=== PATIENT | female | born 1950 | race Caucasian/White ===

== ENCOUNTER 2017-10-05 16:59 | Inpatient (IN) | payer OTHER ==
--- NOTE | 2017-10-05 17:13 | PDOC ---
Rapid Medical Evaluation Time Seen by Provider: 10/05/17 17:08 Medical Evaluation: 10/05/17 17:11 The patient presents with a chief complaint of: SOB on exertion, weakness, tachycardia. Hx of stage 4 metastatic breast cancer. PCP concerned for blood clot behind the port site. last chemo one week ago. Started feeling SOB on Monday. Not on a/c I have performed a brief in-person evaluation of this patient; Pertinent physical exam findings: HR 99, O2 sat 96% I have ordered the following: CBC, CMP, EKG, CXR, PT/INR, CTA Chest, Cardiac labs The patient will proceed to the ED for further evaluation.
[2017-10-05 17:17] VITALS: BMI 29.7
[2017-10-05 18:11] LABS: INR 1.12 (0.82-1.09); PROTHROMBIN TIME (PATIENT) 12.6 SEC (9.98-11.88)
[2017-10-05 18:41] LABS: HEMATOCRIT 31.2 % (32.4-45.2); HEMOGLOBIN 10.1 GM/dL (10.7-15.3); MCH 27.5 pg (25.7-33.7); MCHC 32.5 g/dl (32.0-36.0); MEAN CELL VOLUME 84.6 fl (80-96); MEAN PLT VOLUME 8.4 fl (7.5-11.1); PLATELET COUNT 308 K/MM3 (134-434); RBC 3.69 M/mm3 (3.60-5.2); RDW 19.5 % (11.6-15.6); WHITE BLOOD COUNT 28.8 K/mm3 (4.0-10.0)
[2017-10-05 18:44] LABS: ALBUMIN 2.6 g/dl (3.4-5.0); ALK PHOS 156 U/L (45-117); ANION GAP 10 (8-16); BILIRUBIN,TOTAL 0.4 mg/dL (0.2-1.0); BLOOD UREA NITROGEN 11 mg/dL (7-18); CALCIUM 8.3 mg/dL (8.5-10.1); CHLORIDE 98 mmol/L (98-107); CO2 26 mmol/L (21-32); CREATININE 0.9 mg/dL (0.55-1.02); GLUCOSE,RANDOM 287 mg/dL (74-106); POTASSIUM 4.1 mmol/L (3.5-5.1); SGOT/AST 18 U/L (15-37); SGPT/ALT 17 U/L (12-78); SODIUM 134 mmol/L (136-145); TOT PROT 6.3 g/dl (6.4-8.2)
[2017-10-05 18:59] LABS: N-TERMINAL BNP 80.22 pg/ml (5-125)
[2017-10-05 19:36] LABS: PLATELET ESTIMATE ADEQUATE
--- NOTE | 2017-10-05 20:15 | PDOC ---
Attending Attestation - Resident Resident Name: Lino Wilson - ED Attending Attestation I have performed the following: I have examined & evaluated the patient, The case was reviewed & discussed with the resident, I agree w/resident's findings & plan, Exceptions are as noted - Medical Decision Making 10/05/17 20:15 I, Dr. Angeles Goss DO, attest that this document has been prepared under my direction and personally reviewed by me in its entirety. I further attest, that it accurately reflects all work, treatment, procedures and medical decision -making performed by me. 10/05/17 21:10 a/p: 67yo female with epigastric abd pain -pt with elevated wbc -suspected pna on cxr -ct does not show pna -will keep for ivf hydration and gi pain control -discussed with PMD who agrees with the plan -suspect epigastric pain from steroid induced gastritis <Angeles Goss - Last Filed: 10/05/17 21:10> - HPI HPI: 10/05/17 21:14 The patient is a 67 year old female, with a significant past medical history of stage 4 metastatic breast cancer, hypertension, hyperlipdemia and DM who presents to the ED complaining of an epigastric burning sensation beginning prior to arrival. The patient reports she visited her PCP Dr. Mathur earlier today who advised her to come to the ED for evaluation. Allergies: NKA Documentation prepared by Abad Coulter, acting as medical instrument cable fabricator for Angeles Goss DO. - Physicial Exam PE: 10/05/17 21:15 GENERAL: Awake, alert, and fully oriented. HEAD: No signs of trauma EYES: PERRLA, EOMI, sclera anicteric, conjunctiva clear ENT: Auricles normal inspection, hearing grossly normal, nares patent, oropharynx clear without exudates. Moist mucosa NECK: Normal ROM, supple, no lymphadenopathy, JVD, or masses LUNGS: Breath sounds equal, clear to auscultation bilaterally. No wheezes, and no crackles HEART: Regular rate and rhythm, normal S1 and S2, no murmurs, rubs or gallops ABDOMEN: +Tenderness to the epigastric region. Soft, normoactive bowel sounds. No guarding, no rebound. EXTREMITIES: Normal range of motion, no edema. No clubbing or cyanosis. No cords, erythema, or tenderness NEUROLOGICAL: Cranial nerves II through XII grossly intact. Normal speech. SKIN: Warm, Dry, normal turgor, no rashes or lesions noted. <Abad Coulter - Last Filed: 10/05/17 21:35>
[2017-10-05] MEDS ORDERED: VANCOMYCIN 1,000 MG in DEXTROSE 5%-WATER - 250 ML IVPB ONE (20:17)
[2017-10-05] MEDS ORDERED: PIPERACILLIN/TAZOB 4.5 GM/100 ML PRE-DOCKED IVPB ONE (20:17)
--- NOTE | 2017-10-05 20:18 | PDOC ---
History of Present Illness - General Chief Complaint: Shortness of Breath Stated Complaint: PCP SENT/BRADYCARDIA Time Seen by Provider: 10/05/17 17:08 History Source: Patient, Family (Daughter at bedside, translating) Exam Limitations: No Limitations - History of Present Illness Initial Comments: 10/05/17 21:15 The patient is a 67F with a PMH of stage 4 breast CA, HTN, HLD, DM who presents to the ER with complaints of worsening SOB. The patient states that her last chemo was on and she followed up with Dr. Mathur and her live in housekeeper. She was told to come to the ER for evaluation of her SOB because they were not able to do an echo in the clinic. She is complaining of increasing and worsening SOB with exertion. She denies chest pain but admits to a cough. She denies any fevers, chills, nausea, and vomiting. Past History - Past Medical History Allergies/Adverse Reactions: Allergies Allergy/AdvReac Type Severity Reaction Status Date / Time No Known Allergies Allergy Verified 10/05/17 17:10 Home Medications: Ambulatory Orders Ergocalciferol [Vitamin D2] 50,000 unit PO SA 10/05/17 Insulin Glargine,Hum.rec.anlog [Toujeo Solostar] 10 unit SQ AM 10/05/17 Levothyroxine [Synthroid -] 50 mcg PO DAILY 10/05/17 Lisinopril 10 mg PO DAILY 10/05/17 Metformin HCl [Glucophage] 1,000 mg PO BID 10/05/17 Simvastatin [Zocor -] 40 mg PO HS 10/05/17 Cardiac Disorders: No COPD: No DVT: No Diabetes: Yes HTN: Yes Hypercholesterolemia: Yes - Surgical History Cholecystectomy: Yes Lung Surgery: No (portacath) - Immunization History Immunization Up to Date: Yes - Suicide/Smoking/Psychosocial Hx Smoking History: Never smoked Have you smoked in the past 12 months: No If you are a former smoker, when did you quit?: 30YRS Information on smoking cessation initiated: No Hx Alcohol Use: No Drug/Substance Use Hx: No Substance Use Type: None Review of Systems - Review of Systems Able to Perform ROS?: Yes Comments:: 10/05/17 21:26 GENERAL/CONSTITUTIONAL: No fever or chills. No weakness. HEAD, EYES, EARS, NOSE AND THROAT: No change in vision. No ear pain or discharge. No sore throat. CARDIOVASCULAR: No chest pain, palpitations, or lightheadedness. RESPIRATORY: Positive for shortness of breath. No cough, wheezing, or hemoptysis. GASTROINTESTINAL: No nausea, vomiting, diarrhea, constipation, or abdominal pain. GENITOURINARY: No dysuria, frequency, hematuria, or change in urination. MUSCULOSKELETAL: No joint or muscle swelling or pain. No neck or back pain. SKIN: No rash or lesions. NEUROLOGIC: No headache, numbness, tingling, weakness, loss of consciousness, or change in strength/sensation. ENDOCRINE: No increased thirst. No abnormal weight change. HEMATOLOGIC/LYMPHATIC: No anemia, easy bleeding, or history of blood clots. ALLERGIC/IMMUNOLOGIC: No hives or skin allergy. Is the patient limited Korean proficient: No *Physical Exam - Vital Signs Last Vital Signs Temp Pulse Resp BP Pulse Ox 98.7 F 105 H 16 153/99 96 10/05/17 17:11 10/05/17 17:11 10/05/17 17:11 10/05/17 17:11 10/05/17 17:11 - Physical Exam Comments: 10/05/17 21:28 GENERAL: Well developed, well nourished. Awake and alert. No acute distress. HEENT: Normocephalic, atraumatic. Hearing grossly normal. Moist mucous membranes. PERRLA, EOMI. No conjunctival pallor. Sclera are non-icteric. NECK: Supple. Full ROM. No JVD. CARDIOVASCULAR: Regular rate and rhythm. No murmurs, rubs, or gallops. Distal pulses are 2+ and symmetric. PULMONARY: No evidence of respiratory distress. Mild rhonchi in bibasilar lungs. ABDOMINAL: Soft. Non-tender. Non-distended. No rebound or guarding. MUSCULOSKELETAL: Normal range of motion at all joints. No bony deformities or tenderness. EXTREMITIES: No cyanosis. No clubbing. No edema. No calf tenderness. SKIN: Warm and dry. Normal capillary refill. No rashes. No jaundice. NEUROLOGICAL: Alert, awake, appropriate. Cranial nerves 2-12 intact. Normal speech. Gait is normal without ataxia. PSYCHIATRIC: Cooperative. Good eye contact. Appropriate mood and affect. ED Treatment Course - LABORATORY CBC & Chemistry Diagram: 10/05/17 17:48 10/05/17 18:32 - ADDITIONAL ORDERS Additional order review: Laboratory Results 10/05/17 10/05/17 10/05/17 18:32 17:48 17:48 PT with INR 12.60 H INR 1.12 Sodium 134 L Potassium 4.1 Chloride 98 Carbon Dioxide 26 Anion Gap 10 BUN 11 Creatinine 0.9 Creat Clearance w eGFR > 60 Random Glucose 287 H Calcium 8.3 L Total Bilirubin 0.4 AST 18 ALT 17 Alkaline Phosphatase 156 H Creatine Kinase 31 Cancelled Troponin I < 0.02 Cancelled B-Natriuretic Peptide 80.22 Total Protein 6.3 L Albumin 2.6 L 10/05/17 17:48 PT with INR INR Sodium Cancelled Potassium Cancelled Chloride Cancelled Carbon Dioxide Cancelled Anion Gap Cancelled BUN Cancelled Creatinine Cancelled Creat Clearance w eGFR Cancelled Random Glucose Cancelled Calcium Cancelled Total Bilirubin Cancelled AST Cancelled ALT Cancelled Alkaline Phosphatase Cancelled Creatine Kinase Troponin I B-Natriuretic Peptide Total Protein Cancelled Albumin Cancelled 10/05/17 17:48 RBC 3.69 MCV 84.6 MCHC 32.5 RDW 19.5 H MPV 8.4 Neutrophils % No Result Required. Lymphocytes % No Result Required. Medical Decision Making - Medical Decision Making 10/05/17 21:30 The patient is a 67F with a PMH of stage 4 breast CA on chemo, HTN, HLD, DM who presents to the ER with acutely worsening SOB. CTA negative. CXR showing L basilar infiltrate. Covering with broad spectrum antibiotics I have spoken with Dr. Mathur who accepts the patient for med-surg admission. CBC significant for white count of 26, likely 2/2 to steroid use with chemo but possible infectious process as CTA is negative for PE. *DC/Admit/Observation/Transfer Diagnosis at time of Disposition: Shortness of breath - Discharge Dispostion Condition at time of disposition: Guarded Admit: Yes - Referrals - Patient Instructions - Post Discharge Activity
[2017-10-05] MEDS ORDERED: SUCRALFATE 1 GM TABLET (FP) PO ONE (20:35)
[2017-10-05] MEDS ORDERED: MAG HYDROX/AL HYDROX/SIMETH 30 ML UNIT-DOSE CUP PO ONE (20:35)
[2017-10-05] MEDS ORDERED: SODIUM CHLORIDE 0.9% 1000 ML INFUS.BAG IV ONE (20:35)
[2017-10-05] MEDS ORDERED: SUCRALFATE 1 GM TABLET (FP) ONE (21:21)
[2017-10-05] MEDS ORDERED: MAG HYDROX/AL HYDROX/SIMETH 30 ML UNIT-DOSE CUP ONE (21:21)
[2017-10-05] MEDS ORDERED: VANCOMYCIN 1 GRAM (PRE-DOCKED) 1,000 MG/250 ML BAG IVPB ONE (21:22)
[2017-10-05] MEDS ORDERED: PIPERACILLIN/TAZOB 4.5 GM 4.5 GM/100 ML BAG IVPB ONE (21:22)
--- NOTE | 2017-10-05 22:51 | HP ---
Admitting History and Physical - Admission History of Present Illness: The patient is a 67F with a PMH of stage 4 breast CA, HTN, HLD, DM who presents to the ER with complaints of worsening SOB. The patient states that her last chemo was on and she followed up with Dr. 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 She was told to come to the ER for evaluation of her SOB because they were not able to do an echo in the clinic. She is complaining of increasing and worsening SOB with exertion. She denies chest pain but admits to a cough. She denies any fevers, chills, nausea, and vomiting. She has been unable to get out of bed due to SOB and fatigue. History Source: Patient, Friend Limitations to Obtaining History: No Limitations - Past Medical History Cardiovascular: Yes: HTN, Hyperlipdemia Gastrointestinal: Yes: GERD Reproductive: Yes: Postmenopausal ...: No Heme/Onc: Yes: Cancer (breast Ca reoccurance stage 4) Endocrine: Yes: Diabetes Mellitus - Past Surgical History Past Surgical History: Yes: Mastectomy - Smoking History Smoking history: Never smoked Have you smoked in the past 12 months: No If you are a former smoker, when did you quit?: 30YRS - Alcohol/Substance Use Hx Alcohol Use: No History of Substance Use: reports: None - Social History Usual Living Arrangement: Yes: Alone ADL: Independent Home Medications - Allergies Allergies/Adverse Reactions: Allergies Allergy/AdvReac Type Severity Reaction Status Date / Time No Known Allergies Allergy Verified 10/05/17 17:10 - Home Medications Home Medications: Ambulatory Orders Ergocalciferol [Vitamin D2] 50,000 unit PO SA 10/05/17 Insulin Glargine,Hum.rec.anlog [Toujeo Solostar] 10 unit SQ AM 10/05/17 Levothyroxine [Synthroid -] 50 mcg PO DAILY 10/05/17 Lisinopril 10 mg PO DAILY 10/05/17 Metformin HCl [Glucophage] 1,000 mg PO BID 10/05/17 Simvastatin [Zocor -] 40 mg PO HS 10/05/17 Review of Systems - Review of Systems Constitutional: reports: Loss of Appetite, Weakness, Other. denies: Chills, Fever, Lethargy, Night Sweats Eyes: reports: No Symptoms HENT: reports: No Symptoms. denies: Difficult Swallowing, Throat Pain Neck: reports: No Symptoms. denies: Stiffness, Swollen Glands Cardiovascular: reports: Edema, Shortness of Breath. denies: Chest Pain, Palpitations Respiratory: reports: Cough, SOB, SOB on Exertion Gastrointestinal: reports: No Symptoms Genitourinary: reports: No Symptoms Musculoskeletal: reports: Other (lymphedema left arm) Integumentary: reports: No Symptoms Neurological: reports: No Symptoms, Weakness Endocrine: denies: Excessive Sweating, Increased Thirst, Intolerance to Cold Hematology/Lymphatic: reports: No Symptoms Psychiatric: reports: No Symptoms Physical Examination Vital Signs: Vital Signs Temperature 98.7 F 10/05/17 17:11 Pulse Rate 105 H 10/05/17 17:11 Respiratory Rate 16 10/05/17 17:11 Blood Pressure 153/99 10/05/17 17:11 O2 Sat by Pulse Oximetry (%) 96 10/05/17 17:11 Constitutional: Yes: Well Nourished, [place], Mild Distress, Pallor Eyes: Yes: WNL HENT: Yes: WNL Neck: Yes: Supple, Trachea Midline Cardiovascular: Yes: Regular Rate and Rhythm Respiratory: Yes: CTA Bilaterally Gastrointestinal: Yes: Abdomen, Obese ...Rectal Exam: Yes: WNL Renal/: Yes: WNL Breast(s): Yes: Left (mastectomy) Musculoskeletal: Yes: Joint Swelling (arm swelling --lymphadenopathy) Extremities: Yes: Deformity (left), Delayed Capillary Refill (left) Edema: LUE: 4+ (lymphedema), LLE: 1+ Peripheral Pulses: Left Radial: 2+, Right Radial: 2+, Left Doralis Pedis: 2+, Right Dorsalis Pedis: 2+, Left Femoral: 2+, Right Femoral: 2+ Neurological: Yes: Alert, Oriented ...Motor Strength: WNL Psychiatric: Yes: Alert, Oriented Labs: CBC, BMP 10/05/17 17:48 10/05/17 18:32 Problem List - Problems (1) Shortness of breath Code(s): R06.02 - SHORTNESS OF BREATH (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
[2017-10-06] MEDS ORDERED: ACETAMINOPHEN 325 MG TABLET (FP) ONE (06:45)
[2017-10-06] MEDS: ACETAMINOPHEN 325 MG TABLET (FP) PO PRN (06:53)
[2017-10-06] MEDS ORDERED: metFORMIN HCL 500 MG TABLET (FP) PO SCH (07:00)
[2017-10-06] MEDS ORDERED: LEVOTHYROXINE NA 25 MCG TABLET (FP) ONE (07:53)
[2017-10-06] MEDS ORDERED: INSULIN DETEMIR 100 UNITS/ML MDV SQ ONE (07:53)
[2017-10-06] MEDS: INSULIN DETEMIR 100 UNITS/ML MDV SQ SCH ×2 (08:03→17:50)
[2017-10-06] MEDS: LEVOTHYROXINE NA 50 MCG TABLET (FP) PO SCH (08:05)
[2017-10-06 08:52] LABS: HEMATOCRIT 29.5 % (32.4-45.2); HEMOGLOBIN 9.3 GM/dL (10.7-15.3); MCH 26.5 pg (25.7-33.7); MCHC 31.5 g/dl (32.0-36.0); MEAN CELL VOLUME 84.2 fl (80-96); MEAN PLT VOLUME 8.2 fl (7.5-11.1); PLATELET COUNT 296 K/MM3 (134-434); RBC 3.51 M/mm3 (3.60-5.2); RDW 19.3 % (11.6-15.6); WHITE BLOOD COUNT 25.7 K/mm3 (4.0-10.0)
[2017-10-06 09:26] LABS: ALBUMIN 2.4 g/dl (3.4-5.0); ALK PHOS 134 U/L (45-117); ANION GAP 11 (8-16); BILIRUBIN,TOTAL 0.5 mg/dL (0.2-1.0); BLOOD UREA NITROGEN 10 mg/dL (7-18); CALCIUM 7.7 mg/dL (8.5-10.1); CHLORIDE 99 mmol/L (98-107); CO2 25 mmol/L (21-32); GLUCOSE,RANDOM 290 mg/dL (74-106); MAGNESIUM 1.6 mg/dL (1.8-2.4); PHOSPHOROUS 2.1 mg/dL (2.5-4.9); SGOT/AST 19 U/L (15-37); SGPT/ALT 17 U/L (12-78); SODIUM 135 mmol/L (136-145)
--- NOTE | 2017-10-06 09:47 | EKG ---
Test Reason : Blood Pressure : / mmHG Vent. Rate : 099 BPM Atrial Rate : 099 BPM P-R Int : 166 ms QRS Dur : 100 ms QT Int : 354 ms P-R-T Axes : 038 -40 031 degrees QTc Int : 454 ms NORMAL SINUS RHYTHM POSSIBLE LEFT ATRIAL ENLARGEMENT LEFT AXIS DEVIATION LOW VOLTAGE QRS POSSIBLE INFERIOR INFARCT , AGE UNDETERMINED POSSIBLE ANTEROLATERAL INFARCT , AGE UNDETERMINED ABNORMAL ECG NO PREVIOUS ECGS AVAILABLE Confirmed by JULIEN TAMAYO MD ([id number]) on 10/06/2017 9:46:29 AM Referred By: Confirmed By:JULIEN TAMAYO MD
[2017-10-06] MEDS: HEPARIN NA (PORCINE) 5,000 UNITS/ML 1ML VIAL SQ SCH ×2 (09:54→22:28)
[2017-10-06] MEDS: LISINOPRIL 10 MG TABLET (FP) PO SCH (09:54)
--- NOTE | 2017-10-06 10:48 | PN ---
Progress Note (short form) - Note Progress Note: ID Consult dictated Fever/tachycardia/ dyspnea; probable sepsis Leukocytosis- ? neupogen/ sepsis Stage IV breast ca Diabetes mellitus Await sepsis work up Empiric vancomycin/ cefepime
--- NOTE | 2017-10-06 10:55 | CON.CARD ---
Cardiology Consult (text) - Consultation Consultation Note: cc: sob hpi: 67 f hx metastatic breast ca on chemo, hld, dm, htn, here with 1 week sob/ teresa. No cp, palps, dizzy, loc, pnd, orthopnea, le edema. No hx hrt dz. Treating for sepsis currently. pmh: per hpi psh: mastectomy social: ex tob fam: no premature cad, scd ros: per hpi; no nvd, vargas, vision changes, hematuria, dysruia, gib, cough, nasal congestion meds: Home Medications Medication Instructions Recorded Ergocalciferol [Vitamin D2] 50,000 unit PO SA 10/05/17 Insulin Glargine,Hum.rec.anlog 10 unit SQ AM 10/05/17 [Toujeo Solostar] Levothyroxine [Synthroid -] 50 mcg PO DAILY 10/05/17 Lisinopril 10 mg PO DAILY 10/05/17 Metformin HCl [Glucophage] 1,000 mg PO BID 10/05/17 Simvastatin [Zocor -] 40 mg PO HS 10/05/17 pe: Vital Signs Period Temp Pulse Resp BP Sys/Cortez Pulse Ox Last 24 Hr 98.6 F-101.1 F 89-111 16-18 102-153/56-99 96-96 nad no jvd rrr s1s2 no mrg cta bl nl eff aaox3 no le e/c/c abd nt nd pos bs no jaundice diaphoresis pos dp pt no carotid bruits Laboratory Last Values WBC 25.7 K/mm3 (4.0-10.0) H 10/06/17 08:10 RBC 3.51 M/mm3 (3.60-5.2) L 10/06/17 08:10 Hgb 9.3 GM/dL (10.7-15.3) L 10/06/17 08:10 Hct 29.5 % (32.4-45.2) L 10/06/17 08:10 MCV 84.2 fl (80-96) 10/06/17 08:10 MCH 26.5 pg (25.7-33.7) 10/06/17 08:10 MCHC 31.5 g/dl (32.0-36.0) L 10/06/17 08:10 RDW 19.3 % (11.6-15.6) H 10/06/17 08:10 Plt Count 296 K/MM3 (134-434) 10/06/17 08:10 MPV 8.2 fl (7.5-11.1) 10/06/17 08:10 Neutrophils % No Result Required. 10/06/17 08:10 Neutrophils % (Manual) 60.0 % (42.8-82.8) 10/05/17 17:48 Band Neutrophils % 25.0 % 10/05/17 17:48 Lymphocytes % No Result Required. 10/06/17 08:10 Lymphocytes % (Manual) 3.0 % (8-40) L 10/05/17 17:48 Monocytes % (Manual) 5 % (3.8-10.2) 10/05/17 17:48 Eosinophils % (Manual) 0.0 % (0-4.5) 10/05/17 17:48 Basophils % (Manual) 0.0 % (0-2.0) 10/05/17 17:48 Myelocytes % (Man) 4 % (0-2) H 10/05/17 17:48 Nucleated RBC % 2 % (0-0) H 10/05/17 17:48 Metamyelocytes 1 % (0-2) 10/05/17 17:48 Platelet Estimate Adequate 10/05/17 17:48 PT with INR 12.60 SEC (9.98-11.88) H 10/05/17 17:48 INR 1.12 (0.82-1.09) 10/05/17 17:48 Sodium 135 mmol/L (136-145) L 10/06/17 08:10 Potassium 4.0 mmol/L (3.5-5.1) 10/06/17 08:10 Chloride 99 mmol/L (98-107) 10/06/17 08:10 Carbon Dioxide 25 mmol/L (21-32) 10/06/17 08:10 Anion Gap 11 (8-16) 10/06/17 08:10 BUN 10 mg/dL (7-18) 10/06/17 08:10 Creatinine 1.0 mg/dL (0.55-1.02) 10/06/17 08:10 Creat Clearance w eGFR 55.47 (>60) 10/06/17 08:10 Random Glucose 290 mg/dL (74-106) H 10/06/17 08:10 Lactic Acid 1.6 mmol/L (0.0-2.0) 10/05/17 21:15 Calcium 7.7 mg/dL (8.5-10.1) L 10/06/17 08:10 Phosphorus 2.1 mg/dL (2.5-4.9) L 10/06/17 08:10 Magnesium 1.6 mg/dL (1.8-2.4) L 10/06/17 08:10 Total Bilirubin 0.5 mg/dL (0.2-1.0) D 10/06/17 08:10 AST 19 U/L (15-37) 10/06/17 08:10 ALT 17 U/L (12-78) 10/06/17 08:10 Alkaline Phosphatase 134 U/L (45-117) H 10/06/17 08:10 Creatine Kinase 31 IU/L (26-192) 10/05/17 18:32 Troponin I < 0.02 ng/ml (0.00-0.05) 10/05/17 18:32 B-Natriuretic Peptide 80.22 pg/ml (5-125) 10/05/17 18:32 Total Protein 6.0 g/dl (6.4-8.2) L 10/06/17 08:10 Albumin 2.4 g/dl (3.4-5.0) L 10/06/17 08:10 cta chest: no pe, no chf ecg: sr, nl intervals, irbbb, no st changes mibi 04/2017: no ecg changes with exercise, nl mpi, lvef 47% a/p: 67 f hx metastatic breast ca on chemo, hld, dm, htn, here with 1 week sob/ teresa. sob: -no signs chf on exam or ct chest. bnp low. -no signs acs -recent mibi with no ischemia -check echo -likely infectious etiology (?pna) given fever and elevated wbc. abx per ID. hld: -cont statin htn: -cont acei
[2017-10-06] MEDS ORDERED: CEFEPIME HCL 1 GM VIAL (RESTRICTED TO ID) IVPB SCH (11:00)
--- NOTE | 2017-10-06 11:09 | CONS ---
DATE OF CONSULTATION: HISTORY: The patient is a 67-year-old female with a history of stage 4 breast cancer evaluated for fever and elevated white blood cell count. The patient is followed at another institution. She has stage 4 breast cancer and is receiving chemotherapy. Her last cycle of chemotherapy was on September. She had apparently been undergoing an echocardiogram when she became short of breath and was unable to complete the study. She had complained of shortness of breath on exertion for the past 3-4 days associated with generalized weakness. She was referred to the emergency room where the patient was noted to be tachycardic and dyspneic. In addition, her temperature in the emergency room was 101.1. Chest x-ray showed possible left lower lobe infiltrate. A CAT scan of the chest was performed to rule out pulmonary embolism and revealed no evidence of pulmonary embolism, fibrotic changes, and pleural thickening within the left lung apex, cardiomegaly, and a Port-A-Cath. Also evidence of possible bony metastases. In the emergency room, temperature was 101.1. Cultures were obtained. She was empirically treated with vancomycin and cefepime. The patient is awake and alert. She complains of epigastric discomfort. She denies any chest pain or shortness of breath. Denies cough, sputum production, vomiting, diarrhea, or pain at the port site. PAST MEDICAL HISTORY: Positive for stage 4 breast cancer. She is status post mastectomy, radiation, and chemotherapy, history of hypertension, hyperlipidemia, diabetes mellitus gastroesophageal reflux. ALLERGIES: No known allergies. MEDICATIONS: Include vitamin D, insulin, Synthroid, lisinopril, Glucophage, Zocor. SOCIAL HISTORY: Resides at home. She is a nonsmoker, nondrinker. SYSTEMS REVIEW: Neurologic: No loss of consciousness, seizure activity, focal weakness. Cardiac: Negative chest pain or palpitations. Respiratory: As per HPI. Gastrointestinal: Positive for gastroesophageal reflux. Genitourinary: Negative for urinary tract infection. LABORATORY DATA: White count on admission 28,060 neutrophils, 25 bands, hematocrit 29.5, platelet count 296. BUN 10, creatinine 1. Culture is pending. Urinalysis pending. PHYSICAL EXAMINATION: General: She is awake, alert, obese in no acute distress. Her breathing is nonlabored. Vital Signs: T-max 101.1, blood pressure 123/75, pulse 110 and regular, respirations 18 per minute. HEENT: Sclerae anicteric. Oropharynx negative mucositis or thrush. Skin: Port site no erythema or tenderness. Heart: Sounds S1, S2. Lungs: A few rhonchi bilaterally. No rales or wheezing. Abdomen: Obese, soft. No tenderness elicited. No mass, rebound, or rigidity. Extremities: Positive for pedal edema and left upper extremity lymphedema. IMPRESSION: 1. Fever, tachypnea, tachycardia, possible sepsis. 2. Leukocytosis likely secondary to recent Neupogen or Neulasta. 3. Stage 4 breast cancer. 4. Diabetes mellitus. PLAN: Obtain cultures, urinalysis, urine culture. Influenza swab. Empiric antibiotic coverage in this nonneutropenic patient with vancomycin and cefepime. We will follow. Thank you for the kind referral. JULIEN POPE M.D. [id number]
[2017-10-06] MEDS ORDERED: VANCOMYCIN 1 GRAM (PRE-DOCKED) 1,000 MG/250 ML BAG IVPB ONE (11:27)
[2017-10-06] MEDS ORDERED: CEFEPIME 1 GM/100 ML BAG IVPB ONE (11:27)
[2017-10-06] MEDS: CEFEPIME HCL/D5W 1 GM/50 ML BAG IVPB SCH ×2 (11:31→17:47)
[2017-10-06] MEDS: VANCOMYCIN 1,000 MG in DEXTROSE 5%-WATER - 250 ML IVPB SCH (11:39)
[2017-10-06 12:49] LABS: ANISOCYTOSIS 2+; PLATELET ESTIMATE NORMAL
[2017-10-06 13:30] LABS: URINE APPEARANCE CLEAR; URINE BILIRUBIN NEGATIVE (NEGATIVE); URINE BLOOD NEGATIVE (NEGATIVE); URINE COLOR STRAW; URINE GLUCOSE (UA) 3+ (NEGATIVE); URINE KETONE NEGATIVE (NEGATIVE); URINE LEUK ESTERASE NEGATIVE (NEGATIVE); URINE NITRITE NEGATIVE (NEGATIVE); URINE PROTEIN NEGATIVE (NEGATIVE); URINE UROBILINOGEN NEGATIVE mg/dL (0.2-1.0)
[2017-10-06] MEDS ORDERED: FLU VACCINE QUAD 60 MCG/0.5 ML (MDV 17-18) IM ONE (15:45)
[2017-10-06] MEDS: INSULIN SLIDING SCALE (NOVOLOG) 1 VIAL SQ SCH ×2 (17:50→22:26)
[2017-10-06] MEDS: ATORVASTATIN CA 40 MG TABLET (FP) PO SCH (22:28)
[2017-10-07] MEDS ORDERED: PT OWN MED DRAWER 7, Y5N ONE ×2 (00:28→22:51)
[2017-10-07] MEDS: VANCOMYCIN 1,000 MG in DEXTROSE 5%-WATER - 250 ML IVPB SCH ×3 (00:51→23:01)
[2017-10-07] MEDS: CEFEPIME HCL/D5W 1 GM/50 ML BAG IVPB SCH ×3 (02:44→18:42)
[2017-10-07] MEDS: INSULIN SLIDING SCALE (NOVOLOG) 1 VIAL SQ SCH ×4 (06:09→22:47)
[2017-10-07] MEDS: ACETAMINOPHEN 325 MG TABLET (FP) PO PRN ×2 (06:11→17:25)
[2017-10-07] MEDS: LEVOTHYROXINE NA 50 MCG TABLET (FP) PO SCH (06:11)
[2017-10-07] MEDS ORDERED: INSULIN (NOVOLOG) ASPART 100 UNITS/ML 10ML VIAL ONE ×2 (07:37→08:43)
[2017-10-07 07:52] LABS: HEMATOCRIT 27.8 % (32.4-45.2); HEMOGLOBIN 8.7 GM/dL (10.7-15.3); MCH 26.7 pg (25.7-33.7); MCHC 31.5 g/dl (32.0-36.0); MEAN CELL VOLUME 84.7 fl (80-96); MEAN PLT VOLUME 8.4 fl (7.5-11.1); PLATELET COUNT 260 K/MM3 (134-434); RBC 3.28 M/mm3 (3.60-5.2); RDW 19.5 % (11.6-15.6); WHITE BLOOD COUNT 22.4 K/mm3 (4.0-10.0)
[2017-10-07] MEDS: INSULIN DETEMIR 100 UNITS/ML MDV SQ SCH ×2 (08:00→17:25)
[2017-10-07 08:05] LABS: CHLORIDE 103 mmol/L (98-107); POTASSIUM 3.2 mmol/L (3.5-5.1); SODIUM 139 mmol/L (136-145)
[2017-10-07 08:14] LABS: ALBUMIN 2.1 g/dl (3.4-5.0); ALK PHOS 101 U/L (45-117); ANION GAP 9 (8-16); BILIRUBIN,TOTAL 0.6 mg/dL (0.2-1.0); BLOOD UREA NITROGEN 7 mg/dL (7-18); CALCIUM 7.6 mg/dL (8.5-10.1); CO2 27 mmol/L (21-32); CREATININE 0.7 mg/dL (0.55-1.02); GLUCOSE,RANDOM 51 mg/dL (74-106); MAGNESIUM 1.6 mg/dL (1.8-2.4); PHOSPHOROUS 2.2 mg/dL (2.5-4.9); SGOT/AST 14 U/L (15-37); SGPT/ALT 17 U/L (12-78); TOT PROT 5.3 g/dl (6.4-8.2)
[2017-10-07] MEDS ORDERED: INSULIN DETEMIR 100 UNITS/ML MDV SQ ONE (08:43)
[2017-10-07] MEDS: LISINOPRIL 10 MG TABLET (FP) PO SCH (10:55)
[2017-10-07] MEDS: HEPARIN NA (PORCINE) 5,000 UNITS/ML 1ML VIAL SQ SCH ×2 (10:55→22:46)
--- NOTE | 2017-10-07 12:22 | EKG ---
Test Reason : Blood Pressure : / mmHG Vent. Rate : 100 BPM Atrial Rate : 100 BPM P-R Int : 172 ms QRS Dur : 088 ms QT Int : 358 ms P-R-T Axes : 039 -41 030 degrees QTc Int : 461 ms NORMAL SINUS RHYTHM POSSIBLE LEFT ATRIAL ENLARGEMENT LEFT AXIS DEVIATION LOW VOLTAGE QRS INFERIOR INFARCT (CITED ON OR BEFORE 05-OCT-2017) POSSIBLE ANTEROLATERAL INFARCT (CITED ON OR BEFORE 05-OCT-2017) ABNORMAL ECG Confirmed by MD ALEYDA, SOLOMON ([id number]) on 10/07/2017 12:21:37 PM Referred By: KENNY PAGAN Confirmed By:SOLOMON MAYNARD MD
[2017-10-07] MEDS ORDERED: MAGNESIUM 4GM/H20 - 4 GM/100 ML IVPB IVPB ONE (13:48)
[2017-10-07] MEDS ORDERED: POTASSIUM CHLORIDE TABS 20 MEQ TABLET.ER (FP) PO ONE (13:49)
--- NOTE | 2017-10-07 14:19 | PN ---
Progress Note, Physician History of Present Illness: More awake and alert. Seated in bed Non-toxic appearing Breathing non- labored Low grade temps WBC remains elevated BC prelim no growth - Current Medication List Current Medications: Active Medications Acetaminophen (Tylenol -) 650 mg PO Q4H PRN PRN Reason: FEVER Last Admin: 10/07/17 06:11 Dose: 650 mg Atorvastatin Calcium (Lipitor -) 40 mg PO HS [facility] Last Admin: 10/06/17 22:28 Dose: 40 mg Heparin Sodium (Porcine) (Heparin -) 5,000 unit SQ BID [facility] Last Admin: 10/07/17 10:55 Dose: 5,000 unit Vancomycin HCl 1,000 mg/ (Dextrose) 250 mls @ 200 mls/hr IVPB BID@0000,1200 [facility] Last Admin: 10/07/17 12:00 Dose: 200 mls/hr Cefepime HCl (Maxipime 1 Gm Premix Ivpb) 1 gm in 50 mls @ 100 mls/hr IVPB Q8H- IV [facility] Last Admin: 10/07/17 10:54 Dose: 100 mls/hr Magnesium Sulfate (Magnesium 4gm/H20 -) 4 gm in 100 mls @ 33.333 mls/hr IVPB ONCE ONE Stop: 10/07/17 16:47 Insulin Aspart (Novolog Vial Sliding Scale -) 1 vial SQ ACHS [facility] PRN Reason: Protocol Last Admin: 10/07/17 11:47 Dose: Not Given Insulin Detemir (Levemir Vial) 10 units SQ BIDI [facility] Last Admin: 10/07/17 08:00 Dose: 10 units Levothyroxine Sodium (Synthroid -) 50 mcg PO DAILY@0700 [facility] Last Admin: 10/07/17 06:11 Dose: 50 mcg Lisinopril (Prinivil) 10 mg PO DAILY [facility] Last Admin: 10/07/17 10:55 Dose: 10 mg Potassium Phos/Sodium Phos (Phos-Nak Packet -) 1 packet PO BID [facility] - Objective Vital Signs: Vital Signs Temperature 97.8 F 10/07/17 13:26 Pulse Rate 101 H 10/07/17 13:26 Respiratory Rate 20 10/07/17 13:26 Blood Pressure 137/75 10/07/17 13:26 O2 Sat by Pulse Oximetry (%) 100 10/07/17 09:00 Constitutional: Yes: No Distress Eyes: Yes: Conjunctiva Clear Cardiovascular: Yes: Regular Rate and Rhythm, S1, S2 Respiratory: Yes: CTA Bilaterally Gastrointestinal: Yes: Normal Bowel Sounds, Soft, Abdomen, Obese, Other (no tenderness) Edema: Yes (+ L UE lymphedema) Labs: CBC, BMP 10/07/17 06:00 10/07/17 06:00 INR, PTT INR 1.12 (0.82-1.09) 10/05/17 17:48 Assessment/Plan Sepsis syndrome improved Leukocytosis multifactorial Stage IV breast ca Diabetes mellitus Await c/s Continue empiric cefepime/vancomycin Discussed with family members at bedside
[2017-10-07] MEDS: NAPH,MB-DB/K PH,MBDB POWDER PACKET PO SCH ×2 (14:53→22:47)
--- NOTE | 2017-10-07 15:05 | PN ---
Progress Note (short form) - Note Progress Note: seen in ER awaiting bed states feeling better / low grade temp O2 in place Vital Signs Period Temp Pulse Resp BP Sys/Cortez Pulse Ox Last 24 Hr 97.8 F-100 F 101-115 18-22 121-137/63-77 99-100 neck supple -JVD heart S1/S2 lungs crackles at bases abd soft ext no edema CTA - negative for PE Inc wBc blood c/s done CBC, BMP 10/07/17 06:00 10/07/17 06:00 Echo on order -- s/p chemo ?cardiomyopathy # stage 4 Breast CA undergoing chemo -- last treatment approx 1 week ago consider anemia / cardiomyopathy / infections as cause of dyspnea # dyspnea no evidence of HF await echo mccormick c/s antibiotics per ID anemia # Diabetes Mellitis Diabetic diet / sliding scale last HgA1c 9.9 had been on steroids during chemo Problem List - Problems (1) Shortness of breath Code(s): R06.02 - SHORTNESS OF BREATH (2) Cardiomyopathy due to chemotherapy Code(s): I42.7 - CARDIOMYOPATHY DUE TO DRUG AND EXTERNAL AGENT; T45.1X5A - ADVERSE EFFECT OF ANTINEOPLASTIC AND IMMUNOSUP DRUGS, INIT (3) Cancer of left breast, stage 4 Code(s): C50.912 - MALIGNANT NEOPLASM OF UNSPECIFIED SITE OF LEFT FEMALE BREAST (4) Diabetes Code(s): E11.9 - TYPE 2 DIABETES MELLITUS WITHOUT COMPLICATIONS
--- NOTE | 2017-10-07 15:09 | PN ---
Progress Note (short form) - Note Progress Note: seen in ER awaiting bed states feeling better / low grade temp O2 in place Vital Signs Period Temp Pulse Resp BP Sys/Cortez Pulse Ox Last 24 Hr 97.8 F-100 F 101-115 18-22 121-137/63-77 99-100 neck supple -JVD heart S1/S2 lungs crackles at bases abd soft ext no edema CTA - negative for PE Inc wBc blood c/s done Echo on order -- s/p chemo ?cardiomyopathy # stage 4 Breast CA undergoing chemo -- last treatment approx 1 week ago consider anemia / cardiomyopathy / infections as cause of dyspnea # dyspnea no evidence of HF await echo mccormick c/s antibiotics per ID anemia # Diabetes Mellitis Diabetic diet / sliding scale last HgA1c 9.9 had been on steroids during chemo Problem List - Problems (1) Shortness of breath Code(s): R06.02 - SHORTNESS OF BREATH (2) Cardiomyopathy due to chemotherapy Code(s): I42.7 - CARDIOMYOPATHY DUE TO DRUG AND EXTERNAL AGENT; T45.1X5A - ADVERSE EFFECT OF ANTINEOPLASTIC AND IMMUNOSUP DRUGS, INIT (3) Cancer of left breast, stage 4 Code(s): C50.912 - MALIGNANT NEOPLASM OF UNSPECIFIED SITE OF LEFT FEMALE BREAST (4) Diabetes Code(s): E11.9 - TYPE 2 DIABETES MELLITUS WITHOUT COMPLICATIONS
[2017-10-07] MEDS: MAGNESIUM SULFATE IN WATER 2 GM/50 ML IVPB IVPB SCH ×2 (15:26→17:26)
[2017-10-07] MEDS: DOCUSATE SODIUM 100 MG CAPSULE (FP) PO SCH ×2 (15:27→22:46)
[2017-10-07] MEDS: FOLIC ACID 1 MG TABLET (FP) PO SCH (15:27)
[2017-10-07] MEDS: FERROUS SO4 325 MG TABLET (FP) PO SCH (17:25)
[2017-10-07] MEDS: ATORVASTATIN CA 40 MG TABLET (FP) PO SCH (22:47)
[2017-10-08] MEDS ORDERED: PT OWN MED DRAWER 7, Y5N ONE (01:51)
[2017-10-08] MEDS: CEFEPIME HCL/D5W 1 GM/50 ML BAG IVPB SCH ×3 (02:07→18:20)
[2017-10-08] MEDS: INSULIN SLIDING SCALE (NOVOLOG) 1 VIAL SQ SCH ×4 (07:43→21:33)
[2017-10-08] MEDS ORDERED: INSULIN (NOVOLOG) ASPART 100 UNITS/ML 10ML VIAL ONE ×2 (07:47→18:11)
[2017-10-08] MEDS: ACETAMINOPHEN 325 MG TABLET (FP) PO PRN (07:48)
[2017-10-08] MEDS: FERROUS SO4 325 MG TABLET (FP) PO SCH ×3 (07:48→16:40)
[2017-10-08] MEDS: DOCUSATE SODIUM 100 MG CAPSULE (FP) PO SCH ×3 (07:48→21:32)
[2017-10-08] MEDS: LEVOTHYROXINE NA 50 MCG TABLET (FP) PO SCH (07:48)
[2017-10-08] MEDS: INSULIN DETEMIR 100 UNITS/ML MDV SQ SCH ×2 (07:50→16:39)
[2017-10-08] MEDS: NAPH,MB-DB/K PH,MBDB POWDER PACKET PO SCH ×2 (09:24→21:33)
[2017-10-08] MEDS: HEPARIN NA (PORCINE) 5,000 UNITS/ML 1ML VIAL SQ SCH ×2 (09:24→21:30)
[2017-10-08] MEDS: LISINOPRIL 10 MG TABLET (FP) PO SCH (09:24)
[2017-10-08] MEDS: FOLIC ACID 1 MG TABLET (FP) PO SCH (09:24)
[2017-10-08] MEDS: VANCOMYCIN 1,000 MG in DEXTROSE 5%-WATER - 250 ML IVPB SCH (12:15)
--- NOTE | 2017-10-08 16:22 | PN ---
Progress Note, Physician History of Present Illness: More awake and alert. Offers no complaints. Ambulatory Non-toxic appearing Breathing non- labored Temp noted WBC remains elevated BC prelim no growth - Current Medication List Current Medications: Active Medications Acetaminophen (Tylenol -) 650 mg PO Q4H PRN PRN Reason: FEVER Last Admin: 10/08/17 07:48 Dose: 650 mg Atorvastatin Calcium (Lipitor -) 40 mg PO HS [facility] Last Admin: 10/07/17 22:47 Dose: 40 mg Docusate Sodium (Colace -) 100 mg PO TID [facility] Last Admin: 10/08/17 07:48 Dose: 100 mg Ferrous Sulfate (Feosol -) 325 mg PO TIDCM [facility] Last Admin: 10/08/17 12:21 Dose: 325 mg Folic Acid (Folic Acid -) 1 mg PO DAILY [facility] Last Admin: 10/08/17 09:24 Dose: 1 mg Heparin Sodium (Porcine) (Heparin -) 5,000 unit SQ BID [facility] Last Admin: 10/08/17 09:24 Dose: 5,000 unit Vancomycin HCl 1,000 mg/ (Dextrose) 250 mls @ 200 mls/hr IVPB BID@0000,1200 [facility] Last Admin: 10/08/17 12:15 Dose: 200 mls/hr Cefepime HCl (Maxipime 1 Gm Premix Ivpb) 1 gm in 50 mls @ 100 mls/hr IVPB Q8H- IV [facility] Last Admin: 10/08/17 09:24 Dose: 100 mls/hr Insulin Aspart (Novolog Vial Sliding Scale -) 1 vial SQ ACHS [facility] PRN Reason: Protocol Last Admin: 10/08/17 12:14 Dose: Not Given Insulin Detemir (Levemir Vial) 10 units SQ BIDI [facility] Last Admin: 10/08/17 07:50 Dose: 10 units Levothyroxine Sodium (Synthroid -) 50 mcg PO DAILY@0700 [facility] Last Admin: 10/08/17 07:48 Dose: 50 mcg Lisinopril (Prinivil) 10 mg PO DAILY [facility] Last Admin: 10/08/17 09:24 Dose: 10 mg Potassium Phos/Sodium Phos (Phos-Nak Packet -) 1 packet PO BID [facility] Last Admin: 10/08/17 09:24 Dose: 1 packet - Objective Vital Signs: Vital Signs Temperature 98 F 10/08/17 14:33 Pulse Rate 96 H 10/08/17 14:33 Respiratory Rate 20 10/08/17 14:33 Blood Pressure 115/56 10/08/17 14:33 O2 Sat by Pulse Oximetry (%) 95 10/07/17 20:31 Constitutional: Yes: No Distress Cardiovascular: Yes: Regular Rate and Rhythm, S1, S2 Respiratory: Yes: CTA Bilaterally Gastrointestinal: Yes: Normal Bowel Sounds, Soft Edema: No Labs: CBC, BMP 10/07/17 06:00 10/07/17 06:00 INR, PTT INR 1.12 (0.82-1.09) 10/05/17 17:48 Assessment/Plan Sepsis syndrome clinically improved Leukocytosis multifactorial Stage IV breast ca Diabetes mellitus Await c/s Continue empiric cefepime D/C vancomycin
--- NOTE | 2017-10-08 18:40 | PN ---
Progress Note (short form) - Note Progress Note: cc: sob S: + fever this morning. pt endorses chills this afternoon. + sob unchanged. no cp, palps, dizziness. Current Medications Acetaminophen (Tylenol -) 650 mg PO Q4H PRN PRN Reason: FEVER Last Admin: 10/08/17 07:48 Dose: 650 mg Atorvastatin Calcium (Lipitor -) 40 mg PO HS [facility] Last Admin: 10/07/17 22:47 Dose: 40 mg Docusate Sodium (Colace -) 100 mg PO TID [facility] Last Admin: 10/08/17 14:00 Dose: 100 mg Ferrous Sulfate (Feosol -) 325 mg PO TIDCM [facility] Last Admin: 10/08/17 16:40 Dose: 325 mg Folic Acid (Folic Acid -) 1 mg PO DAILY [facility] Last Admin: 10/08/17 09:24 Dose: 1 mg Heparin Sodium (Porcine) (Heparin -) 5,000 unit SQ BID [facility] Last Admin: 10/08/17 09:24 Dose: 5,000 unit Cefepime HCl (Maxipime 1 Gm Premix Ivpb) 1 gm in 50 mls @ 100 mls/hr IVPB Q8H- IV [facility] Last Admin: 10/08/17 18:20 Dose: 100 mls/hr Insulin Aspart (Novolog Vial Sliding Scale -) 1 vial SQ ACHS [facility] PRN Reason: Protocol Last Admin: 10/08/17 16:46 Dose: 2 units Insulin Detemir (Levemir Vial) 10 units SQ BIDI [facility] Last Admin: 10/08/17 16:39 Dose: 10 units Levothyroxine Sodium (Synthroid -) 50 mcg PO DAILY@0700 [facility] Last Admin: 10/08/17 07:48 Dose: 50 mcg Lisinopril (Prinivil) 10 mg PO DAILY [facility] Last Admin: 10/08/17 09:24 Dose: 10 mg Potassium Phos/Sodium Phos (Phos-Nak Packet -) 1 packet PO BID [facility] Last Admin: 10/08/17 09:24 Dose: 1 packet Vital Signs - 24 hr 10/07/17 10/07/17 10/07/17 20:30 20:31 23:06 Temperature 100.4 F H 98.3 F Pulse Rate 113 H Respiratory 22 Rate Blood Pressure 118/64 O2 Sat by Pulse 95 Oximetry (%) 10/08/17 10/08/17 10/08/17 02:07 06:00 09:00 Temperature 98.7 F 101.2 F H Pulse Rate 109 H Respiratory 20 Rate Blood Pressure 126/60 O2 Sat by Pulse 99 Oximetry (%) 10/08/17 10/08/17 10:00 14:33 Temperature 97.8 F 98 F Pulse Rate 105 H 96 H Respiratory 20 20 Rate Blood Pressure 100/58 115/56 O2 Sat by Pulse Oximetry (%) Intake & Output 10/06/17 10/07/17 10/08/17 10/09/17 07:59 07:59 07:59 07:59 Intake Total 300 1450 1050 Balance 300 1450 1050 Weight 168 lb 168 lb nad no jvd rrr s1s2 no mrg bibasilar rales, nl eff aaox3 no le e/c/c abd nt nd pos bs no jaundice diaphoresis pos dp pt no carotid bruits no CBC, BMP today 10/07/17 06:00 10/07/17 06:00 echo 09/2017: tds. grossly nl lv fn. impaired relaxation. grossly nl rv size/ fn. mv not well visualized. no pericardial effusion cxr 10/08/17: images, report reviewed. progressive pulmonary changes. cta chest: no pe, no chf ecg: sr, nl intervals, irbbb, no st changes mibi 04/2017: no ecg changes with exercise, nl mpi, lvef 47% a/p: 67 f hx metastatic breast ca on chemo, hld, dm, htn, here with 1 week sob/ teresa. sob: -no signs chf on exam or ct chest. bnp low. -no signs acs -recent mibi with no ischemia -echo unremarkable. - hgb trending down -likely infectious etiology (?pna) given fever and elevated wbc. abx per ID. hld: -cont statin htn: -10/08 bp trending down and remains febrile, will decrease dose of lisinopril from 10 to 5.
[2017-10-08] MEDS: ATORVASTATIN CA 40 MG TABLET (FP) PO SCH (21:32)
[2017-10-09] MEDS: CEFEPIME HCL/D5W 1 GM/50 ML BAG IVPB SCH ×3 (01:20→18:48)
[2017-10-09] MEDS: ACETAMINOPHEN 325 MG TABLET (FP) PO PRN (01:21)
[2017-10-09] MEDS: INSULIN DETEMIR 100 UNITS/ML MDV SQ SCH ×2 (06:35→17:54)
[2017-10-09] MEDS: DOCUSATE SODIUM 100 MG CAPSULE (FP) PO SCH ×3 (06:35→23:20)
[2017-10-09] MEDS: LEVOTHYROXINE NA 50 MCG TABLET (FP) PO SCH (06:36)
[2017-10-09] MEDS: INSULIN SLIDING SCALE (NOVOLOG) 1 VIAL SQ SCH ×4 (06:36→23:22)
[2017-10-09 08:06] LABS: HEMATOCRIT 25.5 % (32.4-45.2); HEMOGLOBIN 8.1 GM/dL (10.7-15.3); MCH 26.7 pg (25.7-33.7); MCHC 31.7 g/dl (32.0-36.0); MEAN CELL VOLUME 84.4 fl (80-96); MEAN PLT VOLUME 8.2 fl (7.5-11.1); PLATELET COUNT 279 K/MM3 (134-434); RBC 3.02 M/mm3 (3.60-5.2); RDW 18.7 % (11.6-15.6)
[2017-10-09 08:28] LABS: ANION GAP 11 (8-16); BLOOD UREA NITROGEN 11 mg/dL (7-18); CALCIUM 7.6 mg/dL (8.5-10.1); CHLORIDE 104 mmol/L (98-107); CO2 25 mmol/L (21-32); CREATININE 0.6 mg/dL (0.55-1.02); GLUCOSE,RANDOM 70 mg/dL (74-106); MAGNESIUM 2.3 mg/dL (1.8-2.4); POTASSIUM 3.7 mmol/L (3.5-5.1); SODIUM 140 mmol/L (136-145)
[2017-10-09] MEDS ORDERED: PT OWN MED DRAWER 7, Y5N ONE ×3 (09:20→20:34)
[2017-10-09] MEDS: FOLIC ACID 1 MG TABLET (FP) PO SCH (09:26)
[2017-10-09] MEDS: FERROUS SO4 325 MG TABLET (FP) PO SCH ×3 (09:26→17:54)
[2017-10-09] MEDS: HEPARIN NA (PORCINE) 5,000 UNITS/ML 1ML VIAL SQ SCH ×2 (09:27→23:21)
[2017-10-09] MEDS: NAPH,MB-DB/K PH,MBDB POWDER PACKET PO SCH ×2 (09:27→23:21)
[2017-10-09] MEDS: LISINOPRIL 10 MG TABLET (FP) PO SCH (09:27)
--- NOTE | 2017-10-09 09:29 | PN ---
Progress Note, Physician Chief Complaint: sob History of Present Illness: sob a little bit better no cp, palpit, leg swelling - Current Medication List Current Medications: Active Medications Acetaminophen (Tylenol -) 650 mg PO Q4H PRN PRN Reason: FEVER Last Admin: 10/09/17 01:21 Dose: 650 mg Atorvastatin Calcium (Lipitor -) 40 mg PO HS [facility] Last Admin: 10/08/17 21:32 Dose: 40 mg Docusate Sodium (Colace -) 100 mg PO TID [facility] Last Admin: 10/09/17 06:35 Dose: 100 mg Ferrous Sulfate (Feosol -) 325 mg PO TIDCM [facility] Last Admin: 10/08/17 16:40 Dose: 325 mg Folic Acid (Folic Acid -) 1 mg PO DAILY [facility] Last Admin: 10/08/17 09:24 Dose: 1 mg Heparin Sodium (Porcine) (Heparin -) 5,000 unit SQ BID [facility] Last Admin: 10/08/17 21:30 Dose: 5,000 unit Cefepime HCl (Maxipime 1 Gm Premix Ivpb) 1 gm in 50 mls @ 100 mls/hr IVPB Q8H- IV [facility] Last Admin: 10/09/17 01:20 Dose: 100 mls/hr Insulin Aspart (Novolog Vial Sliding Scale -) 1 vial SQ ACHS [facility] PRN Reason: Protocol Last Admin: 10/09/17 06:36 Dose: Not Given Insulin Detemir (Levemir Vial) 10 units SQ BIDI [facility] Last Admin: 10/09/17 06:35 Dose: Not Given Levothyroxine Sodium (Synthroid -) 50 mcg PO DAILY@0700 [facility] Last Admin: 10/09/17 06:36 Dose: 50 mcg Lisinopril (Prinivil) 5 mg PO DAILY [facility] Potassium Phos/Sodium Phos (Phos-Nak Packet -) 1 packet PO BID [facility] Last Admin: 10/08/17 21:33 Dose: 1 packet - Objective Vital Signs: Vital Signs Temperature 99.1 F 10/09/17 05:36 Pulse Rate 92 H 10/09/17 05:36 Respiratory Rate 20 10/09/17 05:36 Blood Pressure 120/61 10/09/17 05:36 O2 Sat by Pulse Oximetry (%) 98 10/08/17 21:00 Constitutional: Yes: No Distress, Calm Cardiovascular: Yes: Regular Rate and Rhythm, S1, S2. No: JVD, Gallop, Murmur Respiratory: Yes: Regular, Rales (faint rales lower 1/2 > upper). No: Accessory Muscle Use, Rhonchi, Wheezes Extremities: No: Cold Edema: No Neurological: Yes: Alert. No: Seizure Psychiatric: No: Agitated Labs: CBC, BMP 10/09/17 06:35 10/09/17 06:35 INR, PTT INR 1.12 (0.82-1.09) 10/05/17 17:48 Assessment/Plan ecg: sr, nl intervals, irbbb, no st changes cxr 10/08: images, report reviewed. progressive pulmonary changes bilaterally. also with cephalization pattern likely, ? L effusion CTA chest 10/05: no PE. fibrotic changes/pleural thickening L apex. L base ATX. no congestion, effusions. ? bony met.s Echo 09/2017: tds. grossly nl lv fn. impaired relaxation. grossly nl rv size/ fn. mv not well visualized. no pericardial effusion mibi 04/2017: no ecg changes with exercise, nl mpi, lvef 47% a/p: 67 f hx metastatic breast ca on chemo, hld, dm, htn, here with 1 week sob/ teresa. sob, fevers, acute CXR changes (diffuse), stage 4 breast Ca: -no signs chf on exam or ct chest, bnp <100. -no signs acs -echo unremarkable. -hi WBC with fevers--WBC trending down, fevers continue. Cx's negative, no clear source--on empiric abx per ID -pronounced acute CXR changes 10/08 ? chf vs diffuse pneumonitis, no JVD or edema on exam, no murmurs to suggest acute valvular regurgitation-- rpt bnp, lactate today. lasix iv x 1 today. rpt cxr in am -abx per ID anemia: -hgb trending down -check stool occult blood hld: -cont statin htn: -10/08 bp trending down and remains febrile, will decrease dose of lisinopril from 10 to 5 -bp stable
[2017-10-09 10:41] LABS: ANISOCYTOSIS 1+; MACROCYTOSIS 0; PLATELET ESTIMATE NORMAL
[2017-10-09] MEDS ORDERED: FUROSEMIDE 40 MG/4 ML INJECTABLE VIAL IVPUSH ONE (10:45)
--- NOTE | 2017-10-09 13:59 | PN ---
Progress Note, Physician History of Present Illness: Today complains of profound weakness both at rest and on minimal exertion. Appears slightly tachypneic at rest. Denies cough or sputum production No c/o chest pain No vomiting or diarrhea. No dysuria WBC trending downward CXR shows increased congestion bilaterally - Current Medication List Current Medications: Active Medications Acetaminophen (Tylenol -) 650 mg PO Q4H PRN PRN Reason: FEVER Last Admin: 10/09/17 01:21 Dose: 650 mg Atorvastatin Calcium (Lipitor -) 40 mg PO HS [facility] Last Admin: 10/08/17 21:32 Dose: 40 mg Docusate Sodium (Colace -) 100 mg PO TID [facility] Last Admin: 10/09/17 06:35 Dose: 100 mg Ferrous Sulfate (Feosol -) 325 mg PO TIDCM [facility] Last Admin: 10/09/17 09:26 Dose: 325 mg Folic Acid (Folic Acid -) 1 mg PO DAILY [facility] Last Admin: 10/09/17 09:26 Dose: 1 mg Heparin Sodium (Porcine) (Heparin -) 5,000 unit SQ BID [facility] Last Admin: 10/09/17 09:27 Dose: 5,000 unit Cefepime HCl (Maxipime 1 Gm Premix Ivpb) 1 gm in 50 mls @ 100 mls/hr IVPB Q8H- IV [facility] Last Admin: 10/09/17 09:27 Dose: 100 mls/hr Insulin Aspart (Novolog Vial Sliding Scale -) 1 vial SQ ACHS [facility] PRN Reason: Protocol Last Admin: 10/09/17 06:36 Dose: Not Given Insulin Detemir (Levemir Vial) 10 units SQ BIDI [facility] Last Admin: 10/09/17 06:35 Dose: Not Given Levothyroxine Sodium (Synthroid -) 50 mcg PO DAILY@0700 [facility] Last Admin: 10/09/17 06:36 Dose: 50 mcg Lisinopril (Prinivil) 5 mg PO DAILY [facility] Last Admin: 10/09/17 09:27 Dose: 5 mg Potassium Phos/Sodium Phos (Phos-Nak Packet -) 1 packet PO BID [facility] Last Admin: 10/09/17 09:27 Dose: 1 packet - Objective Vital Signs: Vital Signs Temperature 98.5 F 10/09/17 10:00 Pulse Rate 101 H 10/09/17 10:00 Respiratory Rate 20 10/09/17 10:00 Blood Pressure 124/70 10/09/17 10:00 O2 Sat by Pulse Oximetry (%) 98 10/08/17 21:00 Constitutional: Yes: Mild Distress Cardiovascular: Yes: Regular Rate and Rhythm, S1, S2 Respiratory: Yes: Other (+ bibasilar rales) Gastrointestinal: Yes: Normal Bowel Sounds, Soft, Abdomen, Obese. No: Tenderness Edema: Yes Labs: CBC, BMP 10/09/17 06:35 10/09/17 06:35 INR, PTT INR 1.12 (0.82-1.09) 10/05/17 17:48 Assessment/Plan Sepsis syndrome ? lung source Bilateral pulmonary infiltrates Leukocytosis multifactorial- improving Stage IV breast ca Diabetes mellitus Continue empiric cefepime Add zithromax Urine legionella/ pneumococcal ag
[2017-10-09] MEDS: AZITHROMYCIN IVPB 500 MG in DEXTROSE 5%-WATER - 250 ML IVPB SCH (15:32)
--- NOTE | 2017-10-09 18:14 | PN ---
Progress Note (short form) - Note Progress Note: feeling weaker / dyspneic at rest / " I can't walk to bathroom without losing my breath" feel tighter and more congested today Vital Signs Period Temp Pulse Resp BP Sys/Cortez Pulse Ox Last 24 Hr 97.8 F-100 F 101-115 18-22 121-137/63-77 99-100 neck supple -JVD heart S1/S2 lungs rales /crackles / wheezing diffusely abd soft ext no edema persistent lymphedema left arm CTA - negative for PE CXR increased congestion ?right infiltrate # dyspnea evidence of HF ---given IV lasix per Cardio echo reviewed repeat CXr in am antibiotics per ID anemia # stage 4 Breast CA undergoing chemo -- last treatment approx 1 week ago consider anemia / cardiomyopathy / infections as cause of dyspnea # Diabetes Mellitis Diabetic diet / sliding scale last HgA1c 9.9 had been on steroids during chemo # anemia declines blood transfusion Fe / folic acid / mvi Problem List - Problems (1) Shortness of breath Code(s): R06.02 - SHORTNESS OF BREATH (2) Cardiomyopathy due to chemotherapy Code(s): I42.7 - CARDIOMYOPATHY DUE TO DRUG AND EXTERNAL AGENT; T45.1X5A - ADVERSE EFFECT OF ANTINEOPLASTIC AND IMMUNOSUP DRUGS, INIT (3) Cancer of left breast, stage 4 Code(s): C50.912 - MALIGNANT NEOPLASM OF UNSPECIFIED SITE OF LEFT FEMALE BREAST (4) Diabetes Code(s): E11.9 - TYPE 2 DIABETES MELLITUS WITHOUT COMPLICATIONS
[2017-10-09] MEDS: ALBUTEROL SO4 2.5/IPRATROPIUM 0.5 INH SOL 3 ML VIAL.NEB. NEB SCH (22:40)
[2017-10-09] MEDS: ATORVASTATIN CA 40 MG TABLET (FP) PO SCH (23:20)
[2017-10-10] MEDS ORDERED: PT OWN MED DRAWER 7, Y5N ONE ×2 (01:56→09:22)
[2017-10-10] MEDS: ALBUTEROL SO4 2.5/IPRATROPIUM 0.5 INH SOL 3 ML VIAL.NEB. NEB SCH ×4 (02:08→21:15)
[2017-10-10] MEDS: CEFEPIME HCL/D5W 1 GM/50 ML BAG IVPB SCH ×3 (02:12→17:27)
[2017-10-10] MEDS: LEVOTHYROXINE NA 50 MCG TABLET (FP) PO SCH (06:20)
[2017-10-10] MEDS: INSULIN SLIDING SCALE (NOVOLOG) 1 VIAL SQ SCH ×4 (06:21→22:47)
[2017-10-10] MEDS: INSULIN DETEMIR 100 UNITS/ML MDV SQ SCH ×2 (06:21→17:29)
[2017-10-10] MEDS: DOCUSATE SODIUM 100 MG CAPSULE (FP) PO SCH ×3 (06:26→22:47)
[2017-10-10] MEDS: ALBUTEROL SO4 2.5/IPRATROPIUM 0.5 INH SOL 3 ML VIAL.NEB. NEB PRN (07:45)
[2017-10-10] MEDS: FERROUS SO4 325 MG TABLET (FP) PO SCH ×3 (09:26→17:27)
[2017-10-10] MEDS: HEPARIN NA (PORCINE) 5,000 UNITS/ML 1ML VIAL SQ SCH ×2 (09:26→22:48)
[2017-10-10] MEDS: FOLIC ACID 1 MG TABLET (FP) PO SCH (09:26)
[2017-10-10] MEDS: LISINOPRIL 10 MG TABLET (FP) PO SCH ×2 (09:26→09:37)
[2017-10-10] MEDS: NAPH,MB-DB/K PH,MBDB POWDER PACKET PO SCH ×2 (09:27→22:48)
[2017-10-10] MEDS ORDERED: ALBUTEROL SO4 2.5/IPRATROPIUM 0.5 INH SOL 3 ML VIAL.NEB. NEB PRN (10:56)
--- NOTE | 2017-10-10 11:05 | PN ---
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 request pulmonary opinion nebulizer / inhaled steroids antibiotics per ID anemia # stage 4 Breast CA undergoing chemo -- last treatment approx 1 week ago consider anemia / cardiomyopathy / infections as cause of dyspnea # Diabetes Mellitis Diabetic diet / sliding scale last HgA1c 9.9 had been on steroids during chemo # anemia declines blood transfusion Fe / folic acid / mvi labs as needed # depression discussed with niece can't sleep / overall poor outlook on plans Problem List - Problems (1) Shortness of breath Code(s): R06.02 - SHORTNESS OF BREATH (2) Cardiomyopathy due to chemotherapy Code(s): I42.7 - CARDIOMYOPATHY DUE TO DRUG AND EXTERNAL AGENT; T45.1X5A - ADVERSE EFFECT OF ANTINEOPLASTIC AND IMMUNOSUP DRUGS, INIT (3) Cancer of left breast, stage 4 Code(s): C50.912 - MALIGNANT NEOPLASM OF UNSPECIFIED SITE OF LEFT FEMALE BREAST (4) Diabetes Code(s): E11.9 - TYPE 2 DIABETES MELLITUS WITHOUT COMPLICATIONS
[2017-10-10] MEDS ORDERED: INSULIN (NOVOLOG) ASPART 100 UNITS/ML 10ML VIAL ONE ×3 (11:50→22:29)
[2017-10-10] MEDS: PANTOPRAZOLE 40 MG TABLET (FP) PO SCH (11:52)
--- NOTE | 2017-10-10 11:54 | PN ---
Progress Note, Physician History of Present Illness: Reports less dyspnea. Still weak. Slightly tachypneic at rest. Denies cough or sputum production No c/o chest pain No vomiting or diarrhea. No dysuria WBC trending downward CXR shows increased congestion bilaterally - Current Medication List Current Medications: Active Medications Acetaminophen (Tylenol -) 650 mg PO Q4H PRN PRN Reason: FEVER Last Admin: 10/09/17 01:21 Dose: 650 mg Albuterol/Ipratropium (Duoneb -) 1 amp NEB Q4H PRN PRN Reason: SHORT OF BREATH/WHEEZING Last Admin: 10/10/17 07:45 Dose: 1 amp Albuterol/Ipratropium (Duoneb -) 1 amp NEB RQID [facility] Albuterol/Ipratropium (Duoneb -) 1 amp NEB Q4H PRN PRN Reason: SHORTNESS OF BREATH Atorvastatin Calcium (Lipitor -) 40 mg PO HS [facility] Last Admin: 10/09/17 23:20 Dose: 40 mg Budesonide (Pulmicort 0.5 Mg Nebulizer -) 1 amp NEB RBID [facility] Docusate Sodium (Colace -) 100 mg PO TID [facility] Last Admin: 10/10/17 06:26 Dose: Not Given Ferrous Sulfate (Feosol -) 325 mg PO TIDCM [facility] Last Admin: 10/10/17 09:26 Dose: 325 mg Folic Acid (Folic Acid -) 1 mg PO DAILY [facility] Last Admin: 10/10/17 09:26 Dose: 1 mg Heparin Sodium (Porcine) (Heparin -) 5,000 unit SQ BID [facility] Last Admin: 10/10/17 09:26 Dose: 5,000 unit Cefepime HCl (Maxipime 1 Gm Premix Ivpb) 1 gm in 50 mls @ 100 mls/hr IVPB Q8H- IV [facility] Last Admin: 10/10/17 09:27 Dose: 100 mls/hr Azithromycin 500 mg/ Dextrose 250 mls @ 250 mls/hr IVPB DAILY [facility] Last Admin: 10/09/17 15:32 Dose: 250 mls/hr Insulin Aspart (Novolog Vial Sliding Scale -) 1 vial SQ ACHS [facility] PRN Reason: Protocol Last Admin: 10/10/17 06:21 Dose: Not Given Insulin Detemir (Levemir Vial) 10 units SQ BIDI [facility] Last Admin: 10/10/17 06:21 Dose: 10 units Levothyroxine Sodium (Synthroid -) 50 mcg PO DAILY@0700 [facility] Last Admin: 10/10/17 06:20 Dose: 50 mcg Lisinopril (Prinivil) 5 mg PO DAILY [facility] Last Admin: 10/10/17 09:37 Dose: Not Given Mirtazapine (Remeron -) 15 mg PO HS [facility] Pantoprazole Sodium (Protonix -) 40 mg PO DAILY [facility] Potassium Phos/Sodium Phos (Phos-Nak Packet -) 1 packet PO BID [facility] Last Admin: 10/10/17 09:27 Dose: 1 packet - Objective Vital Signs: Vital Signs Temperature 98.4 F 10/10/17 09:14 Pulse Rate 115 H 10/10/17 09:14 Respiratory Rate 20 10/10/17 09:14 Blood Pressure 102/57 10/10/17 09:14 O2 Sat by Pulse Oximetry (%) 98 10/09/17 21:00 Constitutional: Yes: Mild Distress, Other Eyes: Yes: Conjunctiva Clear HENT: Yes: Other (Alopecia) Cardiovascular: Yes: Regular Rate and Rhythm, S1, S2 Respiratory: No: Other (+ crepitations at bases bilaterally) Gastrointestinal: Yes: Normal Bowel Sounds. No: Tenderness Extremities: Yes: Other (L UE lymphedema) Edema: Yes Labs: CBC, BMP 10/09/17 06:35 10/09/17 06:35 INR, PTT INR 1.12 (0.82-1.09) 10/05/17 17:48 Assessment/Plan Bilateral pulmonary infiltrates Leukocytosis multifactorial- improving Stage IV breast ca Diabetes mellitus Continue empiric cefepime /zithromax Urine legionella/ pneumococcal ag
[2017-10-10] MEDS: AZITHROMYCIN IVPB 500 MG in DEXTROSE 5%-WATER - 250 ML IVPB SCH (12:24)
--- NOTE | 2017-10-10 13:42 | PN ---
Progress Note (short form) - Note Progress Note: Chief Complaint: sob History of Present Illness: s/p lasix 40 mg IV x 1 yesterday --> sob a little bit better. CXR improved. no cp, palpit, leg swelling. + fatigue bp trending down a little bit, lisinopril held this morning Current Medications Acetaminophen (Tylenol -) 650 mg PO Q4H PRN PRN Reason: FEVER Last Admin: 10/09/17 01:21 Dose: 650 mg Albuterol/Ipratropium (Duoneb -) 1 amp NEB Q4H PRN PRN Reason: SHORT OF BREATH/WHEEZING Last Admin: 10/10/17 07:45 Dose: 1 amp Albuterol/Ipratropium (Duoneb -) 1 amp NEB RQID [facility] Last Admin: 10/10/17 11:45 Dose: 1 amp Albuterol/Ipratropium (Duoneb -) 1 amp NEB Q4H PRN PRN Reason: SHORTNESS OF BREATH Atorvastatin Calcium (Lipitor -) 40 mg PO HS [facility] Last Admin: 10/09/17 23:20 Dose: 40 mg Budesonide (Pulmicort 0.5 Mg Nebulizer -) 1 amp NEB RBID [facility] Docusate Sodium (Colace -) 100 mg PO TID [facility] Last Admin: 10/10/17 06:26 Dose: Not Given Ferrous Sulfate (Feosol -) 325 mg PO TIDCM [facility] Last Admin: 10/10/17 11:52 Dose: 325 mg Folic Acid (Folic Acid -) 1 mg PO DAILY [facility] Last Admin: 10/10/17 09:26 Dose: 1 mg Heparin Sodium (Porcine) (Heparin -) 5,000 unit SQ BID [facility] Last Admin: 10/10/17 09:26 Dose: 5,000 unit Cefepime HCl (Maxipime 1 Gm Premix Ivpb) 1 gm in 50 mls @ 100 mls/hr IVPB Q8H- IV [facility] Last Admin: 10/10/17 09:27 Dose: 100 mls/hr Azithromycin 500 mg/ Dextrose 250 mls @ 250 mls/hr IVPB DAILY [facility] Last Admin: 10/10/17 12:24 Dose: 250 mls/hr Insulin Aspart (Novolog Vial Sliding Scale -) 1 vial SQ ACHS [facility] PRN Reason: Protocol Last Admin: 10/10/17 11:56 Dose: 4 units Insulin Detemir (Levemir Vial) 10 units SQ BIDI [facility] Last Admin: 10/10/17 06:21 Dose: 10 units Levothyroxine Sodium (Synthroid -) 50 mcg PO DAILY@0700 [facility] Last Admin: 10/10/17 06:20 Dose: 50 mcg Lisinopril (Prinivil) 5 mg PO DAILY [facility] Last Admin: 10/10/17 09:37 Dose: Not Given Mirtazapine (Remeron -) 15 mg PO [facility] Pantoprazole Sodium (Protonix -) 40 mg PO DAILY [facility] Last Admin: 10/10/17 11:52 Dose: 40 mg Potassium Phos/Sodium Phos (Phos-Nak Packet -) 1 packet PO BID [facility] Last Admin: 10/10/17 09:27 Dose: 1 packet - Objective Vital Signs: Vital Signs - 24 hr 10/09/17 10/09/17 10/09/17 14:15 18:00 21:00 Temperature 99.0 F 98.4 F Pulse Rate 112 H 96 H Respiratory 20 20 Rate Blood Pressure 122/80 128/70 O2 Sat by Pulse 98 Oximetry (%) 10/09/17 10/10/17 10/10/17 23:31 02:00 06:00 Temperature 98.5 F 99.5 F 99.5 F Pulse Rate 112 H 101 H 96 H Respiratory 22 20 20 Rate Blood Pressure 113/52 118/59 104/54 O2 Sat by Pulse Oximetry (%) 10/10/17 10/10/17 09:00 09:14 Temperature 98.4 F Pulse Rate 115 H Respiratory 20 Rate Blood Pressure 102/57 O2 Sat by Pulse 95 Oximetry (%) nad no jvd rrr s1s2 no mrg bibasilar rales, nl eff aaox3 no le e/c/c abd nt nd pos bs no jaundice diaphoresis pos dp pt no carotid bruits Labs: no CBC, BMP today Laboratory Tests 10/09/17 10/09/17 06:35 10:10 Sodium 140 Potassium 3.7 Carbon Dioxide 25 BUN 11 Creatinine 0.6 Magnesium 2.3 B-Natriuretic Peptide 89.91 Assessment/Plan ecg: sr, nl intervals, irbbb, no st changes cxr 10/08: images, report reviewed. progressive pulmonary changes bilaterally. also with cephalization pattern likely, ? L effusion CTA chest 1/25: no PE. fibrotic changes/pleural thickening L apex. L base ATX. no congestion, effusions. ? bony met.s Echo 09/2017: tds. grossly nl lv fn. impaired relaxation. grossly nl rv size/ fn. mv not well visualized. no pericardial effusion mibi 04/2017: no ecg changes with exercise, nl mpi, lvef 47% a/p: 67 f hx metastatic breast ca on chemo, hld, dm, htn, here with 1 week sob/ teresa. sob, fevers, acute CXR changes (diffuse), stage 4 breast Ca: -no signs chf on exam or ct chest, bnp <100. -no signs acs -echo unremarkable. -hi WBC with fevers--WBC trending down, fevers continue. Cx's negative, no clear source--on empiric abx per ID -pronounced acute CXR changes 10/08 ? chf vs diffuse pneumonitis, no JVD or edema on exam, no murmurs to suggest acute valvular regurgitation-- rpt bnp wnl , lasix iv x 08/09. rpt cxr in am - 10/10: cxr improved s/p IV lasix yesterday. sob also somewhat better. Will repeat bmp again tomorrow. Need weights. Reassess need for further lasix tomorrow. -abx per ID anemia: -hgb trending down -consider checking stool occult blood hld: -cont statin htn: -10/08 bp trending down and remains febrile, decreased dose of lisinopril from 10 to 5 - 10/10 bp still trending down, lisinopril held this morning. Will d/c for now.
--- NOTE | 2017-10-10 16:10 | CON.PULM ---
Consult Consult Specialty:: PULM/CCM Referred by:: WHITNEY Reason for Consultation:: SOB - History of Present Illness Chief Complaint: SOB History of Present Illness: 67 F, stage 4 breast CA (last Chemotherapy was / previous left RT), HTN , HLD, and DM. Admitted via the ER due to progressive SOB and BRICEÑO. She denies chest pain. She does have a dry cough. There is no significant sputum production or hemoptysis. No apparent travel history or sick contacts. She denies any fevers, chills, nausea, and vomiting. Symptoms are also notable for significant malaise and fatigue. She has been unable to get out of bed due to SOB and fatigue. CT SCAN: CANDELARIO fibrotic changes consistent with radiation pneumonitis. The lung parenchyma has a diffuse hazy appearance possibly related to pulmonary vascular congestion. Left lung is hypoplastic in appearance. Basilar atelectasis/ infiltrate. - History Source History Provided By: Patient Limitations to Obtaining History: No Limitations - Past Medical History Cardio/Vascular: Yes: HTN, Hyperlipdemia Gastrointestinal: Yes: GERD ...: No Endocrine: Yes: Diabetes Mellitus - Past Surgical History Past Surgical History: Yes: Mastectomy - Alcohol/Substance Use Hx Alcohol Use: No History of Substance Use: reports: None - Smoking History Smoking history: Never smoked Have you smoked in the past 12 months: No If you are a former smoker, when did you quit?: 30YRS - Social History ADL: Independent Home Medications - Allergies Allergies/Adverse Reactions: Allergies Allergy/AdvReac Type Severity Reaction Status Date / Time No Known Allergies Allergy Verified 10/05/17 17:10 - Home Medications Home Medications: Ambulatory Orders Ergocalciferol [Vitamin D2] 50,000 unit PO SA 10/05/17 Insulin Glargine,Hum.rec.anlog [Touteoo Solostar] 10 unit SQ AM 10/05/17 Levothyroxine [Synthroid -] 50 mcg PO DAILY 10/05/17 Lisinopril 10 mg PO DAILY 10/05/17 Metformin HCl [Glucophage] 1,000 mg PO BID 10/05/17 Simvastatin [Zocor -] 40 mg PO HS 10/05/17 Review of Systems - Review of Systems Constitutional: reports: Lethargy, Malaise, Weakness. denies: Chills, Fever, Night Sweats Eyes: reports: No Symptoms HENT: reports: No Symptoms Neck: reports: No Symptoms Cardiovascular: reports: Edema, Shortness of Breath. denies: Chest Pain, Palpitations Respiratory: reports: Cough, Snoring, SOB, SOB on Exertion. denies: Hemoptysis , Wheezing Gastrointestinal: reports: No Symptoms Genitourinary: reports: No Symptoms Breasts: reports: No Symptoms Reported Musculoskeletal: reports: No Symptoms Integumentary: reports: No Symptoms Neurological: reports: No Symptoms Endocrine: reports: No Symptoms Hematology/Lymphatic: reports: No Symptoms Psychiatric: reports: No Symptoms Physical Exam Vital Sings: Vital Signs Temperature 97.9 F 10/10/17 13:55 Pulse Rate 119 H 10/10/17 13:55 Respiratory Rate 20 10/10/17 13:55 Blood Pressure 102/58 10/10/17 13:55 O2 Sat by Pulse Oximetry (%) 95 10/10/17 09:00 Constitutional: Yes: No Distress, Calm, Obese Eyes: Yes: Conjunctiva Clear, EOM Intact HENT: Yes: Atraumatic, Normocephalic Neck: Yes: Thyromegaly Cardiovascular: Yes: Regular Rate and Rhythm Respiratory: Yes: Cough, Diminished, On Nasal O2, Rhonchi, SOB, Wheezes. No: Accessory Muscle Use, Rales, Stridor, Tachypnea ...Inspection: Yes: Other (post surgical ). No: Use of Accessory Muscles Gastrointestinal: Yes: WNL, Normal Bowel Sounds, Soft, Abdomen, Obese Renal/: Yes: WNL Breast(s): Yes: Breast Implants, Skin Changes Musculoskeletal: Yes: WNL Extremities: Yes: WNL Edema: Yes Peripheral Pulses WNL: Yes Integumentary: Yes: WNL Neurological: Yes: WNL, Alert, Oriented ...Motor Strength: WNL Psychiatric: Yes: WNL, Alert, Oriented Labs: CBC, BMP 10/09/17 06:35 10/09/17 06:35 Imaging - Results Chest X-ray: Report Reviewed, Image Reviewed Cat Scan: Report Reviewed, Image Reviewed Problem List - Problems (1) Radiation pneumonitis Code(s): J70.0 - ACUTE PULMONARY MANIFESTATIONS DUE TO RADIATION (2) Cancer of left breast, stage 4 Code(s): C50.912 - MALIGNANT NEOPLASM OF UNSPECIFIED SITE OF LEFT FEMALE BREAST (3) Cardiomyopathy due to chemotherapy Code(s): I42.7 - CARDIOMYOPATHY DUE TO DRUG AND EXTERNAL AGENT; T45.1X5A - ADVERSE EFFECT OF ANTINEOPLASTIC AND IMMUNOSUP DRUGS, INIT (4) Diabetes Code(s): E11.9 - TYPE 2 DIABETES MELLITUS WITHOUT COMPLICATIONS (5) Shortness of breath Code(s): R06.02 - SHORTNESS OF BREATH Assessment/Plan PLAN: Agree with ABX per ID O2 as needed to maintain saturation BD TX appears to have offered some relief of symptoms so would continue. VTE prophylaxis CXR from 10/08 to today seems to have mildly improved despite differences in technique/exposure. Would assess daily for need for Lasix Do not feel systemic steroids would be beneficial in this setting so will hold for now. Check TFTs in the AM. Will follow closely. Thank you. Dr Plascencia
[2017-10-10] MEDS: MULTIVITAMINS (DAILY MVI) TABLET (FP) PO SCH (18:21)
[2017-10-10] MEDS: BUDESONIDE 0.5 MG/2 ML INH SUSP VIAL NEB SCH (21:15)
[2017-10-10] MEDS: MIRTAZAPINE 15 MG TABLET (FP) PO SCH (22:47)
[2017-10-10] MEDS: ATORVASTATIN CA 40 MG TABLET (FP) PO SCH (22:48)
[2017-10-10] MEDS: ACETAMINOPHEN 325 MG TABLET (FP) PO PRN (22:59)
[2017-10-11] MEDS ORDERED: PT OWN MED DRAWER 7, Y5N ONE ×2 (01:17→09:03)
[2017-10-11] MEDS: CEFEPIME HCL/D5W 1 GM/50 ML BAG IVPB SCH ×2 (01:41→09:04)
[2017-10-11] MEDS: LEVOTHYROXINE NA 50 MCG TABLET (FP) PO SCH (06:31)
[2017-10-11] MEDS: DOCUSATE SODIUM 100 MG CAPSULE (FP) PO SCH ×3 (06:32→21:04)
[2017-10-11] MEDS: INSULIN SLIDING SCALE (NOVOLOG) 1 VIAL SQ SCH ×4 (06:32→21:09)
[2017-10-11] MEDS: INSULIN DETEMIR 100 UNITS/ML MDV SQ SCH ×2 (06:34→17:02)
[2017-10-11] MEDS: ALBUTEROL SO4 2.5/IPRATROPIUM 0.5 INH SOL 3 ML VIAL.NEB. NEB SCH ×4 (07:25→21:08)
[2017-10-11 07:30] LABS: HEMATOCRIT 24.8 % (32.4-45.2); MCHC 32.3 g/dl (32.0-36.0); MEAN CELL VOLUME 83.8 fl (80-96); MEAN PLT VOLUME 7.3 fl (7.5-11.1); PLATELET COUNT 398 K/MM3 (134-434); RBC 2.96 M/mm3 (3.60-5.2); RDW 18.8 % (11.6-15.6); WHITE BLOOD COUNT 11.3 K/mm3 (4.0-10.0)
[2017-10-11] MEDS: BUDESONIDE 0.5 MG/2 ML INH SUSP VIAL NEB SCH ×2 (07:30→21:08)
[2017-10-11 08:08] LABS: CHLORIDE 102 mmol/L (98-107); POTASSIUM 4.2 mmol/L (3.5-5.1); SODIUM 138 mmol/L (136-145)
[2017-10-11 08:15] LABS: ALBUMIN 1.9 g/dl (3.4-5.0); ALK PHOS 96 U/L (45-117); ANION GAP 8 (8-16); BILIRUBIN,TOTAL 0.4 mg/dL (0.2-1.0); BLOOD UREA NITROGEN 9 mg/dL (7-18); CALCIUM 7.6 mg/dL (8.5-10.1); CO2 28 mmol/L (21-32); CREATININE 0.7 mg/dL (0.55-1.02); GLUCOSE,RANDOM 128 mg/dL (74-106); SGOT/AST 28 U/L (15-37); SGPT/ALT 23 U/L (12-78); TOT PROT 5.6 g/dl (6.4-8.2)
[2017-10-11] MEDS: FERROUS SO4 325 MG TABLET (FP) PO SCH ×3 (08:21→17:02)
[2017-10-11] MEDS: HEPARIN NA (PORCINE) 5,000 UNITS/ML 1ML VIAL SQ SCH ×2 (09:04→21:05)
[2017-10-11] MEDS: FOLIC ACID 1 MG TABLET (FP) PO SCH (09:04)
[2017-10-11] MEDS: MULTIVITAMINS (DAILY MVI) TABLET (FP) PO SCH (09:04)
[2017-10-11] MEDS: PANTOPRAZOLE 40 MG TABLET (FP) PO SCH (09:04)
[2017-10-11] MEDS: NAPH,MB-DB/K PH,MBDB POWDER PACKET PO SCH ×2 (09:04→21:07)
[2017-10-11] MEDS: AZITHROMYCIN IVPB 500 MG in DEXTROSE 5%-WATER - 250 ML IVPB SCH (09:04)
[2017-10-11 10:38] LABS: ANISOCYTOSIS 1+; OVALOCYTE 1+; PLATELET ESTIMATE NORMAL; TARGET CELLS 1+; TEAR DROP CELLS 1+
--- NOTE | 2017-10-11 11:17 | PN ---
Progress Note (short form) - Note Progress Note: still "short of breath" BRICEÑO having chills ?-- no fever increased fatigue Vital Signs Period Temp Pulse Resp BP Sys/Cortez Pulse Ox Last 24 Hr 97.9 F-99.9 F 95-130 20-22 102-137/58-69 97 neck supple -JVD heart S1/S2 lungs /crackles / occasional wheezing / decreased at left base abd soft ext no edema persistent lymphedema left arm CBC, BMP 10/11/17 06:00 10/11/17 06:00 albumin 1.9 TSH 2.9 CTA - negative for PE CXR no HF Microbiology 10/10/17 13:40 Urine For Antigen Detection Legionella Antigen - Final 10/10/17 13:40 Urine For Antigen Detection Streptococcus pneumoniae Antigen (M - Final 10/05/17 21:45 Blood - Peripheral Venous Blood Culture - Final NO GROWTH AFTER 5 DAYS INCUBATION 10/05/17 21:15 Blood - Peripheral Venous Blood Culture - Final NO GROWTH AFTER 5 DAYS INCUBATION 10/06/17 13:10 Urine - Urine Clean Catch Urine Culture - Final NO GROWTH OBTAINED 10/06/17 11:00 Nasopharyngeal Swab Influenza Types A,B Antigen (LUIS M) - Final 10/06/17 11:00 Nasopharyngeal Swab - Final Active Medications Acetaminophen (Tylenol -) 650 mg PO Q4H PRN PRN Reason: FEVER Last Admin: 10/10/17 22:59 Dose: 650 mg Albuterol/Ipratropium (Duoneb -) 1 amp NEB Q4H PRN PRN Reason: SHORT OF BREATH/WHEEZING Last Admin: 10/10/17 07:45 Dose: 1 amp Albuterol/Ipratropium (Duoneb -) 1 amp NEB RQID [facility] Last Admin: 10/11/17 07:25 Dose: 1 amp Albuterol/Ipratropium (Duoneb -) 1 amp NEB Q4H PRN PRN Reason: SHORTNESS OF BREATH Atorvastatin Calcium (Lipitor -) 40 mg PO HS [facility] Last Admin: 10/10/17 22:48 Dose: 40 mg Budesonide (Pulmicort 0.5 Mg Nebulizer -) 1 amp NEB RBID [facility] Last Admin: 10/11/17 07:30 Dose: 1 amp Docusate Sodium (Colace -) 100 mg PO TID [facility] Last Admin: 10/11/17 06:32 Dose: 100 mg Ferrous Sulfate (Feosol -) 325 mg PO TIDCM [facility] Last Admin: 10/11/17 08:21 Dose: 325 mg Folic Acid (Folic Acid -) 1 mg PO DAILY [facility] Last Admin: 10/11/17 09:04 Dose: 1 mg Heparin Sodium (Porcine) (Heparin -) 5,000 unit SQ BID [facility] Last Admin: 10/11/17 09:04 Dose: 5,000 unit Cefepime HCl (Maxipime 1 Gm Premix Ivpb) 1 gm in 50 mls @ 100 mls/hr IVPB Q8H- IV [facility] Last Admin: 10/11/17 09:04 Dose: 100 mls/hr Azithromycin 500 mg/ Dextrose 250 mls @ 250 mls/hr IVPB DAILY [facility] Last Admin: 10/11/17 09:04 Dose: 250 mls/hr Insulin Aspart (Novolog Vial Sliding Scale -) 1 vial SQ ACHS [facility] PRN Reason: Protocol Last Admin: 10/11/17 10:57 Dose: Not Given Insulin Detemir (Levemir Vial) 10 units SQ BIDI [facility] Last Admin: 10/11/17 06:34 Dose: 10 units Levothyroxine Sodium (Synthroid -) 50 mcg PO DAILY@0700 [facility] Last Admin: 10/11/17 06:31 Dose: 50 mcg Mirtazapine (Remeron -) 15 mg PO HS [facility] Last Admin: 10/10/17 22:47 Dose: 15 mg Multivitamins/Minerals/Vitamin C (Tab-A-Vit -) 1 tab PO DAILY [facility] Last Admin: 10/11/17 09:04 Dose: 1 tab Pantoprazole Sodium (Protonix -) 40 mg PO DAILY [facility] Last Admin: 10/11/17 09:04 Dose: 40 mg Potassium Phos/Sodium Phos (Phos-Nak Packet -) 1 packet PO BID [facility] Last Admin: 10/11/17 09:04 Dose: 1 packet # dyspnea echo reviewed repeat CXR reviewed 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 case discussed with pulmonary nebulizer / inhaled steroids with minimal improvement will start Iv steroids antibiotics per ID anemia # stage 4 Breast CA undergoing chemo -- last treatment approx 1 week ago consider anemia / cardiomyopathy / infections as cause of dyspnea request Oncology opinion consider Procrit -- as patient declines blood transfusion, ( "even if it cost me my life") # Diabetes Mellitis Diabetic diet / sliding scale last HgA1c 9.9 had been on steroids during chemo # anemia declines blood transfusion Fe / folic acid / mvi labs as needed # malnutrition Poor appetite low albumin # hypothyroid continue meds # depression discussed with niece can't sleep / overall poor outlook on plans Problem List - Problems (1) Shortness of breath Code(s): R06.02 - SHORTNESS OF BREATH (2) Cardiomyopathy due to chemotherapy Code(s): I42.7 - CARDIOMYOPATHY DUE TO DRUG AND EXTERNAL AGENT; T45.1X5A - ADVERSE EFFECT OF ANTINEOPLASTIC AND IMMUNOSUP DRUGS, INIT (3) Cancer of left breast, stage 4 Code(s): C50.912 - MALIGNANT NEOPLASM OF UNSPECIFIED SITE OF LEFT FEMALE BREAST (4) Diabetes Code(s): E11.9 - TYPE 2 DIABETES MELLITUS WITHOUT COMPLICATIONS
--- NOTE | 2017-10-11 11:26 | PN ---
Progress Note, Physician History of Present Illness: Became dyspneic after ambulating to bathroom No c/o chest pain + dry cough Afebrile WBC improved - Current Medication List Current Medications: Active Medications Acetaminophen (Tylenol -) 650 mg PO Q4H PRN PRN Reason: FEVER Last Admin: 10/10/17 22:59 Dose: 650 mg Albuterol/Ipratropium (Duoneb -) 1 amp NEB Q4H PRN PRN Reason: SHORT OF BREATH/WHEEZING Last Admin: 10/10/17 07:45 Dose: 1 amp Albuterol/Ipratropium (Duoneb -) 1 amp NEB RQID [facility] Last Admin: 10/11/17 07:25 Dose: 1 amp Albuterol/Ipratropium (Duoneb -) 1 amp NEB Q4H PRN PRN Reason: SHORTNESS OF BREATH Amino Acids (Prosource No Carb Liquid Pkt) 30 ml PO BID@0800,1730 [facility] Atorvastatin Calcium (Lipitor -) 40 mg PO HS [facility] Last Admin: 10/10/17 22:48 Dose: 40 mg Budesonide (Pulmicort 0.5 Mg Nebulizer -) 1 amp NEB RBID [facility] Last Admin: 10/11/17 07:30 Dose: 1 amp Docusate Sodium (Colace -) 100 mg PO TID [facility] Last Admin: 10/11/17 06:32 Dose: 100 mg Ferrous Sulfate (Feosol -) 325 mg PO TIDCM [facility] Last Admin: 10/11/17 08:21 Dose: 325 mg Folic Acid (Folic Acid -) 1 mg PO DAILY [facility] Last Admin: 10/11/17 09:04 Dose: 1 mg Heparin Sodium (Porcine) (Heparin -) 5,000 unit SQ BID [facility] Last Admin: 10/11/17 09:04 Dose: 5,000 unit Cefepime HCl (Maxipime 1 Gm Premix Ivpb) 1 gm in 50 mls @ 100 mls/hr IVPB Q8H- IV [facility] Last Admin: 10/11/17 09:04 Dose: 100 mls/hr Azithromycin 500 mg/ Dextrose 250 mls @ 250 mls/hr IVPB DAILY [facility] Last Admin: 10/11/17 09:04 Dose: 250 mls/hr Insulin Aspart (Novolog Vial Sliding Scale -) 1 vial SQ ACHS [facility] PRN Reason: Protocol Last Admin: 10/11/17 10:57 Dose: Not Given Insulin Detemir (Levemir Vial) 10 units SQ BIDI [facility] Last Admin: 10/11/17 06:34 Dose: 10 units Levothyroxine Sodium (Synthroid -) 50 mcg PO DAILY@0700 [facility] Last Admin: 10/11/17 06:31 Dose: 50 mcg Methylprednisolone Sodium Succinate (Solu-Medrol -) 80 mg IVPUSH Q8H-IV [facility] Mirtazapine (Remeron -) 15 mg PO HS [facility] Last Admin: 10/10/17 22:47 Dose: 15 mg Multivitamins/Minerals/Vitamin C (Tab-A-Vit -) 1 tab PO DAILY [facility] Last Admin: 10/11/17 09:04 Dose: 1 tab Pantoprazole Sodium (Protonix -) 40 mg PO DAILY [facility] Last Admin: 10/11/17 09:04 Dose: 40 mg Potassium Phos/Sodium Phos (Phos-Nak Packet -) 1 packet PO BID [facility] Last Admin: 10/11/17 09:04 Dose: 1 packet - Objective Vital Signs: Vital Signs Temperature 98.9 F 10/11/17 06:00 Pulse Rate 95 H 10/11/17 06:00 Respiratory Rate 20 10/11/17 06:00 Blood Pressure 137/62 10/11/17 06:00 O2 Sat by Pulse Oximetry (%) 97 10/10/17 21:00 Constitutional: Yes: No Distress Cardiovascular: Yes: Regular Rate and Rhythm, S1, S2 Respiratory: Yes: Other (crepitations bilaterally) Gastrointestinal: Yes: Normal Bowel Sounds, Soft, Abdomen, Obese, Tenderness Labs: CBC, BMP 10/11/17 06:00 10/11/17 06:00 INR, PTT INR 1.12 (0.82-1.09) 10/05/17 17:48 Assessment/Plan Pneumonia v. radiation pneumonitis Leukocytosis multifactorial- improving Stage IV breast ca Diabetes mellitus Day #7 antibiotics D/C, observe off
[2017-10-11] MEDS: ACETAMINOPHEN 325 MG TABLET (FP) PO PRN (12:49)
--- NOTE | 2017-10-11 12:53 | PN ---
Progress Note, Physician Chief Complaint: SHAKING CHILLS History of Present Illness: CHART REVIEWED,COMPLETED 7 DAYS IV ABS, NOW FEBRILE WITH SHAKING CHILLS. - Current Medication List Current Medications: Active Medications Acetaminophen (Tylenol -) 650 mg PO Q4H PRN PRN Reason: FEVER Last Admin: 10/10/17 22:59 Dose: 650 mg Albuterol/Ipratropium (Duoneb -) 1 amp NEB Q4H PRN PRN Reason: SHORT OF BREATH/WHEEZING Last Admin: 10/10/17 07:45 Dose: 1 amp Albuterol/Ipratropium (Duoneb -) 1 amp NEB RQID [facility] Last Admin: 10/11/17 07:25 Dose: 1 amp Albuterol/Ipratropium (Duoneb -) 1 amp NEB Q4H PRN PRN Reason: SHORTNESS OF BREATH Amino Acids (Prosource No Carb Liquid Pkt) 30 ml PO BID@0800,1730 [facility] Atorvastatin Calcium (Lipitor -) 40 mg PO HS [facility] Last Admin: 10/10/17 22:48 Dose: 40 mg Budesonide (Pulmicort 0.5 Mg Nebulizer -) 1 amp NEB RBID [facility] Last Admin: 10/11/17 07:30 Dose: 1 amp Docusate Sodium (Colace -) 100 mg PO TID [facility] Last Admin: 10/11/17 06:32 Dose: 100 mg Ferrous Sulfate (Feosol -) 325 mg PO TIDCM [facility] Last Admin: 10/11/17 08:21 Dose: 325 mg Folic Acid (Folic Acid -) 1 mg PO DAILY [facility] Last Admin: 10/11/17 09:04 Dose: 1 mg Heparin Sodium (Porcine) (Heparin -) 5,000 unit SQ BID [facility] Last Admin: 10/11/17 09:04 Dose: 5,000 unit Insulin Aspart (Novolog Vial Sliding Scale -) 1 vial SQ ACHS [facility] PRN Reason: Protocol Last Admin: 10/11/17 10:57 Dose: Not Given Insulin Detemir (Levemir Vial) 10 units SQ BIDI [facility] Last Admin: 10/11/17 06:34 Dose: 10 units Levothyroxine Sodium (Synthroid -) 50 mcg PO DAILY@0700 [facility] Last Admin: 10/11/17 06:31 Dose: 50 mcg Methylprednisolone Sodium Succinate (Solu-Medrol -) 80 mg IVPUSH Q8H-IV [facility] Mirtazapine (Remeron -) 15 mg PO HS [facility] Last Admin: 10/10/17 22:47 Dose: 15 mg Multivitamins/Minerals/Vitamin C (Tab-A-Vit -) 1 tab PO DAILY [facility] Last Admin: 10/11/17 09:04 Dose: 1 tab Pantoprazole Sodium (Protonix -) 40 mg PO DAILY [facility] Last Admin: 10/11/17 09:04 Dose: 40 mg Potassium Phos/Sodium Phos (Phos-Nak Packet -) 1 packet PO BID [facility] Last Admin: 10/11/17 09:04 Dose: 1 packet - Objective Vital Signs: Vital Signs Temperature 98.3 F 10/11/17 09:00 Pulse Rate 103 H 10/11/17 09:00 Respiratory Rate 20 10/11/17 09:00 Blood Pressure 142/88 10/11/17 09:00 O2 Sat by Pulse Oximetry (%) 97 10/11/17 09:00 Constitutional: Yes: Anxious Eyes: Yes: EOM Intact HENT: Yes: Normocephalic Neck: Yes: Trachea Midline Cardiovascular: Yes: Tachycardia, S1, S2 Respiratory: Yes: Rales (SCATTERED BILATERALLY) Gastrointestinal: Yes: Soft, Abdomen, Obese Edema: LUE: 3+ Neurological: Yes: Alert Labs: CBC, BMP 10/11/17 06:00 10/11/17 06:00 INR, PTT INR 1.12 (0.82-1.09) 10/05/17 17:48 - ....Imaging Chest X-ray: Report Reviewed, Image Reviewed Cat Scan: Report Reviewed, Image Reviewed MRI: Report Reviewed Problem List - Problems (1) Fever Code(s): R50.9 - FEVER, UNSPECIFIED (2) Pneumonia Code(s): J18.9 - PNEUMONIA, UNSPECIFIED ORGANISM (3) Cancer of left breast, stage 4 Code(s): C50.912 - MALIGNANT NEOPLASM OF UNSPECIFIED SITE OF LEFT FEMALE BREAST (4) Diabetes Code(s): E11.9 - TYPE 2 DIABETES MELLITUS WITHOUT COMPLICATIONS (5) Radiation pneumonitis Code(s): J70.0 - ACUTE PULMONARY MANIFESTATIONS DUE TO RADIATION (6) Shortness of breath Code(s): R06.02 - SHORTNESS OF BREATH Assessment/Plan FEVER/SHAKING CHILLS AFTER COMPLETING IV DUAL ABS CXR REVEALS B/L INFILTRATES/ELEVATED LEFT HEMIDIAPHRAGM STG 4 BREAST CA /RECENT CHEMOTX WILL PANCULTURE/CONSIDER ATYPICAL/OPPORTUNISTIC PATHOGENS WILL CHECK ABG/CONTACT ID FOR INPUT IV FLUIDS/ANTIPYRETICS WILL FOLLOW Rosalia FARAH MD
--- NOTE | 2017-10-11 16:22 | PN ---
Progress Note (short form) - Note Progress Note: seen for fever and rigors reports breathing is improved no cough no SOB no dysuria one episode diarrhea, none since no abdominal pain just completed cefepim/zithromax- last dose this am cxray unchanged Vital Signs Period Temp Pulse Resp BP Sys/Cortez Pulse Ox Last 24 Hr 98.3 F-101.4 F 95-130 20-22 101-142/60-88 97-97 cor-rrr lungs decreeased bs at bases abd soft,nt ext no edema no suprapubic tendernes, no flank pain no rash left arm with lymphedema (chronic) looks pink +port right chest wall CBC, BMP 10/11/17 06:00 10/11/17 06:00 a/p new fevers cultures sent check cdiff if diarrhea recurs ?cellulitis lymphedema arm- start vancomycin check influenza screen d/w Dr Jade
[2017-10-11] MEDS ORDERED: VANCOMYCIN 1,250 MG in DEXTROSE 5%-WATER - 250 ML IVPB ONE (16:26)
[2017-10-11] MEDS: methylPREDNISolone NA SUCC 40 MG/1 ML VIAL IVPUSH SCH (17:02)
[2017-10-11] MEDS: AMINO ACIDS/PROTEIN HYDROLYS 30 ML LIQUID.PKT PO SCH (17:02)
--- NOTE | 2017-10-11 17:37 | CONSULT ---
Consult Consult Specialty:: hematology/Oncology - History of Present Illness History of Present Illness: 67 F, stage 4 breast Ca (last Chemotherapy was 10/05 / previous left nastectomy/ RT), HTN, HLD, and DM. Admitted via the ER due to progressive SOB and BRICEÑO. she is a [employer], now with Hgb of 8. hematology consulted for the anemia - History Source History Provided By: Patient, Family Member, Medical Record - Past Medical History Cardio/Vascular: Yes: HTN, Hyperlipdemia Gastrointestinal: Yes: GERD ...: No Endocrine: Yes: Diabetes Mellitus - Past Surgical History Past Surgical History: Yes: Mastectomy - Alcohol/Substance Use Hx Alcohol Use: No History of Substance Use: reports: None - Smoking History Smoking history: Never smoked Have you smoked in the past 12 months: No If you are a former smoker, when did you quit?: 30YRS - Social History ADL: Independent Home Medications - Allergies Allergies/Adverse Reactions: Allergies Allergy/AdvReac Type Severity Reaction Status Date / Time No Known Allergies Allergy Verified 10/05/17 17:10 - Home Medications Home Medications: Ambulatory Orders Ergocalciferol [Vitamin D2] 50,000 unit PO SA 10/05/17 Insulin Glargine,Hum.rec.anlog [Toujeo Solostar] 10 unit SQ AM 10/05/17 Levothyroxine [Synthroid -] 50 mcg PO DAILY 10/05/17 Lisinopril 10 mg PO DAILY 10/05/17 Metformin HCl [Glucophage] 1,000 mg PO BID 10/05/17 Simvastatin [Zocor -] 40 mg PO HS 10/05/17 Review of Systems - Review of Systems Constitutional: reports: Chills, Fever, Weakness HENT: denies: Difficult Swallowing Neck: denies: Decreased ROM, Lumps, Pain on Movement Cardiovascular: denies: Chest Pain Respiratory: reports: Cough, SOB. denies: Exercise Intolerance Gastrointestinal: denies: Abdominal Pain Genitourinary: denies: Burning Breasts: reports: Breast Implants Musculoskeletal: denies: Back Pain Hematology/Lymphatic: reports: No Symptoms Physical Exam Vital Signs: Vital Signs Temperature 100 F H 10/11/17 14:39 Pulse Rate 126 H 10/11/17 14:39 Respiratory Rate 20 10/11/17 14:39 Blood Pressure 101/60 10/11/17 14:39 O2 Sat by Pulse Oximetry (%) 97 10/11/17 09:00 Constitutional: Yes: Calm, Mild Distress Eyes: Yes: Conjunctiva Clear HENT: Yes: Atraumatic, Normocephalic Neck: Yes: Supple, Trachea Midline Cardiovascular: Yes: Regular Rate and Rhythm Respiratory: Yes: Regular, Diminished Gastrointestinal: Yes: Normal Bowel Sounds Breast(s): Yes: Breast Implants Extremities: Yes: WNL Edema: LUE: 2+ Neurological: Yes: Alert, Oriented Labs: CBC, BMP 10/11/17 06:00 10/11/17 06:00 Imaging - Results Cat Scan: Report Reviewed Assessment/Plan Stage IV Breast ca ( unknown further details ) , is on active systemic chemotherapy , last was on 10/05 , Oncologist: Dr.Avi Dallas in the [place]. anemia in a Pent[employer]al Fever SOB Lymphedema LUE Anemia could be multifactorial, in the acute inflmaamtory process ( fever, steroid use, recent chemo). discussed in detail with the patient and lisbet Domingo about the necessity of blood products, she refused to accept any in an event of life threatening illness. Though hgb is 8, given her respiratory status, fevers, her feeling tired/ fatigued, may require to be a at her baseline ( close to 10s) , r/o occult blood , one time blood draw for screening anemia labs. discussed about the use of NORBERT agents with IV iron, while continuing on b12, folate, MVIs. Agreed for NORBERT. Discussed the risks of NORBERT especially in the setting of a stage IV malignancy, not limited to HTN, VTEs, theoretical tumor progression. She verbalized understanding. will order epogen 13739H x5 days along with daily venofer.x5 [id number] weekly. MVI. will r/o DVT in the LUE, slightly more swollen than usual.
[2017-10-11] MEDS ORDERED: IRON SUCROSE INJECTION 100 MG in SODIUM CHLORIDE 95 ML IVPB ONE (17:49)
[2017-10-11] MEDS: EPOETIN ALFA 20,000 UNIT/1 ML VIAL SQ SCH (18:46)
[2017-10-11] MEDS: ATORVASTATIN CA 40 MG TABLET (FP) PO SCH (21:07)
[2017-10-11] MEDS: MIRTAZAPINE 15 MG TABLET (FP) PO SCH (21:07)
[2017-10-11] MEDS ORDERED: INSULIN (NOVOLOG) ASPART 100 UNITS/ML 10ML VIAL ONE (21:09)
[2017-10-12] MEDS: methylPREDNISolone NA SUCC 40 MG/1 ML VIAL IVPUSH SCH ×3 (01:14→17:19)
[2017-10-12] MEDS ORDERED: VANCOMYCIN 1 GRAM (PRE-DOCKED) 1,000 MG/250 ML BAG IVPB SCH (06:00)
[2017-10-12] MEDS: DOCUSATE SODIUM 100 MG CAPSULE (FP) PO SCH ×3 (06:03→22:46)
[2017-10-12] MEDS: VANCOMYCIN 1,000 MG in DEXTROSE 5%-WATER - 250 ML IVPB SCH ×2 (06:03→17:19)
[2017-10-12] MEDS: LEVOTHYROXINE NA 50 MCG TABLET (FP) PO SCH (06:03)
[2017-10-12] MEDS: INSULIN SLIDING SCALE (NOVOLOG) 1 VIAL SQ SCH ×4 (06:22→22:55)
[2017-10-12] MEDS: INSULIN DETEMIR 100 UNITS/ML MDV SQ SCH ×2 (06:22→17:16)
[2017-10-12] MEDS: ALBUTEROL SO4 2.5/IPRATROPIUM 0.5 INH SOL 3 ML VIAL.NEB. NEB SCH ×4 (07:27→20:57)
[2017-10-12] MEDS: BUDESONIDE 0.5 MG/2 ML INH SUSP VIAL NEB SCH ×2 (07:27→19:56)
[2017-10-12] MEDS: AMINO ACIDS/PROTEIN HYDROLYS 30 ML LIQUID.PKT PO SCH ×2 (09:22→17:19)
[2017-10-12] MEDS: PANTOPRAZOLE 40 MG TABLET (FP) PO SCH (09:23)
[2017-10-12] MEDS: FERROUS SO4 325 MG TABLET (FP) PO SCH ×3 (09:23→17:19)
[2017-10-12] MEDS: HEPARIN NA (PORCINE) 5,000 UNITS/ML 1ML VIAL SQ SCH ×2 (09:23→22:46)
[2017-10-12] MEDS: FOLIC ACID 1 MG TABLET (FP) PO SCH (09:23)
[2017-10-12] MEDS: MULTIVITAMINS (DAILY MVI) TABLET (FP) PO SCH (09:23)
[2017-10-12] MEDS: NAPH,MB-DB/K PH,MBDB POWDER PACKET PO SCH ×2 (09:24→22:47)
[2017-10-12] MEDS: EPOETIN ALFA 20,000 UNIT/1 ML VIAL SQ SCH (09:27)
--- NOTE | 2017-10-12 10:19 | PN ---
Progress Note (short form) - Note Progress Note: Pt found in bathroom having a BM. Reports feeling better. Nasal O2 in place via nasal cannula. Pulse 128. Vital Signs Period Temp Pulse Resp BP Sys/Cortez Pulse Ox Last 24 Hr 97.5 F-101.4 F 94-126 20-20 101-138/58-78 96 HEENT- NL Neck-supple Lungs- Scattered Rhonchi Heart- S1/S2 Abd-soft, NT, pos BS x 4 Ext- Trace b/l LE edema. Lymphedema of LT UE CBC, BMP 10/11/17 06:00 10/11/17 06:00 Microbiology 10/11/17 19:30 Nasopharyngeal Swab Influenza Types A,B Antigen (LUIS M) - Final 10/11/17 19:30 Nasopharyngeal Swab - Final 10/10/17 13:40 Urine For Antigen Detection Legionella Antigen - Final 10/10/17 13:40 Urine For Antigen Detection Streptococcus pneumoniae Antigen (M - Final 10/05/17 21:45 Blood - Peripheral Venous Blood Culture - Final NO GROWTH AFTER 5 DAYS INCUBATION 10/05/17 21:15 Blood - Peripheral Venous Blood Culture - Final NO GROWTH AFTER 5 DAYS INCUBATION 10/06/17 13:10 Urine - Urine Clean Catch Urine Culture - Final NO GROWTH OBTAINED 10/06/17 11:00 Nasopharyngeal Swab Influenza Types A,B Antigen (LUIS M) - Final 10/06/17 11:00 Nasopharyngeal Swab - Final Active Medications Acetaminophen (Tylenol -) 650 mg PO Q4H PRN PRN Reason: FEVER Last Admin: 10/11/17 12:49 Dose: 650 mg Albuterol/Ipratropium (Duoneb -) 1 amp NEB Q4H PRN PRN Reason: SHORT OF BREATH/WHEEZING Last Admin: 10/10/17 07:45 Dose: 1 amp Albuterol/Ipratropium (Duoneb -) 1 amp NEB RQID [facility] Last Admin: 10/12/17 07:27 Dose: 1 amp Amino Acids (Prosource No Carb Liquid Pkt) 30 ml PO BID@0800,1730 [facility] Last Admin: 10/12/17 09:22 Dose: 30 ml Atorvastatin Calcium (Lipitor -) 40 mg PO HS [facility] Last Admin: 10/11/17 21:07 Dose: 40 mg Budesonide (Pulmicort 0.5 Mg Nebulizer -) 1 amp NEB RBID [facility] Last Admin: 10/12/17 07:27 Dose: 1 amp Cyanocobalamin (Vitamin B12 Injection -) 1,000 mcg IM Q7D@1000 [facility] Docusate Sodium (Colace -) 100 mg PO TID [facility] Last Admin: 10/12/17 06:03 Dose: Not Given Epoetin Emerson (Procrit -) 20,000 unit SQ DAILY [facility] Stop: 10/15/17 10:01 Last Admin: 10/12/17 09:27 Dose: 20,000 unit Ferrous Sulfate (Feosol -) 325 mg PO TIDCM [facility] Last Admin: 10/12/17 09:23 Dose: 325 mg Folic Acid (Folic Acid -) 1 mg PO DAILY [facility] Last Admin: 10/12/17 09:23 Dose: 1 mg Heparin Sodium (Porcine) (Heparin -) 5,000 unit SQ BID [facility] Last Admin: 10/12/17 09:23 Dose: 5,000 unit Vancomycin HCl 1,000 mg/ (Dextrose) 250 mls @ 250 mls/hr IVPB Q12H [facility] Last Admin: 10/12/17 06:03 Dose: 250 mls/hr Iron Sucrose 100 mg/ Sodium (Chloride) 100 mls @ 200 mls/hr IVPB DAILY [facility] Stop: 10/16/17 10:29 Insulin Aspart (Novolog Vial Sliding Scale -) 1 vial SQ ACHS [facility] PRN Reason: Protocol Last Admin: 10/12/17 06:22 Dose: 2 units Insulin Detemir (Levemir Vial) 10 units SQ BIDI [facility] Last Admin: 10/12/17 06:22 Dose: 10 units Levothyroxine Sodium (Synthroid -) 50 mcg PO DAILY@0700 [facility] Last Admin: 10/12/17 06:03 Dose: 50 mcg Methylprednisolone Sodium Succinate (Solu-Medrol -) 80 mg IVPUSH Q8H-IV [facility] Last Admin: 10/12/17 09:23 Dose: 80 mg Mirtazapine (Remeron -) 15 mg PO HS [facility] Last Admin: 10/11/17 21:07 Dose: 15 mg Multivitamins/Minerals/Vitamin C (Tab-A-Vit -) 1 tab PO DAILY [facility] Last Admin: 10/12/17 09:23 Dose: 1 tab Pantoprazole Sodium (Protonix -) 40 mg PO DAILY [facility] Last Admin: 10/12/17 09:23 Dose: 40 mg Potassium Phos/Sodium Phos (Phos-Nak Packet -) 1 packet PO BID [facility] Last Admin: 10/12/17 09:24 Dose: 1 packet #Tachycardia Stat EKG ordered # Dyspnea ILD 2/2 to radiation? Continue nebulizer / inhaled steroids w Continue IV steroids Continue Antibiotics per ID # Stage 4 Breast CA undergoing chemo -- last treatment approx 1 week ago consider anemia / cardiomyopathy / infections as cause of dyspnea Oncology consult appreciated # Diabetes Mellitis Diabetic diet / sliding scale/ Levemir last HgA1c 9.9 had been and currently on steroids # Anemia declines blood transfusion Fe / folic acid / mvi Procrit 20,000u SQ started # Malnutrition Continue Remeron 15 mg q hs Poor appetite # Hypothyroid continue Levothyroxine 50 mcg daily # Depression Continue Remeron 15 mg q hs Problem List - Problems (1) Shortness of breath Code(s): R06.02 - SHORTNESS OF BREATH (2) Cardiomyopathy due to chemotherapy Code(s): I42.7 - CARDIOMYOPATHY DUE TO DRUG AND EXTERNAL AGENT; T45.1X5A - ADVERSE EFFECT OF ANTINEOPLASTIC AND IMMUNOSUP DRUGS, INIT (3) Cancer of left breast, stage 4 Code(s): C50.912 - MALIGNANT NEOPLASM OF UNSPECIFIED SITE OF LEFT FEMALE BREAST (4) Diabetes Code(s): E11.9 - TYPE 2 DIABETES MELLITUS WITHOUT COMPLICATIONS
--- NOTE | 2017-10-12 10:29 | PN ---
Progress Note (short form) - Note Progress Note: Breathing is slowly improving. Some dry cough. No CP. CXR: No gross change in poor inspiratory effort and mildly increased interstitial markings Intake & Output 10/09/17 10/10/17 10/11/17 10/12/17 23:59 23:59 23:59 23:59 Intake Total 440 550 800 520 Balance 440 550 800 520 Weight 168 lb 4.8 oz 167 lb 4.8 oz Last Vital Signs Temp Pulse Resp BP Pulse Ox 97.9 F 126 H 20 103/58 96 10/12/17 09:17 10/12/17 09:17 10/12/17 09:17 10/12/17 09:17 10/11/17 21:00 Active Medications Acetaminophen (Tylenol -) 650 mg PO Q4H PRN PRN Reason: FEVER Last Admin: 10/11/17 12:49 Dose: 650 mg Albuterol/Ipratropium (Duoneb -) 1 amp NEB Q4H PRN PRN Reason: SHORT OF BREATH/WHEEZING Last Admin: 10/10/17 07:45 Dose: 1 amp Albuterol/Ipratropium (Duoneb -) 1 amp NEB RQID [facility] Last Admin: 10/12/17 07:27 Dose: 1 amp Amino Acids (Prosource No Carb Liquid Pkt) 30 ml PO BID@0800,1730 [facility] Last Admin: 10/12/17 09:22 Dose: 30 ml Atorvastatin Calcium (Lipitor -) 40 mg PO HS [facility] Last Admin: 10/11/17 21:07 Dose: 40 mg Budesonide (Pulmicort 0.5 Mg Nebulizer -) 1 amp NEB RBID [facility] Last Admin: 10/12/17 07:27 Dose: 1 amp Cyanocobalamin (Vitamin B12 Injection -) 1,000 mcg IM Q7D@1000 [facility] Docusate Sodium (Colace -) 100 mg PO TID [facility] Last Admin: 10/12/17 06:03 Dose: Not Given Epoetin Emerson (Procrit -) 20,000 unit SQ DAILY [facility] Stop: 10/15/17 10:01 Last Admin: 10/12/17 09:27 Dose: 20,000 unit Ferrous Sulfate (Feosol -) 325 mg PO TIDCM [facility] Last Admin: 10/12/17 09:23 Dose: 325 mg Folic Acid (Folic Acid -) 1 mg PO DAILY [facility] Last Admin: 10/12/17 09:23 Dose: 1 mg Heparin Sodium (Porcine) (Heparin -) 5,000 unit SQ BID [facility] Last Admin: 10/12/17 09:23 Dose: 5,000 unit Vancomycin HCl 1,000 mg/ (Dextrose) 250 mls @ 250 mls/hr IVPB Q12H [facility] Last Admin: 10/12/17 06:03 Dose: 250 mls/hr Iron Sucrose 100 mg/ Sodium (Chloride) 100 mls @ 200 mls/hr IVPB DAILY [facility] Stop: 10/16/17 10:29 Insulin Aspart (Novolog Vial Sliding Scale -) 1 vial SQ ACHS [facility] PRN Reason: Protocol Last Admin: 10/12/17 06:22 Dose: 2 units Insulin Detemir (Levemir Vial) 10 units SQ BIDI [facility] Last Admin: 10/12/17 06:22 Dose: 10 units Levothyroxine Sodium (Synthroid -) 50 mcg PO DAILY@0700 [facility] Last Admin: 10/12/17 06:03 Dose: 50 mcg Methylprednisolone Sodium Succinate (Solu-Medrol -) 80 mg IVPUSH Q8H-IV [facility] Last Admin: 10/12/17 09:23 Dose: 80 mg Mirtazapine (Remeron -) 15 mg PO HS [facility] Last Admin: 18 21:07 Dose: 15 mg Multivitamins/Minerals/Vitamin C (Tab-A-Vit -) 1 tab PO DAILY [facility] Last Admin: 10/12/17 09:23 Dose: 1 tab Pantoprazole Sodium (Protonix -) 40 mg PO DAILY [facility] Last Admin: 10/12/17 09:23 Dose: 40 mg Potassium Phos/Sodium Phos (Phos-Nak Packet -) 1 packet PO BID [facility] Last Admin: 10/12/17 09:24 Dose: 1 packet Constitutional: Yes: No Distress, Calm, Obese Eyes: Yes: Conjunctiva Clear, EOM Intact HENT: Yes: Atraumatic, Normocephalic Neck: Yes: Thyromegaly Cardiovascular: Yes: Regular Rate and Rhythm Respiratory: Yes: Cough, Diminished, On Nasal O2, Rhonchi. No: Accessory Muscle Use, Rales, Stridor, Tachypnea ...Inspection: Yes: Other (post surgical ). No: Use of Accessory Muscles Gastrointestinal: Yes: WNL, Normal Bowel Sounds, Soft, Abdomen, Obese Renal/: Yes: WNL Breast(s): Yes: Breast Implants, Skin Changes Musculoskeletal: Yes: WNL Extremities: Yes: WNL Edema: Yes Peripheral Pulses WNL: Yes Integumentary: Yes: WNL Neurological: Yes: WNL, Alert, Oriented ...Motor Strength: WNL Psychiatric: Yes: WNL, Alert, Oriented Labs: Laboratory Results - last 24 hr 10/11/17 10/11/17 10/11/17 06:00 10:57 17:07 Neutrophils % (Manual) 90.2 H* Band Neutrophils % 0.0 Lymphocytes % (Manual) 3.9 L D Monocytes % (Manual) 5 Eosinophils % (Manual) 0.0 Basophils % (Manual) 0.0 Myelocytes % (Man) 1 D Promyelocytes % (Man) 0 Nucleated RBC % 0 Metamyelocytes 0 D Hypochromia 1+ Platelet Estimate Normal Anisocytosis 1+ Target Cells 1+ Tear Drop Cells 1+ Ovalocytes 1+ Retic Count POC Glucometer 199 189 10/11/17 10/12/17 10/12/17 21:02 06:00 06:04 Neutrophils % (Manual) Band Neutrophils % Lymphocytes % (Manual) Monocytes % (Manual) Eosinophils % (Manual) Basophils % (Manual) Myelocytes % (Man) Promyelocytes % (Man) Nucleated RBC % Metamyelocytes Hypochromia Platelet Estimate Anisocytosis Target Cells Tear Drop Cells Ovalocytes Retic Count 1.94 H POC Glucometer 277 238 Problem List - Problems (1) Radiation pneumonitis Code(s): J70.0 - ACUTE PULMONARY MANIFESTATIONS DUE TO RADIATION (2) Cancer of left breast, stage 4 Code(s): C50.912 - MALIGNANT NEOPLASM OF UNSPECIFIED SITE OF LEFT FEMALE BREAST (3) Cardiomyopathy due to chemotherapy Code(s): I42.7 - CARDIOMYOPATHY DUE TO DRUG AND EXTERNAL AGENT; T45.1X5A - ADVERSE EFFECT OF ANTINEOPLASTIC AND IMMUNOSUP DRUGS, INIT (4) Diabetes Code(s): E11.9 - TYPE 2 DIABETES MELLITUS WITHOUT COMPLICATIONS (5) Shortness of breath Code(s): R06.02 - SHORTNESS OF BREATH Assessment/Plan PLAN: ABX per ID O2 as needed to maintain saturation BD TX VTE prophylaxis Wean steroids Dr Plascencia Problem List - Problems (1) Radiation pneumonitis Code(s): J70.0 - ACUTE PULMONARY MANIFESTATIONS DUE TO RADIATION (2) Cancer of left breast, stage 4 Code(s): C50.912 - MALIGNANT NEOPLASM OF UNSPECIFIED SITE OF LEFT FEMALE BREAST (3) Cardiomyopathy due to chemotherapy Code(s): I42.7 - CARDIOMYOPATHY DUE TO DRUG AND EXTERNAL AGENT; T45.1X5A - ADVERSE EFFECT OF ANTINEOPLASTIC AND IMMUNOSUP DRUGS, INIT (4) Diabetes Code(s): E11.9 - TYPE 2 DIABETES MELLITUS WITHOUT COMPLICATIONS (5) Shortness of breath Code(s): R06.02 - SHORTNESS OF BREATH
--- NOTE | 2017-10-12 12:34 | PN ---
Progress Note (short form) - Note Progress Note: Patient seen and examined Patient feels a little bit better than yesterday. no further fevers. O/E: Constitutional: Yes: Calm, Mild Distress Eyes: Yes: Conjunctiva Clear HENT: Yes: Atraumatic, Normocephalic Neck: Yes: Supple, Trachea Midline Cardiovascular: Yes: Regular Rate and Rhythm Respiratory: Yes: Regular, Diminished Gastrointestinal: Yes: Normal Bowel Sounds Breast(s): Yes: Breast Implants Extremities: Yes: WNL Edema: LUE: 2+ Neurological: Yes: Alert, Oriented Last Vital Signs Temp Pulse Resp BP Pulse Ox 98.4 F 126 H 20 103/58 96 10/12/17 10:00 10/12/17 09:17 10/12/17 09:17 10/12/17 09:17 10/11/17 21:00 CBC, BMP 10/11/17 06:00 Current Medications Generic Name Dose Route Start Last Admin Trade Name Freq PRN Reason Stop Dose Admin Acetaminophen 650 mg 10/06/17 00:05 10/11/17 12:49 Tylenol - PO 650 mg Q4H PRN Administration FEVER Albuterol/Ipratropium 1 amp 10/10/17 03:12 10/10/17 07:45 Duoneb - NEB 1 amp Q4H PRN Administration SHORT OF BREATH/WHEEZING Albuterol/Ipratropium 1 amp 10/10/17 12:00 10/12/17 11:07 Duoneb - NEB 1 amp RQID [facility] Administration Amino Acids 30 ml 10/11/17 17:30 10/12/17 09:22 Prosource No Carb Liquid Pkt PO 30 ml BID@0800,1730 [facility] Administration Atorvastatin Calcium 40 mg 10/06/17 22:00 10/11/17 21:07 Lipitor - PO 40 mg HS [facility] Administration Budesonide 1 amp 10/10/17 20:00 10/12/17 07:27 Pulmicort 0.5 Mg Nebulizer - NEB 1 amp RBID [facility] Administration Cyanocobalamin 1,000 mcg 10/18/17 10:00 Vitamin B12 Injection - IM Q7D@1000 [facility] Docusate Sodium 100 mg 10/07/17 14:45 10/12/17 06:03 Colace - PO Not Given TID [facility] Epoetin Emerson 20,000 unit 10/11/17 18:00 10/12/17 09:27 Procrit - SQ 10/15/17 10:01 20,000 unit DAILY [facility] Administration Ferrous Sulfate 325 mg 10/07/17 17:30 10/12/17 11:53 Feosol - PO 325 mg TIDCM [facility] Administration Folic Acid 1 mg 10/07/17 14:45 10/12/17 09:23 Folic Acid - PO 1 mg DAILY [facility] Administration Heparin Sodium (Porcine) 5,000 unit 10/06/17 10:00 10/12/17 09:23 Heparin - SQ 5,000 unit BID [facility] Administration Vancomycin HCl 1,000 mg/ 250 mls @ 250 mls/hr 10/12/17 06:00 10/12/17 06:03 Dextrose IVPB 250 mls/hr Q12H [facility] Administration Iron Sucrose 100 mg/ Sodium 100 mls @ 200 mls/hr 10/12/17 18:15 Chloride IVPB 10/16/17 10:29 DAILY [facility] Insulin Aspart 1 vial 10/06/17 16:30 10/12/17 11:53 Novolog Vial Sliding Scale - SQ 8 units ACHS [facility] Administration Protocol Insulin Detemir 10 units 10/06/17 07:00 10/12/17 06:22 Levemir Vial SQ 10 units BIDI [facility] Administration Levothyroxine Sodium 50 mcg 10/06/17 07:00 10/12/17 06:03 Synthroid - PO 50 mcg DAILY@0700 [facility] Administration Methylprednisolone Sodium Succinate 60 mg 10/12/17 10:30 Solu-Medrol - IVPUSH Q8H-IV [facility] Mirtazapine 15 mg 10/10/17 22:00 10/11/17 21:07 Remeron - PO 15 mg HS [facility] Administration Multivitamins/Minerals/Vitamin C 1 tab 10/10/17 17:45 10/12/17 09:23 Tab-A-Vit - PO 1 tab DAILY [facility] Administration Pantoprazole Sodium 40 mg 10/10/17 11:00 10/12/17 09:23 Protonix - PO 40 mg DAILY [facility] Administration Potassium Phos/Sodium Phos 1 packet 10/07/17 14:00 10/12/17 09:24 Phos-Nak Packet - PO 1 packet BID [facility] Administration Stage IV Breast ca (triple positive, metastatic, well CR on TPH ) , is on active systemic chemotherapy , last was on 10/05 , Oncologist: Dr.Avi [place] in the [place]. anemia in a Confucianist Fever SOB Lymphedema LUE c/w epogen [id number] x5 days along with daily venofer.x5 [id number] weekly. MVI. no DVT in the LUE aware of the admission
--- NOTE | 2017-10-12 14:53 | EKG ---
Test Reason : Blood Pressure : / mmHG Vent. Rate : 109 BPM Atrial Rate : 109 BPM P-R Int : 174 ms QRS Dur : 098 ms QT Int : 344 ms P-R-T Axes : 034 -30 011 degrees QTc Int : 463 ms SINUS TACHYCARDIA POSSIBLE LEFT ATRIAL ENLARGEMENT LEFT AXIS DEVIATION LOW VOLTAGE QRS POSSIBLE INFERIOR INFARCT (CITED ON OR BEFORE 05-OCT-2017) POSSIBLE ANTEROLATERAL INFARCT (CITED ON OR BEFORE 05-OCT-2017) ABNORMAL ECG WHEN COMPARED WITH ECG OF 06-OCT-2017 09:40, QUESTIONABLE CHANGE IN INITIAL [employer]CES OF LATERAL LEADS Confirmed by ANDREINA CARRERO MD ([id number]) on 10/12/2017 2:53:08 PM Referred By: Confirmed By:ANDREINA CARRERO MD
--- NOTE | 2017-10-12 16:08 | PN ---
Progress Note, Physician History of Present Illness: Awake, alert Seated in bed Afebrile on steroids No c/o recurrent chills/ fever No c/o chest pain .Occasional cough No c/o L UE pain Flu swab negative - Current Medication List Current Medications: Active Medications Acetaminophen (Tylenol -) 650 mg PO Q4H PRN PRN Reason: FEVER Last Admin: 10/11/17 12:49 Dose: 650 mg Albuterol/Ipratropium (Duoneb -) 1 amp NEB Q4H PRN PRN Reason: SHORT OF BREATH/WHEEZING Last Admin: 10/10/17 07:45 Dose: 1 amp Albuterol/Ipratropium (Duoneb -) 1 amp NEB RQID [facility] Last Admin: 10/12/17 11:07 Dose: 1 amp Amino Acids (Prosource No Carb Liquid Pkt) 30 ml PO BID@0800,1730 [facility] Last Admin: 10/12/17 09:22 Dose: 30 ml Atorvastatin Calcium (Lipitor -) 40 mg PO HS [facility] Last Admin: 10/11/17 21:07 Dose: 40 mg Budesonide (Pulmicort 0.5 Mg Nebulizer -) 1 amp NEB RBID [facility] Last Admin: 10/12/17 07:27 Dose: 1 amp Cyanocobalamin (Vitamin B12 Injection -) 1,000 mcg IM Q7D@1000 [facility] Docusate Sodium (Colace -) 100 mg PO TID [facility] Last Admin: 10/12/17 14:51 Dose: Not Given Epoetin Emerson (Procrit -) 20,000 unit SQ DAILY [facility] Stop: 10/15/17 10:01 Last Admin: 10/12/17 09:27 Dose: 20,000 unit Ferrous Sulfate (Feosol -) 325 mg PO TIDCM [facility] Last Admin: 10/12/17 11:53 Dose: 325 mg Folic Acid (Folic Acid -) 1 mg PO DAILY [facility] Last Admin: 10/12/17 09:23 Dose: 1 mg Heparin Sodium (Porcine) (Heparin -) 5,000 unit SQ BID [facility] Last Admin: 10/12/17 09:23 Dose: 5,000 unit Vancomycin HCl 1,000 mg/ (Dextrose) 250 mls @ 250 mls/hr IVPB Q12H [facility] Last Admin: 10/12/17 06:03 Dose: 250 mls/hr Iron Sucrose 100 mg/ Sodium (Chloride) 100 mls @ 200 mls/hr IVPB DAILY [facility] Stop: 10/16/17 10:29 Insulin Aspart (Novolog Vial Sliding Scale -) 1 vial SQ ACHS [facility] PRN Reason: Protocol Last Admin: 10/12/17 11:53 Dose: 8 units Insulin Detemir (Levemir Vial) 10 units SQ BIDI [facility] Last Admin: 10/12/17 06:22 Dose: 10 units Levothyroxine Sodium (Synthroid -) 50 mcg PO DAILY@0700 [facility] Last Admin: 10/12/17 06:03 Dose: 50 mcg Methylprednisolone Sodium Succinate (Solu-Medrol -) 60 mg IVPUSH Q8H-IV [facility] Mirtazapine (Remeron -) 15 mg PO HS [facility] Last Admin: 10/11/17 21:07 Dose: 15 mg Multivitamins/Minerals/Vitamin C (Tab-A-Vit -) 1 tab PO DAILY [facility] Last Admin: 10/12/17 09:23 Dose: 1 tab Pantoprazole Sodium (Protonix -) 40 mg PO DAILY [facility] Last Admin: 10/12/17 09:23 Dose: 40 mg Potassium Phos/Sodium Phos (Phos-Nak Packet -) 1 packet PO BID [facility] Last Admin: 10/12/17 09:24 Dose: 1 packet - Objective Vital Signs: Vital Signs Temperature 97.8 F 10/12/17 14:20 Pulse Rate 113 H 10/12/17 14:20 Respiratory Rate 20 10/12/17 14:20 Blood Pressure 133/75 10/12/17 14:20 O2 Sat by Pulse Oximetry (%) 96 10/12/17 09:00 Constitutional: Yes: No Distress Cardiovascular: Yes: Regular Rate and Rhythm, S1, S2 Respiratory: Yes: CTA Bilaterally, Other (crepitations, bases bilaterally) Gastrointestinal: Yes: Normal Bowel Sounds, Soft, Abdomen, Obese. No: Tenderness Extremities: Yes: Other (L UE lymphedema. + erythema/ warmth flexor aspect of forearm.) Labs: CBC, BMP 10/11/17 06:00 INR, PTT INR 1.12 (0.82-1.09) 10/05/17 17:48 Assessment/Plan Lymphedema , possible cellulitis Leukocytosis multifactorial- improving Stage IV breast ca Diabetes mellitus Await c/s Continue vancomycin
[2017-10-12] MEDS ORDERED: PT OWN MED DRAWER 7, Y5N ONE ×2 (17:13→18:46)
--- NOTE | 2017-10-12 18:47 | PN ---
Progress Note (short form) - Note Progress Note: Chief Complaint: sob History of Present Illness: fever yesterday with sob, started on IV steroids yesterday evening. today feels significantly better. sob improved. sitting up in bed. no pain or discomfort. improved po intake. + cough. no cp, palpit, leg swelling. + fatigue Current Medications Acetaminophen (Tylenol -) 650 mg PO Q4H PRN PRN Reason: FEVER Last Admin: 10/11/17 12:49 Dose: 650 mg Albuterol/Ipratropium (Duoneb -) 1 amp NEB Q4H PRN PRN Reason: SHORT OF BREATH/WHEEZING Last Admin: 10/10/17 07:45 Dose: 1 amp Albuterol/Ipratropium (Duoneb -) 1 amp NEB RQID [facility] Last Admin: 10/12/17 16:16 Dose: 1 amp Amino Acids (Prosource No Carb Liquid Pkt) 30 ml PO BID@0800,1730 [facility] Last Admin: 10/12/17 17:19 Dose: 30 ml Atorvastatin Calcium (Lipitor -) 40 mg PO HS [facility] Last Admin: 10/11/17 21:07 Dose: 40 mg Budesonide (Pulmicort 0.5 Mg Nebulizer -) 1 amp NEB RBID [facility] Last Admin: 10/12/17 07:27 Dose: 1 amp Cyanocobalamin (Vitamin B12 Injection -) 1,000 mcg IM Q7D@1000 [facility] Docusate Sodium (Colace -) 100 mg PO TID [facility] Last Admin: 10/12/17 14:51 Dose: Not Given Epoetin Emerson (Procrit -) 20,000 unit SQ DAILY [facility] Stop: 10/15/17 10:01 Last Admin: 10/12/17 09:27 Dose: 20,000 unit Ferrous Sulfate (Feosol -) 325 mg PO TIDCM [facility] Last Admin: 10/12/17 17:19 Dose: 325 mg Folic Acid (Folic Acid -) 1 mg PO DAILY [facility] Last Admin: 10/12/17 09:23 Dose: 1 mg Heparin Sodium (Porcine) (Heparin -) 5,000 unit SQ BID [facility] Last Admin: 10/12/17 09:23 Dose: 5,000 unit Vancomycin HCl 1,000 mg/ (Dextrose) 250 mls @ 250 mls/hr IVPB Q12H [facility] Last Admin: 10/12/17 17:19 Dose: 250 mls/hr Iron Sucrose 100 mg/ Sodium (Chloride) 100 mls @ 200 mls/hr IVPB DAILY [facility] Stop: 10/16/17 10:29 Insulin Aspart (Novolog Vial Sliding Scale -) 1 vial SQ ACHS [facility] PRN Reason: Protocol Last Admin: 10/12/17 17:17 Dose: 8 units Insulin Detemir (Levemir Vial) 10 units SQ BIDI [facility] Last Admin: 10/12/17 17:16 Dose: 10 units Levothyroxine Sodium (Synthroid -) 50 mcg PO DAILY@0700 [facility] Last Admin: 10/12/17 06:03 Dose: 50 mcg Methylprednisolone Sodium Succinate (Solu-Medrol -) 60 mg IVPUSH Q8H-IV [facility] Last Admin: 10/12/17 17:19 Dose: 60 mg Mirtazapine (Remeron -) 15 mg PO HS [facility] Last Admin: 10/11/17 21:07 Dose: 15 mg Multivitamins/Minerals/Vitamin C (Tab-A-Vit -) 1 tab PO DAILY [facility] Last Admin: 10/12/17 09:23 Dose: 1 tab Pantoprazole Sodium (Protonix -) 40 mg PO DAILY [facility] Last Admin: 10/12/17 09:23 Dose: 40 mg Potassium Phos/Sodium Phos (Phos-Nak Packet -) 1 packet PO BID [facility] Last Admin: 10/12/17 09:24 Dose: 1 packet - Objective Vital Signs: Vital Signs - 24 hr 10/11/17 10/11/17 10/12/17 20:58 21:00 01:24 Temperature 98.8 F 97.5 F L Pulse Rate 103 H Respiratory 20 20 Rate Blood Pressure 138/75 O2 Sat by Pulse 96 Oximetry (%) 10/12/17 10/12/17 10/12/17 06:00 09:00 09:17 Temperature 97.8 F 97.9 F Pulse Rate 94 H 126 H Respiratory 20 20 Rate Blood Pressure 136/78 103/58 O2 Sat by Pulse 96 Oximetry (%) 10/12/17 10/12/17 10/12/17 10:00 14:20 17:23 Temperature 98.4 F 97.8 F 98.4 F Pulse Rate 113 H 120 H Respiratory 20 20 Rate Blood Pressure 133/75 116/58 O2 Sat by Pulse Oximetry (%) Intake & Output 10/10/17 10/11/17 10/12/17 10/13/17 07:59 07:59 07:59 07:59 Intake Total 540 700 820 600 Balance 540 700 820 600 Weight 168 lb 4.8 oz 167 lb 4.8 oz nad no jvd rrr s1s2 no mrg trace rle rales, dullness at left base (known elevated left hemidiaphragm), nl eff aaox3 no le e/c/c LUE lymphedema abd nt nd pos bs no jaundice diaphoresis pos dp pt no carotid bruits Labs: no CBC, BMP today 10/11/17 06:00 Assessment/Plan ecg: sr, nl intervals, irbbb, no st changes cxr 10/12: left hemidiaphragm elevation with shallow inspiration resulting in accentuated pulmonary vasculature. no chf. cxr 10/08: images, report reviewed. progressive pulmonary changes bilaterally. also with cephalization pattern likely, ? L effusion CTA chest 10/05: no PE. fibrotic changes/pleural thickening L apex. L base ATX. no congestion, effusions. ? bony met.s Echo 09/2017: tds. grossly nl lv fn. impaired relaxation. grossly nl rv size/ fn. mv not well visualized. no pericardial effusion mibi 04/2017: no ecg changes with exercise, nl mpi, lvef 47% LUE dopplers neg for dvt a/p: 67 f hx metastatic breast ca on chemo, hld, dm, htn, here with 1 week sob/ teresa. 1/2 worsening tachycardia (sinus) - 1/2 Ekg sinus tach. mgm't of anemia per heme. infectious work up per pmd/ id. LUE dopplers neg for dvt (patient with chronic lymphedema of LUE since mastectomy (left compression glove at home). - no pain, fever, discomfort, sob driving heart rate today (actually feeling signficantly improved). Will check orthostatic vitals - Patient started on IV steroids yesterday --> maybe contributing to tachycardia. sob, fevers, acute CXR changes (diffuse), stage 4 breast Ca: -no signs chf on exam or ct chest, bnp <100. -no signs acs -echo unremarkable. -hi WBC with fevers--WBC trending down, fevers continue. Cx's negative, no clear source--on empiric abx per ID -10/09 pronounced acute CXR changes 10/08 ? chf vs diffuse pneumonitis, no JVD or edema on exam, no murmurs to suggest acute valvular regurgitation-- rpt bnp wnl , lasix iv x 1 on 10/09. rpt cxr in am - 10/10: cxr improved s/p IV lasix yesterday. sob also somewhat better. Will repeat bmp again tomorrow. Need weights. Reassess need for further lasix tomorrow. - 10/12: cxr today without edema, see above. weight stable. tachycardia worsening. will defer further lasix. check orthostatic vitals. -abx per ID anemia: - heme now following. getting procrit hld: -cont statin htn: -10/08 bp trending down and remains febrile, decreased dose of lisinopril from 10 to 5 - 10/10 bp still trending down, lisinopril held this morning. Will d/c for now. - 10/12 sbp's stable off lisinopril, con't to hold.
[2017-10-12] MEDS: IRON SUCROSE INJECTION 100 MG in SODIUM CHLORIDE 95 ML IVPB SCH (20:00)
[2017-10-12] MEDS: ATORVASTATIN CA 40 MG TABLET (FP) PO SCH (22:46)
[2017-10-12] MEDS: MIRTAZAPINE 15 MG TABLET (FP) PO SCH (22:48)
[2017-10-13] MEDS: methylPREDNISolone NA SUCC 40 MG/1 ML VIAL IVPUSH SCH ×3 (01:06→18:05)
[2017-10-13] MEDS: VANCOMYCIN 1,000 MG in DEXTROSE 5%-WATER - 250 ML IVPB SCH ×2 (06:18→18:05)
[2017-10-13] MEDS: DOCUSATE SODIUM 100 MG CAPSULE (FP) PO SCH ×3 (06:19→22:03)
[2017-10-13] MEDS: LEVOTHYROXINE NA 50 MCG TABLET (FP) PO SCH (06:19)
[2017-10-13] MEDS: INSULIN SLIDING SCALE (NOVOLOG) 1 VIAL SQ SCH ×4 (06:23→22:06)
[2017-10-13] MEDS: INSULIN DETEMIR 100 UNITS/ML MDV SQ SCH ×2 (06:24→16:45)
[2017-10-13] MEDS ORDERED: INSULIN DETEMIR 100 UNITS/ML MDV SQ ONE (06:58)
[2017-10-13] MEDS ORDERED: INSULIN (NOVOLOG) ASPART 100 UNITS/ML 10ML VIAL ONE (06:58)
[2017-10-13] MEDS: ALBUTEROL SO4 2.5/IPRATROPIUM 0.5 INH SOL 3 ML VIAL.NEB. NEB SCH ×4 (07:30→20:45)
[2017-10-13] MEDS: BUDESONIDE 0.5 MG/2 ML INH SUSP VIAL NEB SCH ×2 (07:30→20:45)
[2017-10-13 07:41] LABS: HEMOGLOBIN 8.3 GM/dL (10.7-15.3); MCH 26.6 pg (25.7-33.7); MCHC 31.7 g/dl (32.0-36.0); MEAN PLT VOLUME 7.8 fl (7.5-11.1); PLATELET COUNT 576 K/MM3 (134-434); RDW 19.1 % (11.6-15.6); WHITE BLOOD COUNT 23.4 K/mm3 (4.0-10.0)
[2017-10-13] MEDS: EPOETIN ALFA 20,000 UNIT/1 ML VIAL SQ SCH (09:13)
[2017-10-13] MEDS: PANTOPRAZOLE 40 MG TABLET (FP) PO SCH (09:13)
[2017-10-13] MEDS: AMINO ACIDS/PROTEIN HYDROLYS 30 ML LIQUID.PKT PO SCH ×2 (09:13→18:07)
[2017-10-13] MEDS: HEPARIN NA (PORCINE) 5,000 UNITS/ML 1ML VIAL SQ SCH ×2 (09:13→22:04)
[2017-10-13] MEDS: MULTIVITAMINS (DAILY MVI) TABLET (FP) PO SCH (09:13)
[2017-10-13] MEDS: FERROUS SO4 325 MG TABLET (FP) PO SCH ×3 (09:13→18:05)
[2017-10-13] MEDS: FOLIC ACID 1 MG TABLET (FP) PO SCH (09:13)
[2017-10-13] MEDS: NAPH,MB-DB/K PH,MBDB POWDER PACKET PO SCH ×2 (09:14→22:05)
[2017-10-13] MEDS: IRON SUCROSE INJECTION 100 MG in SODIUM CHLORIDE 95 ML IVPB SCH (09:37)
--- NOTE | 2017-10-13 11:59 | PN ---
Progress Note (short form) - Note Progress Note: Patient seen and examined continues to feel better no further fevers. O/E: Constitutional: Yes: Calm, Mild Distress Eyes: Yes: Conjunctiva Clear HENT: Yes: Atraumatic, Normocephalic Neck: Yes: Supple, Trachea Midline Cardiovascular: Yes: Regular Rate and Rhythm Respiratory: Yes: Regular, Diminished Gastrointestinal: Yes: Normal Bowel Sounds Breast(s): Yes: Breast Implants Extremities: Yes: WNL Edema: LUE: 2+ Neurological: Yes: Alert, Oriented Last Vital Signs Temp Pulse Resp BP Pulse Ox 98.4 F 126 H 20 103/58 96 10/12/17 10:00 10/12/17 09:17 10/12/17 09:17 10/12/17 09:17 10/11/17 21:00 CBC, BMP 10/11/17 06:00 Current Medications Generic Name Dose Route Start Last Admin Trade Name Freq PRN Reason Stop Dose Admin Acetaminophen 650 mg 10/06/17 00:05 10/11/17 12:49 Tylenol - PO 650 mg Q4H PRN Administration FEVER Albuterol/Ipratropium 1 amp 10/10/17 03:12 10/10/17 07:45 Duoneb - NEB 1 amp Q4H PRN Administration SHORT OF BREATH/WHEEZING Albuterol/Ipratropium 1 amp 10/10/17 12:00 10/12/17 11:07 Duoneb - NEB 1 amp RQID [facility] Administration Amino Acids 30 ml 10/11/17 17:30 10/12/17 09:22 Prosource No Carb Liquid Pkt PO 30 ml BID@0800,1730 [facility] Administration Atorvastatin Calcium 40 mg 10/06/17 22:00 10/11/17 21:07 Lipitor - PO 40 mg HS [facility] Administration Budesonide 1 amp 10/10/17 20:00 10/12/17 07:27 Pulmicort 0.5 Mg Nebulizer - NEB 1 amp RBID [facility] Administration Cyanocobalamin 1,000 mcg 10/18/17 10:00 Vitamin B12 Injection - IM Q7D@1000 [facility] Docusate Sodium 100 mg 10/07/17 14:45 10/12/17 06:03 Colace - PO Not Given TID [facility] Epoetin Emerson 20,000 unit 10/11/17 18:00 10/12/17 09:27 Procrit - SQ 10/15/17 10:01 20,000 unit DAILY [facility] Administration Ferrous Sulfate 325 mg 10/07/17 17:30 10/12/17 11:53 Feosol - PO 325 mg TIDCM [facility] Administration Folic Acid 1 mg 10/07/17 14:45 10/12/17 09:23 Folic Acid - PO 1 mg DAILY [facility] Administration Heparin Sodium (Porcine) 5,000 unit 10/06/17 10:00 10/12/17 09:23 Heparin - SQ 5,000 unit BID [facility] Administration Vancomycin HCl 1,000 mg/ 250 mls @ 250 mls/hr 10/12/17 06:00 10/12/17 06:03 Dextrose IVPB 250 mls/hr Q12H [facility] Administration Iron Sucrose 100 mg/ Sodium 100 mls @ 200 mls/hr 10/12/17 18:15 Chloride IVPB 10/16/17 10:29 DAILY [facility] Insulin Aspart 1 vial 10/06/17 16:30 10/12/17 11:53 Novolog Vial Sliding Scale - SQ 8 units ACHS [facility] Administration Protocol Insulin Detemir 10 units 10/06/17 07:00 10/12/17 06:22 Levemir Vial SQ 10 units BIDI [facility] Administration Levothyroxine Sodium 50 mcg 10/06/17 07:00 10/12/17 06:03 Synthroid - PO 50 mcg DAILY@0700 [facility] Administration Methylprednisolone Sodium Succinate 60 mg 10/12/17 10:30 Solu-Medrol - IVPUSH Q8H-IV [facility] Mirtazapine 15 mg 10/10/17 22:00 10/11/17 21:07 Remeron - PO 15 mg HS [facility] Administration Multivitamins/Minerals/Vitamin C 1 tab 10/10/17 17:45 10/12/17 09:23 Tab-A-Vit - PO 1 tab DAILY [facility] Administration Pantoprazole Sodium 40 mg 10/10/17 11:00 10/12/17 09:23 Protonix - PO 40 mg DAILY [facility] Administration Potassium Phos/Sodium Phos 1 packet 10/07/17 14:00 10/12/17 09:24 Phos-Nak Packet - PO 1 packet BID [facility] Administration Stage IV Breast ca (triple positive, metastatic, well CR on TPH ) , is on active systemic chemotherapy , last was on 10/05 , Oncologist: Dr.Avi Dallas in the [place]. anemia in a [employer] Fever SOB Lymphedema LUE continues to improve clinically. limit blood draws. to use pediatric tubes when blood is drawn. c/w epogen [id number] x5 days along with daily venofer.x5 [id number] weekly. MVI. (D3/5) no DVT in the LUE
[2017-10-13 12:42] LABS: PLATELET ESTIMATE INCREASED
[2017-10-13 12:43] LABS: ANISOCYTOSIS 2+; TARGET CELLS 1+
--- NOTE | 2017-10-13 14:16 | PN ---
Progress Note, Physician History of Present Illness: Awake, alert Seated in bed Afebrile, WBC elevated on steroids No c/o recurrent chills/ fever No c/o chest pain .Occasional cough No c/o L UE pain Flu swab negative BC (-) - Current Medication List Current Medications: Active Medications Acetaminophen (Tylenol -) 650 mg PO Q4H PRN PRN Reason: FEVER Last Admin: 10/11/17 12:49 Dose: 650 mg Albuterol/Ipratropium (Duoneb -) 1 amp NEB Q4H PRN PRN Reason: SHORT OF BREATH/WHEEZING Last Admin: 10/10/17 07:45 Dose: 1 amp Albuterol/Ipratropium (Duoneb -) 1 amp NEB RQID [facility] Last Admin: 10/13/17 11:03 Dose: 1 amp Amino Acids (Prosource No Carb Liquid Pkt) 30 ml PO BID@0800,1730 [facility] Last Admin: 10/13/17 09:13 Dose: 30 ml Atorvastatin Calcium (Lipitor -) 40 mg PO HS [facility] Last Admin: 10/12/17 22:46 Dose: 40 mg Budesonide (Pulmicort 0.5 Mg Nebulizer -) 1 amp NEB RBID [facility] Last Admin: 10/13/17 07:30 Dose: 1 amp Cyanocobalamin (Vitamin B12 Injection -) 1,000 mcg IM Q7D@1000 [facility] Docusate Sodium (Colace -) 100 mg PO TID [facility] Last Admin: 10/13/17 06:19 Dose: 100 mg Epoetin Emerson (Procrit -) 20,000 unit SQ DAILY [facility] Stop: 10/15/17 10:01 Last Admin: 10/13/17 09:13 Dose: 20,000 unit Ferrous Sulfate (Feosol -) 325 mg PO TIDCM [facility] Last Admin: 10/13/17 12:00 Dose: 325 mg Folic Acid (Folic Acid -) 1 mg PO DAILY [facility] Last Admin: 10/13/17 09:13 Dose: 1 mg Heparin Sodium (Porcine) (Heparin -) 5,000 unit SQ BID [facility] Last Admin: 10/13/17 09:13 Dose: 5,000 unit Vancomycin HCl 1,000 mg/ (Dextrose) 250 mls @ 250 mls/hr IVPB Q12H [facility] Last Admin: 02/02/18 06:18 Dose: 250 mls/hr Iron Sucrose 100 mg/ Sodium (Chloride) 100 mls @ 200 mls/hr IVPB DAILY [facility] Stop: 10/16/17 10:29 Last Admin: 10/13/17 09:37 Dose: 200 mls/hr Insulin Aspart (Novolog Vial Sliding Scale -) 1 vial SQ ACHS [facility] PRN Reason: Protocol Last Admin: 10/13/17 12:00 Dose: 8 units Insulin Detemir (Levemir Vial) 10 units SQ BIDI [facility] Last Admin: 10/13/17 06:24 Dose: 10 units Levothyroxine Sodium (Synthroid -) 50 mcg PO DAILY@0700 [facility] Last Admin: 10/13/17 06:19 Dose: 50 mcg Methylprednisolone Sodium Succinate (Solu-Medrol -) 60 mg IVPUSH Q8H-IV [facility] Last Admin: 10/13/17 09:14 Dose: 60 mg Mirtazapine (Remeron -) 15 mg PO HS [facility] Last Admin: 10/12/17 22:48 Dose: 15 mg Multivitamins/Minerals/Vitamin C (Tab-A-Vit -) 1 tab PO DAILY [facility] Last Admin: 10/13/17 09:13 Dose: 1 tab Pantoprazole Sodium (Protonix -) 40 mg PO DAILY [facility] Last Admin: 10/13/17 09:13 Dose: 40 mg Potassium Phos/Sodium Phos (Phos-Nak Packet -) 1 packet PO BID [facility] Last Admin: 10/13/17 09:14 Dose: 1 packet - Objective Vital Signs: Vital Signs Temperature 98.6 F 10/13/17 09:04 Pulse Rate 122 H 10/13/17 09:04 Respiratory Rate 20 10/13/17 09:04 Blood Pressure 145/79 10/13/17 09:04 O2 Sat by Pulse Oximetry (%) 96 10/13/17 09:00 Constitutional: Yes: No Distress, Obese Cardiovascular: Yes: Regular Rate and Rhythm, S1, S2 Respiratory: Yes: Other (few crepitations at bases) Gastrointestinal: Yes: Normal Bowel Sounds, Soft. No: Tenderness Extremities: Yes: Other (L UE lymphedema. No erythema/ warmth) Labs: CBC, BMP 10/13/17 06:30 10/11/17 06:00 INR, PTT INR 1.12 (0.82-1.09) 10/05/17 17:48 Assessment/Plan Lymphedema , possible cellulitis- improved Leukocytosis multifactorial Stage IV breast ca Diabetes mellitus BC (-) D/C vancomycin, observe off.
--- NOTE | 2017-10-13 14:49 | PN ---
Progress Note, Physician History of Present Illness: pulmonary alert,nad,less dyspneic,+occ cough - Current Medication List Current Medications: Active Medications Acetaminophen (Tylenol -) 650 mg PO Q4H PRN PRN Reason: FEVER Last Admin: 10/11/17 12:49 Dose: 650 mg Albuterol/Ipratropium (Duoneb -) 1 amp NEB Q4H PRN PRN Reason: SHORT OF BREATH/WHEEZING Last Admin: 10/10/17 07:45 Dose: 1 amp Albuterol/Ipratropium (Duoneb -) 1 amp NEB RQID [facility] Last Admin: 10/13/17 11:03 Dose: 1 amp Amino Acids (Prosource No Carb Liquid Pkt) 30 ml PO BID@0800,1730 [facility] Last Admin: 10/13/17 09:13 Dose: 30 ml Atorvastatin Calcium (Lipitor -) 40 mg PO HS [facility] Last Admin: 10/12/17 22:46 Dose: 40 mg Budesonide (Pulmicort 0.5 Mg Nebulizer -) 1 amp NEB RBID [facility] Last Admin: 10/13/17 07:30 Dose: 1 amp Cyanocobalamin (Vitamin B12 Injection -) 1,000 mcg IM Q7D@1000 [facility] Docusate Sodium (Colace -) 100 mg PO TID [facility] Last Admin: 10/13/17 06:19 Dose: 100 mg Epoetin Emerson (Procrit -) 20,000 unit SQ DAILY [facility] Stop: 10/15/17 10:01 Last Admin: 10/13/17 09:13 Dose: 20,000 unit Ferrous Sulfate (Feosol -) 325 mg PO TIDCM [facility] Last Admin: 10/13/17 12:00 Dose: 325 mg Folic Acid (Folic Acid -) 1 mg PO DAILY [facility] Last Admin: 10/13/17 09:13 Dose: 1 mg Heparin Sodium (Porcine) (Heparin -) 5,000 unit SQ BID [facility] Last Admin: 10/13/17 09:13 Dose: 5,000 unit Vancomycin HCl 1,000 mg/ (Dextrose) 250 mls @ 250 mls/hr IVPB Q12H [facility] Last Admin: 10/13/17 06:18 Dose: 250 mls/hr Iron Sucrose 100 mg/ Sodium (Chloride) 100 mls @ 200 mls/hr IVPB DAILY [facility] Stop: 10/16/17 10:29 Last Admin: 10/13/17 09:37 Dose: 200 mls/hr Insulin Aspart (Novolog Vial Sliding Scale -) 1 vial SQ ACHS [facility] PRN Reason: Protocol Last Admin: 10/13/17 12:00 Dose: 8 units Insulin Detemir (Levemir Vial) 10 units SQ BIDI [facility] Last Admin: 10/13/17 06:24 Dose: 10 units Levothyroxine Sodium (Synthroid -) 50 mcg PO DAILY@0700 [facility] Last Admin: 10/13/17 06:19 Dose: 50 mcg Methylprednisolone Sodium Succinate (Solu-Medrol -) 60 mg IVPUSH Q8H-IV [facility] Last Admin: 10/13/17 09:14 Dose: 60 mg Mirtazapine (Remeron -) 15 mg PO HS [facility] Last Admin: 10/12/17 22:48 Dose: 15 mg Multivitamins/Minerals/Vitamin C (Tab-A-Vit -) 1 tab PO DAILY [facility] Last Admin: 10/13/17 09:13 Dose: 1 tab Pantoprazole Sodium (Protonix -) 40 mg PO DAILY [facility] Last Admin: 10/13/17 09:13 Dose: 40 mg Potassium Phos/Sodium Phos (Phos-Nak Packet -) 1 packet PO BID [facility] Last Admin: 10/13/17 09:14 Dose: 1 packet - Objective Vital Signs: Vital Signs Temperature 98.0 F 10/13/17 14:29 Pulse Rate 109 H 10/13/17 14:29 Respiratory Rate 20 10/13/17 14:29 Blood Pressure 145/79 10/13/17 09:04 O2 Sat by Pulse Oximetry (%) 96 10/13/17 09:00 Constitutional: Yes: Well Nourished, Calm Eyes: Yes: WNL HENT: Yes: WNL Cardiovascular: Yes: Regular Rate and Rhythm, S1, S2 Respiratory: Yes: Rales Gastrointestinal: Yes: Normal Bowel Sounds, Soft Extremities: Yes: WNL Edema: No Labs: CBC, BMP 10/13/17 06:30 10/11/17 06:00 INR, PTT INR 1.12 (0.82-1.09) 10/05/17 17:48 Assessment/Plan roblem List - Problems (1) Radiation pneumonitis Code(s): J70.0 - ACUTE PULMONARY MANIFESTATIONS DUE TO RADIATION (2) Cancer of left breast, stage 4 Code(s): C50.912 - MALIGNANT NEOPLASM OF UNSPECIFIED SITE OF LEFT FEMALE BREAST (3) Cardiomyopathy due to chemotherapy Code(s): I42.7 - CARDIOMYOPATHY DUE TO DRUG AND EXTERNAL AGENT; T45.1X5A - ADVERSE EFFECT OF ANTINEOPLASTIC AND IMMUNOSUP DRUGS, INIT (4) Diabetes Code(s): E11.9 - TYPE 2 DIABETES MELLITUS WITHOUT COMPLICATIONS (5) Shortness of breath Code(s): R06.02 - SHORTNESS OF BREATH Assessment/Plan PLAN: ABX per ID O2 as needed to maintain saturation BD TX VTE prophylaxis Wean steroids Dr GRADY
--- NOTE | 2017-10-13 16:19 | PN ---
Progress Note (short form) - Note Progress Note: still "short of breath" however much improved over last 3 days case discussed with oncology will do blood draws every other day Vital Signs Period Temp Pulse Resp BP Sys/Cortez Pulse Ox Last 24 Hr 97.9 F-99.9 F 95-130 20-22 102-137/58-69 97 neck supple -JVD heart S1/S2 lungs /crackles / occasional wheezing / decreased at left base abd soft ext no edema persistent lymphedema left arm CBC, BMP 10/13/17 06:30 10/11/17 06:00 CTA - negative for PE CXR no HF Microbiology 10/10/17 13:40 Urine For Antigen Detection Legionella Antigen - Final 10/10/17 13:40 Urine For Antigen Detection Streptococcus pneumoniae Antigen (M - Final 10/05/17 21:45 Blood - Peripheral Venous Blood Culture - Final NO GROWTH AFTER 5 DAYS INCUBATION 10/05/17 21:15 Blood - Peripheral Venous Blood Culture - Final NO GROWTH AFTER 5 DAYS INCUBATION 10/06/17 13:10 Urine - Urine Clean Catch Urine Culture - Final NO GROWTH OBTAINED 10/06/17 11:00 Nasopharyngeal Swab Influenza Types A,B Antigen (LUIS M) - Final 10/06/17 11:00 Nasopharyngeal Swab - Final Active Medications Acetaminophen (Tylenol -) 650 mg PO Q4H PRN PRN Reason: FEVER Last Admin: 10/10/17 22:59 Dose: 650 mg Albuterol/Ipratropium (Duoneb -) 1 amp NEB Q4H PRN PRN Reason: SHORT OF BREATH/WHEEZING Last Admin: 10/10/17 07:45 Dose: 1 amp Albuterol/Ipratropium (Duoneb -) 1 amp NEB RQID [facility] Last Admin: 10/11/17 07:25 Dose: 1 amp Albuterol/Ipratropium (Duoneb -) 1 amp NEB Q4H PRN PRN Reason: SHORTNESS OF BREATH Atorvastatin Calcium (Lipitor -) 40 mg PO HS [facility] Last Admin: 10/10/17 22:48 Dose: 40 mg Budesonide (Pulmicort 0.5 Mg Nebulizer -) 1 amp NEB RBID [facility] Last Admin: 10/11/17 07:30 Dose: 1 amp Docusate Sodium (Colace -) 100 mg PO TID [facility] Last Admin: 10/11/17 06:32 Dose: 100 mg Ferrous Sulfate (Feosol -) 325 mg PO TIDCM [facility] Last Admin: 10/11/17 08:21 Dose: 325 mg Folic Acid (Folic Acid -) 1 mg PO DAILY [facility] Last Admin: 10/11/17 09:04 Dose: 1 mg Heparin Sodium (Porcine) (Heparin -) 5,000 unit SQ BID [facility] Last Admin: 10/11/17 09:04 Dose: 5,000 unit Cefepime HCl (Maxipime 1 Gm Premix Ivpb) 1 gm in 50 mls @ 100 mls/hr IVPB Q8H- IV [facility] Last Admin: 10/11/17 09:04 Dose: 100 mls/hr Azithromycin 500 mg/ Dextrose 250 mls @ 250 mls/hr IVPB DAILY [facility] Last Admin: 10/11/17 09:04 Dose: 250 mls/hr Insulin Aspart (Novolog Vial Sliding Scale -) 1 vial SQ ACHS [facility] PRN Reason: Protocol Last Admin: 10/11/17 10:57 Dose: Not Given Insulin Detemir (Levemir Vial) 10 units SQ BIDI [facility] Last Admin: 10/11/17 06:34 Dose: 10 units Levothyroxine Sodium (Synthroid -) 50 mcg PO DAILY@0700 [facility] Last Admin: 10/11/17 06:31 Dose: 50 mcg Mirtazapine (Remeron -) 15 mg PO HS [facility] Last Admin: 10/10/17 22:47 Dose: 15 mg Multivitamins/Minerals/Vitamin C (Tab-A-Vit -) 1 tab PO DAILY [facility] Last Admin: 10/11/17 09:04 Dose: 1 tab Pantoprazole Sodium (Protonix -) 40 mg PO DAILY [facility] Last Admin: 10/11/17 09:04 Dose: 40 mg Potassium Phos/Sodium Phos (Phos-Nak Packet -) 1 packet PO BID [facility] Last Admin: 10/11/17 09:04 Dose: 1 packet # dyspnea echo reviewed repeat CXR reviewed 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 case discussed with pulmonary /Oncology nebulizer / inhaled steroids started Iv steroids --with improvement antibiotics now completed anemia --w/u done - on supplement s and Procrit # stage 4 Breast CA undergoing chemo -- last treatment approx 1 week ago consider anemia / cardiomyopathy / infections as cause of dyspnea appreciate Oncology opinion Procrit -- as patient declines blood transfusion, ( "even if it cost me my life") # Diabetes Mellitis Diabetic diet / sliding scale last HgA1c 9.9 had been on steroids during chemo # anemia declines blood transfusion Fe / folic acid / mvi /procrit labs as needed # malnutrition Poor appetite low albumin # hypothyroid continue meds # depression discussed with niece can't sleep / overall poor outlook on plans started on remeron Problem List - Problems (1) Shortness of breath Code(s): R06.02 - SHORTNESS OF BREATH (2) Cardiomyopathy due to chemotherapy Code(s): I42.7 - CARDIOMYOPATHY DUE TO DRUG AND EXTERNAL AGENT; T45.1X5A - ADVERSE EFFECT OF ANTINEOPLASTIC AND IMMUNOSUP DRUGS, INIT (3) Cancer of left breast, stage 4 Code(s): C50.912 - MALIGNANT NEOPLASM OF UNSPECIFIED SITE OF LEFT FEMALE BREAST (4) Diabetes Code(s): E11.9 - TYPE 2 DIABETES MELLITUS WITHOUT COMPLICATIONS
[2017-10-13] MEDS ORDERED: PT OWN MED DRAWER 7, Y5N ONE (18:00)
[2017-10-13] MEDS: MIRTAZAPINE 15 MG TABLET (FP) PO SCH (22:05)
[2017-10-13] MEDS: ATORVASTATIN CA 40 MG TABLET (FP) PO SCH (22:05)
[2017-10-14] MEDS: methylPREDNISolone NA SUCC 40 MG/1 ML VIAL IVPUSH SCH ×3 (01:07→17:13)
[2017-10-14] MEDS: VANCOMYCIN 1,000 MG in DEXTROSE 5%-WATER - 250 ML IVPB SCH ×2 (06:18→18:48)
[2017-10-14] MEDS: DOCUSATE SODIUM 100 MG CAPSULE (FP) PO SCH ×3 (06:21→22:30)
[2017-10-14] MEDS: LEVOTHYROXINE NA 50 MCG TABLET (FP) PO SCH (06:21)
[2017-10-14] MEDS: INSULIN DETEMIR 100 UNITS/ML MDV SQ SCH ×2 (06:25→16:54)
[2017-10-14] MEDS: INSULIN SLIDING SCALE (NOVOLOG) 1 VIAL SQ SCH ×4 (06:26→22:34)
[2017-10-14] MEDS: ALBUTEROL SO4 2.5/IPRATROPIUM 0.5 INH SOL 3 ML VIAL.NEB. NEB SCH ×2 (07:42→11:25)
[2017-10-14] MEDS: BUDESONIDE 0.5 MG/2 ML INH SUSP VIAL NEB SCH ×2 (07:43→20:45)
[2017-10-14] MEDS: AMINO ACIDS/PROTEIN HYDROLYS 30 ML LIQUID.PKT PO SCH ×2 (09:13→17:05)
[2017-10-14] MEDS: FERROUS SO4 325 MG TABLET (FP) PO SCH ×2 (09:14→14:13)
--- NOTE | 2017-10-14 09:30 | PN ---
Progress Note, Physician Chief Complaint: sob History of Present Illness: sob is definitely improving per pt. no cp, leg swelling, palpitations HR incr to 125-130 earlier per RN. pt was hemodynamically stable at that time and asymptomatic. ECG ordered--HR decr'd to 100-110 bpm, on its own - Current Medication List Current Medications: Active Medications Acetaminophen (Tylenol -) 650 mg PO Q4H PRN PRN Reason: FEVER Last Admin: 10/11/17 12:49 Dose: 650 mg Albuterol/Ipratropium (Duoneb -) 1 amp NEB Q4H PRN PRN Reason: SHORT OF BREATH/WHEEZING Last Admin: 10/10/17 07:45 Dose: 1 amp Albuterol/Ipratropium (Duoneb -) 1 amp NEB RQID [facility] Last Admin: 10/14/17 07:42 Dose: 1 amp Amino Acids (Prosource No Carb Liquid Pkt) 30 ml PO BID@0800,1730 [facility] Last Admin: 10/14/17 09:13 Dose: 30 ml Atorvastatin Calcium (Lipitor -) 40 mg PO HS [facility] Last Admin: 10/13/17 22:05 Dose: 40 mg Budesonide (Pulmicort 0.5 Mg Nebulizer -) 1 amp NEB RBID [facility] Last Admin: 10/14/17 07:43 Dose: 1 amp Cyanocobalamin (Vitamin B12 Injection -) 1,000 mcg IM Q7D@1000 [facility] Docusate Sodium (Colace -) 100 mg PO TID [facility] Last Admin: 10/14/17 06:21 Dose: 100 mg Epoetin Emerson (Procrit -) 20,000 unit SQ DAILY [facility] Stop: 10/15/17 10:01 Last Admin: 10/13/17 09:13 Dose: 20,000 unit Ferrous Sulfate (Feosol -) 325 mg PO TIDCM [facility] Last Admin: 10/14/17 09:14 Dose: 325 mg Folic Acid (Folic Acid -) 1 mg PO DAILY [facility] Last Admin: 10/13/17 09:13 Dose: 1 mg Heparin Sodium (Porcine) (Heparin -) 5,000 unit SQ BID [facility] Last Admin: 10/13/17 22:04 Dose: 5,000 unit Vancomycin HCl 1,000 mg/ (Dextrose) 250 mls @ 250 mls/hr IVPB Q12H [facility] Last Admin: 10/14/17 06:18 Dose: 250 mls/hr Iron Sucrose 100 mg/ Sodium (Chloride) 100 mls @ 200 mls/hr IVPB DAILY [facility] Stop: 10/16/17 10:29 Last Admin: 10/13/17 09:37 Dose: 200 mls/hr Insulin Aspart (Novolog Vial Sliding Scale -) 1 vial SQ ACHS [facility] PRN Reason: Protocol Last Admin: 10/14/17 06:26 Dose: 6 units Insulin Detemir (Levemir Vial) 10 units SQ BIDI [facility] Last Admin: 10/14/17 06:25 Dose: 10 units Levothyroxine Sodium (Synthroid -) 50 mcg PO DAILY@0700 [facility] Last Admin: 10/14/17 06:21 Dose: 50 mcg Methylprednisolone Sodium Succinate (Solu-Medrol -) 60 mg IVPUSH Q8H-IV [facility] Last Admin: 10/14/17 01:07 Dose: 60 mg Mirtazapine (Remeron -) 15 mg PO HS [facility] Last Admin: 10/13/17 22:05 Dose: 15 mg Multivitamins/Minerals/Vitamin C (Tab-A-Vit -) 1 tab PO DAILY [facility] Last Admin: 10/13/17 09:13 Dose: 1 tab Pantoprazole Sodium (Protonix -) 40 mg PO DAILY [facility] Last Admin: 10/13/17 09:13 Dose: 40 mg Potassium Phos/Sodium Phos (Phos-Nak Packet -) 1 packet PO BID [facility] Last Admin: 10/13/17 22:05 Dose: 1 packet - Objective Vital Signs: Vital Signs Temperature 98 F 10/14/17 08:53 Pulse Rate 124 H 10/14/17 08:53 Respiratory Rate 18 10/14/17 08:53 Blood Pressure 135/65 10/14/17 08:53 O2 Sat by Pulse Oximetry (%) 97 10/13/17 21:00 Constitutional: Yes: Well Nourished, No Distress, Calm Cardiovascular: Yes: Regular Rate and Rhythm. No: JVD ((prominent arterial pulsation)), Gallop, Murmur Respiratory: Yes: Regular, Wheezes (faint). No: Accessory Muscle Use, Rales Extremities: No: Cold Edema: No Neurological: Yes: Alert, Oriented Psychiatric: No: Agitated Labs: CBC, BMP 10/13/17 06:30 10/11/17 06:00 INR, PTT INR 1.12 (0.82-1.09) 10/05/17 17:48 Assessment/Plan rpt ECG 10/14: sinus tach 105 bpm, LAFB, old AWMI with TWI v2-- no change vs 10/12, 10/06 cxr 10/12: left hemidiaphragm elevation with shallow inspiration resulting in accentuated pulmonary vasculature. no chf. cxr 10/08: images, report reviewed. progressive pulmonary changes bilaterally. also with cephalization pattern likely, ? L effusion CTA chest 10/05: no PE. fibrotic changes/pleural thickening L apex. L base ATX. no congestion, effusions. ? bony met.s Echo 09/2017: tds. grossly nl lv fn. impaired relaxation. grossly nl rv size/ fn. mv not well visualized. no pericardial effusion mibi 04/2017: no ecg changes with exercise, nl mpi, lvef 47% LUE dopplers neg for dvt a/p: 67 f hx metastatic breast ca on chemo, hld, dm, htn, here with 1 week sob/ teresa. sinus tach - suspect sec to acute radiation pneumonitis +/- IV steroids. - CXR 10/14 image reviewed: no cephalization, ? small L effusion, faint interstitial prominence--no change vs prior - she will likely tolerate sinus tach intermittently, as she has had no CHF here. will use prn low dose diltiazem in case of sustained marked tachycardia ( avoid BB given risk it may precipitate bronchospasm in this pt) radiation pneumonitis (sob, fever)/transient worsened diffuse interstitial infiltrates on CXR 10/09--improved, stage 4 breast Ca: -no signs chf on exam or ct chest, bnp <100. received brief IV lasix following acute CXR changes here, now off -no signs acs -likely no chf component here (suspect transient incr'd interstitial infiltrates were part of pneumonitis, dropped BP after IVP lasix) -echo unremarkable. -abx per ID, steroid taper per pulm -sob currently is improving, and she is clinically stable -low threshol for prn lasix 20-40mg IV if worsening sob or incr infiltrates on cxr anemia: - declines blood transfusions. - heme now following, pt on procrit htn: -lisinopril held here for low bp trend -bp controlled, cont to observe hld: -cont statin
--- NOTE | 2017-10-14 10:16 | PN ---
Progress Note (short form) - Note Progress Note: still "short of breath" continued improvement noted to be tachycardic at rest / asymptomatic discussed with nurse and Cardio CXR / EKG ordred case discussed with oncology will do blood draws every other day Vital Signs Period Temp Pulse Resp BP Sys/Cortez Pulse Ox Last 24 Hr 97.8 F-98.6 F 97-124 18-20 132-148/65-82 97 neck supple -JVD heart S1/S2 iregular / tachy lungs /crackles / occasional wheezing / decreased at left base abd soft ext no edema persistent lymphedema left arm CBC, BMP 10/13/17 06:30 10/11/17 06:00 CTA - negative for PE CXR -- pending results Microbiology 10/10/17 13:40 Urine For Antigen Detection Legionella Antigen - Final 10/10/17 13:40 Urine For Antigen Detection Streptococcus pneumoniae Antigen (M - Final 10/05/17 21:45 Blood - Peripheral Venous Blood Culture - Final NO GROWTH AFTER 5 DAYS INCUBATION 10/05/17 21:15 Blood - Peripheral Venous Blood Culture - Final NO GROWTH AFTER 5 DAYS INCUBATION 10/06/17 13:10 Urine - Urine Clean Catch Urine Culture - Final NO GROWTH OBTAINED 10/06/17 11:00 Nasopharyngeal Swab Influenza Types A,B Antigen (LUIS M) - Final 10/06/17 11:00 Nasopharyngeal Swab - Final Active Medications Acetaminophen (Tylenol -) 650 mg PO Q4H PRN PRN Reason: FEVER Last Admin: 10/10/17 22:59 Dose: 650 mg Albuterol/Ipratropium (Duoneb -) 1 amp NEB Q4H PRN PRN Reason: SHORT OF BREATH/WHEEZING Last Admin: 10/10/17 07:45 Dose: 1 amp Albuterol/Ipratropium (Duoneb -) 1 amp NEB RQID [facility] Last Admin: 10/11/17 07:25 Dose: 1 amp Albuterol/Ipratropium (Duoneb -) 1 amp NEB Q4H PRN PRN Reason: SHORTNESS OF BREATH Atorvastatin Calcium (Lipitor -) 40 mg PO HS [facility] Last Admin: 10/10/17 22:48 Dose: 40 mg Budesonide (Pulmicort 0.5 Mg Nebulizer -) 1 amp NEB RBID [facility] Last Admin: 10/11/17 07:30 Dose: 1 amp Docusate Sodium (Colace -) 100 mg PO TID [facility] Last Admin: 10/11/17 06:32 Dose: 100 mg Ferrous Sulfate (Feosol -) 325 mg PO TIDCM [facility] Last Admin: 10/11/17 08:21 Dose: 325 mg Folic Acid (Folic Acid -) 1 mg PO DAILY [facility] Last Admin: 10/11/17 09:04 Dose: 1 mg Heparin Sodium (Porcine) (Heparin -) 5,000 unit SQ BID [facility] Last Admin: 10/11/17 09:04 Dose: 5,000 unit Cefepime HCl (Maxipime 1 Gm Premix Ivpb) 1 gm in 50 mls @ 100 mls/hr IVPB Q8H- IV [facility] Last Admin: 10/11/17 09:04 Dose: 100 mls/hr Azithromycin 500 mg/ Dextrose 250 mls @ 250 mls/hr IVPB DAILY [facility] Last Admin: 10/11/17 09:04 Dose: 250 mls/hr Insulin Aspart (Novolog Vial Sliding Scale -) 1 vial SQ ACHS [facility] PRN Reason: Protocol Last Admin: 10/11/17 10:57 Dose: Not Given Insulin Detemir (Levemir Vial) 10 units SQ BIDI [facility] Last Admin: 10/11/17 06:34 Dose: 10 units Levothyroxine Sodium (Synthroid -) 50 mcg PO DAILY@0700 [facility] Last Admin: 10/11/17 06:31 Dose: 50 mcg Mirtazapine (Remeron -) 15 mg PO HS [facility] Last Admin: 10/10/17 22:47 Dose: 15 mg Multivitamins/Minerals/Vitamin C (Tab-A-Vit -) 1 tab PO DAILY [facility] Last Admin: 10/11/17 09:04 Dose: 1 tab Pantoprazole Sodium (Protonix -) 40 mg PO DAILY [facility] Last Admin: 10/11/17 09:04 Dose: 40 mg Potassium Phos/Sodium Phos (Phos-Nak Packet -) 1 packet PO BID [facility] Last Admin: 10/11/17 09:04 Dose: 1 packet # Tachycardia aymptomatic pulse irregular --? 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 case discussed with pulmonary /Oncology nebulizer / inhaled steroids started Iv steroids --with improvement antibiotics now completed anemia --w/u done - on supplement s and Procrit # stage 4 Breast CA undergoing chemo -- last treatment approx 2 week ago consider anemia / cardiomyopathy / infections as treatable cause of dyspnea appreciate Oncology opinion Procrit -- as patient declines blood transfusion, ( "even if it cost me my life") # Diabetes Mellitis Diabetic diet / sliding scale last HgA1c 9.9 had been on steroids during chemo # anemia declines blood transfusion Fe / folic acid / mvi /procrit labs as needed # malnutrition Poor appetite low albumin # hypothyroid continue meds # depression discussed with niece can't sleep / overall poor outlook on plans started on remeron Problem List - Problems (1) Shortness of breath Code(s): R06.02 - SHORTNESS OF BREATH (2) Cardiomyopathy due to chemotherapy Code(s): I42.7 - CARDIOMYOPATHY DUE TO DRUG AND EXTERNAL AGENT; T45.1X5A - ADVERSE EFFECT OF ANTINEOPLASTIC AND IMMUNOSUP DRUGS, INIT (3) Cancer of left breast, stage 4 Code(s): C50.912 - MALIGNANT NEOPLASM OF UNSPECIFIED SITE OF LEFT FEMALE BREAST (4) Diabetes Code(s): E11.9 - TYPE 2 DIABETES MELLITUS WITHOUT COMPLICATIONS
[2017-10-14] MEDS ORDERED: PT OWN MED DRAWER 7, Y5N ONE ×3 (10:52→21:26)
[2017-10-14] MEDS: NAPH,MB-DB/K PH,MBDB POWDER PACKET PO SCH ×2 (11:02→22:31)
[2017-10-14] MEDS: FOLIC ACID 1 MG TABLET (FP) PO SCH (11:02)
[2017-10-14] MEDS: EPOETIN ALFA 20,000 UNIT/1 ML VIAL SQ SCH (11:02)
[2017-10-14] MEDS: MULTIVITAMINS (DAILY MVI) TABLET (FP) PO SCH (11:02)
[2017-10-14] MEDS: PANTOPRAZOLE 40 MG TABLET (FP) PO SCH (11:02)
[2017-10-14] MEDS: HEPARIN NA (PORCINE) 5,000 UNITS/ML 1ML VIAL SQ SCH ×2 (11:03→22:30)
[2017-10-14] MEDS: IRON SUCROSE INJECTION 100 MG in SODIUM CHLORIDE 95 ML IVPB SCH (11:04)
--- NOTE | 2017-10-14 11:28 | PN ---
Progress Note (short form) - Note Progress Note: PULMONARY Breathing better today. +nonproductive cough. No fevers or chills. Last Vital Signs Temp Pulse Resp BP Pulse Ox 98 F 124 H 18 135/65 97 10/14/17 08:53 10/14/17 08:53 10/14/17 08:53 10/14/17 08:53 10/13/17 21:00 Gen: mildly tachypneic at rest Heart: tachycardic, regular Lung: scattered rhonchi Abd: soft, nontender Ext: + edema CBC, BMP 10/13/17 06:30 10/11/17 06:00 Active Medications Acetaminophen (Tylenol -) 650 mg PO Q4H PRN PRN Reason: FEVER Last Admin: 10/11/17 12:49 Dose: 650 mg Albuterol/Ipratropium (Duoneb -) 1 amp NEB Q4H PRN PRN Reason: SHORT OF BREATH/WHEEZING Last Admin: 10/10/17 07:45 Dose: 1 amp Albuterol/Ipratropium (Duoneb -) 1 amp NEB RQID [facility]PL[facility] Last Admin: 10/14/17 11:25 Dose: 1 amp Amino Acids (Prosource No Carb Liquid Pkt) 30 ml PO BID@0800,1730 [facility] Last Admin: 10/14/17 09:13 Dose: 30 ml Atorvastatin Calcium (Lipitor -) 40 mg PO HS [facility] Last Admin: 10/13/17 22:05 Dose: 40 mg Budesonide (Pulmicort 0.5 Mg Nebulizer -) 1 amp NEB RBID [facility] Last Admin: 10/14/17 07:43 Dose: 1 amp Cyanocobalamin (Vitamin B12 Injection -) 1,000 mcg IM Q7D@1000 [facility] Docusate Sodium (Colace -) 100 mg PO TID [facility] Last Admin: 10/14/17 06:21 Dose: 100 mg Epoetin Emerson (Procrit -) 20,000 unit SQ DAILY [facility] Stop: 10/15/17 10:01 Last Admin: 10/14/17 11:02 Dose: 20,000 unit Ferrous Sulfate (Feosol -) 325 mg PO TIDCM [facility] Last Admin: 10/14/17 09:14 Dose: 325 mg Folic Acid (Folic Acid -) 1 mg PO DAILY [facility] Last Admin: 10/14/17 11:02 Dose: 1 mg Heparin Sodium (Porcine) (Heparin -) 5,000 unit SQ BID [facility] Last Admin: 10/14/17 11:03 Dose: 5,000 unit Vancomycin HCl 1,000 mg/ (Dextrose) 250 mls @ 250 mls/hr IVPB Q12H [facility] Last Admin: 10/14/17 06:18 Dose: 250 mls/hr Iron Sucrose 100 mg/ Sodium (Chloride) 100 mls @ 200 mls/hr IVPB DAILY [facility] Stop: 10/16/17 10:29 Last Admin: 10/14/17 11:04 Dose: 200 mls/hr Insulin Aspart (Novolog Vial Sliding Scale -) 1 vial SQ ACHS [facility] PRN Reason: Protocol Last Admin: 10/14/17 06:26 Dose: 6 units Insulin Detemir (Levemir Vial) 10 units SQ BIDI [facility] Last Admin: 10/14/17 06:25 Dose: 10 units Levothyroxine Sodium (Synthroid -) 50 mcg PO DAILY@0700 [facility] Last Admin: 10/14/17 06:21 Dose: 50 mcg Methylprednisolone Sodium Succinate (Solu-Medrol -) 60 mg IVPUSH Q8H-IV [facility] Last Admin: 10/14/17 11:03 Dose: 60 mg Mirtazapine (Remeron -) 15 mg PO HS [facility] Last Admin: 10/13/17 22:05 Dose: 15 mg Multivitamins/Minerals/Vitamin C (Tab-A-Vit -) 1 tab PO DAILY [facility] Last Admin: 10/14/17 11:02 Dose: 1 tab Pantoprazole Sodium (Protonix -) 40 mg PO DAILY [facility] Last Admin: 10/14/17 11:02 Dose: 40 mg Potassium Phos/Sodium Phos (Phos-Nak Packet -) 1 packet PO BID [facility] Last Admin: 10/14/17 11:02 Dose: 1 packet A/P Radiation Pneumonitis Metastatic Breast Ca HTN Hyperlipidemia DM - will decrease medrol to 40mg q8h - inhaled bronchodilators as needed, will change to PRN as pt persistently tachycardic - O2 to keep SpO2 >90% - glucose control while on systemic steroids - PO as tolerated - DVT prophylaxis
[2017-10-14] MEDS ORDERED: dilTIAZem HCL 30 MG TABLET (FP) PO PRN (12:31)
--- NOTE | 2017-10-14 12:59 | EKG ---
Test Reason : Blood Pressure : / mmHG Vent. Rate : 105 BPM Atrial Rate : 105 BPM P-R Int : 170 ms QRS Dur : 094 ms QT Int : 348 ms P-R-T Axes : 041 -30 016 degrees QTc Int : 459 ms SINUS TACHYCARDIA LEFT AXIS DEVIATION LOW VOLTAGE QRS POOR R WAVE PROGRESSION ABNORMAL ECG WHEN COMPARED WITH ECG OF 12-OCT-2017 10:46, NO SIGNIFICANT CHANGE WAS FOUND Confirmed by BLANCA LARSON, EFREM ([id number]) on 10/14/2017 12:58:49 PM Referred By: Kayla MATHIAS Confirmed By:EFREM RIOS MD
--- NOTE | 2017-10-14 14:56 | PN ---
Progress Note (short form) - Note Progress Note: PAtient seen and examined c/o constipation. c/o worsening LUE edema Last Vital Signs Temp Pulse Resp BP Pulse Ox 98.2 F 111 H 18 131/69 97 10/14/17 14:59 10/14/17 14:59 10/14/17 14:59 10/14/17 14:59 10/13/17 21:00 Cor: RSR, No murmurs, No gallops Lungs: Clear to P&A Abd: Soft, Normal bowel sounds, No organomegaly Ext:LUE edema worsening Abnormal Lab Results 10/12/17 06:00 Hct 25.6 L Active Medications Generic Name Dose Route Start Last Admin Trade Name Freq PRN Reason Stop Dose Admin Acetaminophen 650 mg 10/06/17 00:05 10/11/17 12:49 Tylenol - PO 650 mg Q4H PRN Administration FEVER Albuterol/Ipratropium 1 amp 10/10/17 03:12 10/10/17 07:45 Duoneb - NEB 1 amp Q4H PRN Administration SHORT OF BREATH/WHEEZING Amino Acids 30 ml 10/11/17 17:30 10/14/17 09:13 Prosource No Carb Liquid Pkt PO 30 ml BID@0800,1730 [facility] Administration Atorvastatin Calcium 40 mg 10/06/17 22:00 10/13/17 22:05 Lipitor - PO 40 mg HS [facility] Administration Budesonide 1 amp 10/10/17 20:00 10/14/17 07:43 Pulmicort 0.5 Mg Nebulizer - NEB 1 amp RBID [facility] Administration Cyanocobalamin 1,000 mcg 10/18/17 10:00 Vitamin B12 Injection - IM Q7D@1000 [facility] Diltiazem HCl 30 mg 10/14/17 12:31 Cardizem - PO QID PRN TACHYCARDIA Docusate Sodium 100 mg 10/07/17 14:45 10/14/17 14:14 Colace - PO Not Given TID [facility] Epoetin Emerson 20,000 unit 10/11/17 18:00 10/14/17 11:02 Procrit - SQ 10/15/17 10:01 20,000 unit DAILY [facility] Administration Ferrous Sulfate 325 mg 10/07/17 17:30 10/14/17 14:13 Feosol - PO Not Given TIDCM [facility] Folic Acid 1 mg 10/07/17 14:45 10/14/17 11:02 Folic Acid - PO 1 mg DAILY [facility] Administration Heparin Sodium (Porcine) 5,000 unit 10/06/17 10:00 10/14/17 11:03 Heparin - SQ 5,000 unit BID [facility] Administration Vancomycin HCl 1,000 mg/ 250 mls @ 250 mls/hr 10/12/17 06:00 10/14/17 06:18 Dextrose IVPB 250 mls/hr Q12H [facility] Administration Iron Sucrose 100 mg/ Sodium 100 mls @ 200 mls/hr 10/12/17 18:15 10/14/17 11: 04 Chloride IVPB 10/16/17 10:29 200 mls/hr DAILY [facility] Administration Insulin Aspart 1 vial 10/06/17 16:30 10/14/17 12:14 Novolog Vial Sliding Scale - SQ 6 units ACHS [facility] Administration Protocol Insulin Detemir 10 units 10/06/17 07:00 10/14/17 06:25 Levemir Vial SQ 10 units BIDI [facility] Administration Levothyroxine Sodium 50 mcg 10/06/17 07:00 10/14/17 06:21 Synthroid - PO 50 mcg DAILY@0700 [facility] Administration Methylprednisolone Sodium Succinate 40 mg 10/14/17 11:30 Solu-Medrol - IVPUSH Q8H-IV [facility] Mirtazapine 15 mg 10/10/17 22:00 10/13/17 22:05 Remeron - PO 15 mg HS [facility] Administration Multivitamins/Minerals/Vitamin C 1 tab 10/10/17 17:45 10/14/17 11:02 Tab-A-Vit - PO 1 tab DAILY [facility] Administration Pantoprazole Sodium 40 mg 10/10/17 11:00 10/14/17 11:02 Protonix - PO 40 mg DAILY [facility] Administration Potassium Phos/Sodium Phos 1 packet 10/07/17 14:00 10/14/17 11:02 Phos-Nak Packet - PO 1 packet BID [facility] Administration A/P Stage IV Breast ca (triple positive, metastatic, on TPH ) , is on active systemic chemotherapy , last was on 10/05 , Oncologist: [place]Avi [place]. anemia in a [facility] Fever SOB Lymphedema LUE continues to improve clinically. c/w epogen [id number] x5 days along with daily venofer.x5 [id number] weekly. MVI. (D4/5) check duplex LUE
[2017-10-14] MEDS: ATORVASTATIN CA 40 MG TABLET (FP) PO SCH (22:30)
[2017-10-14] MEDS: MIRTAZAPINE 15 MG TABLET (FP) PO SCH (22:30)
[2017-10-15] MEDS: methylPREDNISolone NA SUCC 40 MG/1 ML VIAL IVPUSH SCH ×3 (03:55→17:24)
[2017-10-15] MEDS: INSULIN SLIDING SCALE (NOVOLOG) 1 VIAL SQ SCH ×4 (06:06→21:42)
[2017-10-15] MEDS: LEVOTHYROXINE NA 50 MCG TABLET (FP) PO SCH (06:06)
[2017-10-15] MEDS: INSULIN DETEMIR 100 UNITS/ML MDV SQ SCH ×2 (06:06→17:28)
[2017-10-15] MEDS: DOCUSATE SODIUM 100 MG CAPSULE (FP) PO SCH ×3 (06:06→21:40)
[2017-10-15] MEDS: BUDESONIDE 0.5 MG/2 ML INH SUSP VIAL NEB SCH ×2 (07:34→20:49)
[2017-10-15 08:09] LABS: HEMATOCRIT 26.4 % (32.4-45.2); HEMOGLOBIN 8.1 GM/dL (10.7-15.3); MCH 26.2 pg (25.7-33.7); MCHC 30.8 g/dl (32.0-36.0); MEAN CELL VOLUME 85.1 fl (80-96); MEAN PLT VOLUME 7.5 fl (7.5-11.1); PLATELET COUNT 657 K/MM3 (134-434); RDW 19.2 % (11.6-15.6); WHITE BLOOD COUNT 23.3 K/mm3 (4.0-10.0)
[2017-10-15 08:13] LABS: ALBUMIN 2.3 g/dl (3.4-5.0); ANION GAP 8 (8-16); BLOOD UREA NITROGEN 33 mg/dL (7-18); CALCIUM 8.2 mg/dL (8.5-10.1); CHLORIDE 105 mmol/L (98-107); CO2 28 mmol/L (21-32); GLUCOSE,RANDOM 196 mg/dL (74-106); POTASSIUM 4.8 mmol/L (3.5-5.1); SODIUM 141 mmol/L (136-145)
[2017-10-15 08:16] LABS: ALK PHOS 99 U/L (45-117); BILIRUBIN,TOTAL 0.2 mg/dL (0.2-1.0); SGOT/AST 18 U/L (15-37); SGPT/ALT 27 U/L (12-78); TOT PROT 5.7 g/dl (6.4-8.2)
[2017-10-15 09:26] LABS: PLATELET ESTIMATE INCREASED
[2017-10-15 09:32] LABS: CORRECTED WBC 20.44 K/mm3
[2017-10-15] MEDS: AMINO ACIDS/PROTEIN HYDROLYS 30 ML LIQUID.PKT PO SCH ×2 (10:19→17:24)
--- NOTE | 2017-10-15 11:12 | PN ---
Progress Note (short form) - Note Progress Note: PULMONARY Steroids decreased yesterday, states breathing better today. Heart rate better now that nebs are PRN. +nonproductive cough. No fevers or chills. Last Vital Signs Temp Pulse Resp BP Pulse Ox 98.2 F 85 20 152/93 97 10/15/17 05:37 10/15/17 05:37 10/15/17 05:37 10/15/17 05:37 10/14/17 21:00 Gen: less tachypneic at rest Heart: less tachycardic, regular Lung: scattered rhonchi Abd: soft, nontender Ext: + UE edema CBC, BMP 10/15/17 06:45 10/15/17 06:45 Active Medications Acetaminophen (Tylenol -) 650 mg PO Q4H PRN PRN Reason: FEVER Last Admin: 10/11/17 12:49 Dose: 650 mg Albuterol/Ipratropium (Duoneb -) 1 amp NEB Q4H PRN PRN Reason: SHORT OF BREATH/WHEEZING Last Admin: 10/10/17 07:45 Dose: 1 amp Amino Acids (Prosource No Carb Liquid Pkt) 30 ml PO BID@0800,1730 [facility] Last Admin: 10/15/17 10:19 Dose: Not Given Atorvastatin Calcium (Lipitor -) [address] [facility] Last Admin: 10/14/17 22:30 Dose: 40 mg Budesonide (Pulmicort 0.5 Mg Nebulizer -) [address] [facility] Last Admin: 10/15/17 07:34 Dose: 1 amp Cyanocobalamin (Vitamin B12 Injection -) 1,000 mcg IM Q7D@1000 [facility] Diltiazem HCl (Cardizem -) 30 mg PO QID PRN PRN Reason: TACHYCARDIA Last Admin: 10/14/17 17:06 Dose: 30 mg Docusate Sodium (Colace -) [address] [facility] Last Admin: 10/15/17 06:06 Dose: 100 mg Folic Acid (Folic Acid -) [address] [facility] Last Admin: 10/14/17 11:02 Dose: 1 mg Heparin Sodium (Porcine) (Heparin -) 5,[address] [facility] Last Admin: 10/14/17 22:30 Dose: 5,000 unit Iron Sucrose 100 mg/ Sodium (Chloride) 100 mls @ 200 mls/hr IVPB DAILY [facility] Stop: 10/16/17 10:29 Last Admin: 10/14/17 11:04 Dose: 200 mls/hr Insulin Aspart (Novolog Vial Sliding Scale -) [address] [facility] PRN Reason: Protocol Last Admin: 10/15/17 06:06 Dose: 2 units Insulin Detemir (Levemir Vial) [address] [facility] Last Admin: 10/15/17 06:06 Dose: 10 units Levothyroxine Sodium (Synthroid -) 50 mcg PO DAILY@0700 [facility] Last Admin: 10/15/17 06:06 Dose: 50 mcg Methylprednisolone Sodium Succinate (Solu-Medrol -) 40 [address] IVPUSH Q8H-IV [facility] Last Admin: 10/15/17 03:55 Dose: 40 mg Mirtazapine (Remeron -) [address] [facility] Last Admin: 10/14/17 22:30 Dose: 15 mg Multivitamins/Minerals/Vitamin C (Tab-A-Vit -) [address] [facility] Last Admin: 10/14/17 11:02 Dose: 1 tab Pantoprazole Sodium (Protonix -) [address] [facility] Last Admin: 10/14/17 11:02 Dose: 40 mg Potassium Phos/Sodium Phos (Phos-Nak Packet -) [address] [facility] Last Admin: 10/14/17 22:31 Dose: 1 packet A/P Radiation Pneumonitis Metastatic Breast Ca HTN Hyperlipidemia DM - continue medrol 40mg q8h, may decrease tomorrow if continues to improve - inhaled bronchodilators as needed - O2 to keep SpO2 >90% - glucose control while on systemic steroids - PO as tolerated - DVT prophylaxis
[2017-10-15] MEDS: NAPH,MB-DB/K PH,MBDB POWDER PACKET PO SCH ×2 (11:19→21:47)
[2017-10-15] MEDS: PANTOPRAZOLE 40 MG TABLET (FP) PO SCH (11:20)
[2017-10-15] MEDS: HEPARIN NA (PORCINE) 5,000 UNITS/ML 1ML VIAL SQ SCH ×2 (11:20→21:41)
[2017-10-15] MEDS: MULTIVITAMINS (DAILY MVI) TABLET (FP) PO SCH (11:20)
[2017-10-15] MEDS: FOLIC ACID 1 MG TABLET (FP) PO SCH (11:20)
[2017-10-15] MEDS: IRON SUCROSE INJECTION 100 MG in SODIUM CHLORIDE 95 ML IVPB SCH (11:21)
[2017-10-15] MEDS: EPOETIN ALFA 20,000 UNIT/1 ML VIAL SQ SCH (15:09)
--- NOTE | 2017-10-15 20:19 | PN ---
Progress Note (short form) - Note Progress Note: sitting upin bed reports getting better - able to walk to bathroom with less dyspnea seems in better spirits Vital Signs Period Temp Pulse Resp BP Sys/Cortez Pulse Ox Last 24 Hr 97.5 F-98.2 F 85-114 18-20 126-158/72-93 97 neck supple -JVD heart S1/S2 regular lungs /crackles / occasional wheezing / decreased at left base abd soft ext no edema persistent lymphedema left arm CBC, BMP 10/13/17 06:30 10/11/17 06:00 CTA - negative Microbiology 10/10/17 13:40 Urine For Antigen Detection Legionella Antigen - Final 10/10/17 13:40 Urine For Antigen Detection Streptococcus pneumoniae Antigen (M - Final 10/05/17 21:45 Blood - Peripheral Venous Blood Culture - Final NO GROWTH AFTER 5 DAYS INCUBATION 10/05/17 21:15 Blood - Peripheral Venous Blood Culture - Final NO GROWTH AFTER 5 DAYS INCUBATION 10/06/17 13:10 Urine - Urine Clean Catch Urine Culture - Final NO GROWTH OBTAINED 10/06/17 11:00 Nasopharyngeal Swab Influenza Types A,B Antigen (LUIS M) - Final 10/06/17 11:00 Nasopharyngeal Swab - Final Active Medications Acetaminophen (Tylenol -) 650 mg PO Q4H PRN PRN Reason: FEVER Last Admin: 10/10/17 22:59 Dose: 650 mg Albuterol/Ipratropium (Duoneb -) 1 amp NEB Q4H PRN PRN Reason: SHORT OF BREATH/WHEEZING Last Admin: 10/10/17 07:45 Dose: 1 amp Albuterol/Ipratropium (Duoneb -) 1 amp NEB RQID [facility] Last Admin: 10/11/17 07:25 Dose: 1 amp Albuterol/Ipratropium (Duoneb -) 1 amp NEB Q4H PRN PRN Reason: SHORTNESS OF BREATH Atorvastatin Calcium (Lipitor -) 40 mg PO HS [facility] Last Admin: 10/10/17 22:48 Dose: 40 mg Budesonide (Pulmicort 0.5 Mg Nebulizer -) 1 amp NEB RBID [facility] Last Admin: 10/11/17 07:30 Dose: 1 amp Docusate Sodium (Colace -) 100 mg PO TID [facility] Last Admin: 10/11/17 06:32 Dose: 100 mg Ferrous Sulfate (Feosol -) 325 mg PO TIDCM [facility] Last Admin: 10/11/17 08:21 Dose: 325 mg Folic Acid (Folic Acid -) 1 mg PO DAILY [facility] Last Admin: 10/11/17 09:04 Dose: 1 mg Heparin Sodium (Porcine) (Heparin -) 5,000 unit SQ BID [facility] Last Admin: 10/11/17 09:04 Dose: 5,000 unit Cefepime HCl (Maxipime 1 Gm Premix Ivpb) 1 gm in 50 mls @ 100 mls/hr IVPB Q8H- IV [facility] Last Admin: 10/11/17 09:04 Dose: 100 mls/hr Azithromycin 500 mg/ Dextrose 250 mls @ 250 mls/hr IVPB DAILY [facility] Last Admin: 10/11/17 09:04 Dose: 250 mls/hr Insulin Aspart (Novolog Vial Sliding Scale -) 1 vial SQ ACHS [facility] PRN Reason: Protocol Last Admin: 10/11/17 10:57 Dose: Not Given Insulin Detemir (Levemir Vial) 10 units SQ BIDI [facility] Last Admin: 10/11/17 06:34 Dose: 10 units Levothyroxine Sodium (Synthroid -) 50 mcg PO DAILY@0700 [facility] Last Admin: 10/11/17 06:31 Dose: 50 mcg Mirtazapine (Remeron -) 15 mg PO HS [facility] Last Admin: 10/10/17 22:47 Dose: 15 mg Multivitamins/Minerals/Vitamin C (Tab-A-Vit -) 1 tab PO DAILY [facility] Last Admin: 10/11/17 09:04 Dose: 1 tab Pantoprazole Sodium (Protonix -) 40 mg PO DAILY [facility] Last Admin: 10/11/17 09:04 Dose: 40 mg Potassium Phos/Sodium Phos (Phos-Nak Packet -) 1 packet PO BID [facility] Last Admin: 10/11/17 09:04 Dose: 1 packet # Tachycardia aymptomatic now resolved # dyspnea echo reviewed 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 case discussed with pulmonary /Oncology nebulizer / inhaled steroids started Iv steroids --with improvement will start to taper antibiotics now completed anemia --w/u done - on supplements and Procrit # stage 4 Breast CA undergoing chemo -- last treatment approx 2 week ago consider anemia / cardiomyopathy / infections as treatable cause of dyspnea appreciate Oncology opinion Procrit -- as patient declines blood transfusion, ( "even if it cost me my life") # Diabetes Mellitis Diabetic diet / sliding scale last HgA1c 9.9 had been on steroids during chemo # anemia declines blood transfusion Fe / folic acid / mvi /procrit labs as needed # malnutrition Poor appetite low albumin # hypothyroid continue meds # depression discussed with niece can't sleep / overall poor outlook on plans started on remeron Problem List - Problems (1) Shortness of breath Code(s): R06.02 - SHORTNESS OF BREATH (2) Cardiomyopathy due to chemotherapy Code(s): I42.7 - CARDIOMYOPATHY DUE TO DRUG AND EXTERNAL AGENT; T45.1X5A - ADVERSE EFFECT OF ANTINEOPLASTIC AND IMMUNOSUP DRUGS, INIT (3) Cancer of left breast, stage 4 Code(s): C50.912 - MALIGNANT NEOPLASM OF UNSPECIFIED SITE OF LEFT FEMALE BREAST (4) Diabetes Code(s): E11.9 - TYPE 2 DIABETES MELLITUS WITHOUT COMPLICATIONS
[2017-10-15] MEDS: ATORVASTATIN CA 40 MG TABLET (FP) PO SCH (21:40)
[2017-10-15] MEDS: MIRTAZAPINE 15 MG TABLET (FP) PO SCH (21:40)
[2017-10-16] MEDS: methylPREDNISolone NA SUCC 40 MG/1 ML VIAL IVPUSH SCH ×3 (01:38→21:23)
[2017-10-16] MEDS: DOCUSATE SODIUM 100 MG CAPSULE (FP) PO SCH ×3 (05:45→21:21)
[2017-10-16] MEDS: INSULIN DETEMIR 100 UNITS/ML MDV SQ SCH ×2 (06:00→17:46)
[2017-10-16] MEDS: INSULIN SLIDING SCALE (NOVOLOG) 1 VIAL SQ SCH ×4 (06:01→21:21)
[2017-10-16] MEDS: LEVOTHYROXINE NA 50 MCG TABLET (FP) PO SCH (06:01)
[2017-10-16] MEDS: BUDESONIDE 0.5 MG/2 ML INH SUSP VIAL NEB SCH ×2 (07:30→20:50)
[2017-10-16] MEDS: PANTOPRAZOLE 40 MG TABLET (FP) PO SCH (09:34)
[2017-10-16] MEDS: NAPH,MB-DB/K PH,MBDB POWDER PACKET PO SCH ×2 (09:34→21:23)
[2017-10-16] MEDS: AMINO ACIDS/PROTEIN HYDROLYS 30 ML LIQUID.PKT PO SCH ×2 (09:34→17:47)
[2017-10-16] MEDS: MULTIVITAMINS (DAILY MVI) TABLET (FP) PO SCH (09:34)
[2017-10-16] MEDS: FOLIC ACID 1 MG TABLET (FP) PO SCH (09:34)
[2017-10-16] MEDS: HEPARIN NA (PORCINE) 5,000 UNITS/ML 1ML VIAL SQ SCH ×2 (09:34→21:21)
--- NOTE | 2017-10-16 11:35 | PN ---
Progress Note (short form) - Note Progress Note: PULMONARY Breathing continues to improve. +nonproductive cough also less. No fevers or chills. Last Vital Signs Temp Pulse Resp BP Pulse Ox 98.2 F 95 H 20 155/85 97 10/16/17 06:00 10/16/17 06:00 10/16/17 06:00 10/16/17 06:00 10/15/17 21:00 Gen: less tachypneic at rest Heart: RRR Lung: distant breath sounds, no rhonchi Abd: soft, nontender Ext: + edema CBC, BMP 10/15/17 06:45 10/15/17 06:45 Active Medications Acetaminophen (Tylenol -) 650 mg PO Q4H PRN PRN Reason: FEVER Last Admin: 10/11/17 12:49 Dose: 650 mg Albuterol/Ipratropium (Duoneb -) 1 amp NEB Q4H PRN PRN Reason: SHORT OF BREATH/WHEEZING Last Admin: 10/10/17 07:45 Dose: 1 amp Amino Acids (Prosource No Carb Liquid Pkt) 30 ml PO BID@0800,1730 [facility] Last Admin: 10/16/17 09:34 Dose: 30 ml Atorvastatin Calcium (Lipitor -) 40 mg PO HS [facility] Last Admin: 10/15/17 21:40 Dose: 40 mg Budesonide (Pulmicort 0.5 Mg Nebulizer -) 1 amp NEB RBID [facility] Last Admin: 10/16/17 07:30 Dose: 1 amp Cyanocobalamin (Vitamin B12 Injection -) 1,000 mcg IM Q7D@1000 [facility] Diltiazem HCl (Cardizem -) 30 mg PO QID PRN PRN Reason: TACHYCARDIA Last Admin: 10/14/17 17:06 Dose: 30 mg Docusate Sodium (Colace -) 100 mg PO TID [facility] Last Admin: 10/16/17 05:45 Dose: 100 mg Folic Acid (Folic Acid -) 1 mg PO DAILY [facility] Last Admin: 10/16/17 09:34 Dose: 1 mg Heparin Sodium (Porcine) (Heparin -) 5,000 unit SQ BID [facility] Last Admin: 10/16/17 09:34 Dose: 5,000 unit Insulin Aspart (Novolog Vial Sliding Scale -) 1 vial SQ ACHS [facility] PRN Reason: Protocol Last Admin: 10/16/17 06:01 Dose: 4 units Insulin Detemir (Levemir Vial) 10 units SQ BIDI [facility] Last Admin: 10/16/17 06:00 Dose: 10 units Levothyroxine Sodium (Synthroid -) 50 mcg PO DAILY@0700 [facility] Last Admin: 10/16/17 06:01 Dose: 50 mcg Methylprednisolone Sodium Succinate (Solu-Medrol -) 40 mg IVPUSH Q8H-IV [facility] Last Admin: 10/16/17 09:35 Dose: 40 mg Mirtazapine (Remeron -) 15 mg PO HS [facility] Last Admin: 10/15/17 21:40 Dose: 15 mg Multivitamins/Minerals/Vitamin C (Tab-A-Vit -) 1 tab PO DAILY [facility] Last Admin: 10/16/17 09:34 Dose: 1 tab Pantoprazole Sodium (Protonix -) 40 mg PO DAILY [facility] Last Admin: 10/16/17 09:34 Dose: 40 mg Potassium Phos/Sodium Phos (Phos-Nak Packet -) 1 packet PO BID [facility] Last Admin: 10/16/17 09:34 Dose: 1 packet A/P Radiation Pneumonitis Metastatic Breast Ca HTN Hyperlipidemia DM - will decrease medrol to 40mg q12h - inhaled bronchodilators as needed - O2 to keep SpO2 >90% - glucose control while on systemic steroids - PO as tolerated - DVT prophylaxis
--- NOTE | 2017-10-16 11:56 | PN ---
Progress Note, Physician Chief Complaint: sob History of Present Illness: sob much better she says no cp, palpit, syncope - Current Medication List Current Medications: Active Medications Acetaminophen (Tylenol -) 650 mg PO Q4H PRN PRN Reason: FEVER Last Admin: 10/11/17 12:49 Dose: 650 mg Albuterol/Ipratropium (Duoneb -) 1 amp NEB Q4H PRN PRN Reason: SHORT OF BREATH/WHEEZING Last Admin: 10/10/17 07:45 Dose: 1 amp Amino Acids (Prosource No Carb Liquid Pkt) 30 ml PO BID@0800,1730 [facility] Last Admin: 10/16/17 09:34 Dose: 30 ml Atorvastatin Calcium (Lipitor -) 40 mg PO HS [facility] Last Admin: 10/15/17 21:40 Dose: 40 mg Budesonide (Pulmicort 0.5 Mg Nebulizer -) 1 amp NEB RBID [facility] Last Admin: 10/16/17 07:30 Dose: 1 amp Cyanocobalamin (Vitamin B12 Injection -) 1,000 mcg IM Q7D@1000 [facility] Diltiazem HCl (Cardizem -) 30 mg PO QID PRN PRN Reason: TACHYCARDIA Last Admin: 10/14/17 17:06 Dose: 30 mg Docusate Sodium (Colace -) 100 mg PO TID [facility] Last Admin: 10/16/17 05:45 Dose: 100 mg Folic Acid (Folic Acid -) 1 mg PO DAILY [facility] Last Admin: 10/16/17 09:34 Dose: 1 mg Heparin Sodium (Porcine) (Heparin -) 5,000 unit SQ BID [facility] Last Admin: 10/16/17 09:34 Dose: 5,000 unit Insulin Aspart (Novolog Vial Sliding Scale -) 1 vial SQ ACHS [facility] PRN Reason: Protocol Last Admin: 10/16/17 06:01 Dose: 4 units Insulin Detemir (Levemir Vial) 10 units SQ BIDI [facility] Last Admin: 10/16/17 06:00 Dose: 10 units Levothyroxine Sodium (Synthroid -) 50 mcg PO DAILY@0700 [facility] Last Admin: 10/16/17 06:01 Dose: 50 mcg Methylprednisolone Sodium Succinate (Solu-Medrol -) 40 mg IVPUSH Q12H [facility] Mirtazapine (Remeron -) 15 mg PO [facility] Last Admin: 10/15/17 21:40 Dose: 15 mg Multivitamins/Minerals/Vitamin C (Tab-A-Vit -) 1 tab PO DAILY [facility] Last Admin: 10/16/17 09:34 Dose: 1 tab Pantoprazole Sodium (Protonix -) 40 mg PO DAILY [facility] Last Admin: 10/16/17 09:34 Dose: 40 mg Potassium Phos/Sodium Phos (Phos-Nak Packet -) 1 packet PO BID [facility] Last Admin: 10/16/17 09:34 Dose: 1 packet - Objective Vital Signs: Vital Signs Temperature 98.2 F 10/16/17 06:00 Pulse Rate 95 H 10/16/17 06:00 Respiratory Rate 20 10/16/17 06:00 Blood Pressure 155/85 10/16/17 06:00 O2 Sat by Pulse Oximetry (%) 97 10/15/17 21:00 Constitutional: Yes: Well Nourished, No Distress, Calm Cardiovascular: Yes: Regular Rate and Rhythm, S1, S2. No: Gallop, Murmur Respiratory: Yes: Regular, Rales (very faint rales at bases/mid). No: Accessory Muscle Use, Wheezes Extremities: No: Cold Edema: No Neurological: Yes: Alert. No: Seizure Psychiatric: No: Agitated Labs: CBC, BMP 10/15/17 06:45 10/15/17 06:45 INR, PTT INR 1.12 (0.82-1.09) 10/05/17 17:48 Assessment/Plan rpt ECG 10/14: sinus tach 105 bpm, LAFB, old AWMI with TWI v2-- no change vs 10/12, 10/06 cxr 10/12: left hemidiaphragm elevation with shallow inspiration resulting in accentuated pulmonary vasculature. no chf. cxr 10/08: images, report reviewed. progressive pulmonary changes bilaterally. also with cephalization pattern likely, ? L effusion CTA chest 10/05: no PE. fibrotic changes/pleural thickening L apex. L base ATX. no congestion, effusions. ? bony met.s Echo 09/2017: tds. grossly nl lv fn. impaired relaxation. grossly nl rv size/ fn. mv not well visualized. no pericardial effusion mibi 04/2017: no ecg changes with exercise, nl mpi, lvef 47% LUE dopplers neg for dvt a/p: 67 f hx metastatic breast ca on chemo, hld, dm, htn, here with 1 week sob/ teresa. sinus tach - suspect sec to acute radiation pneumonitis +/- IV steroids. - CXR 10/14 image reviewed: no cephalization, ? small L effusion, faint interstitial prominence--no change vs prior - she will likely tolerate sinus tach intermittently, as she has had no CHF here. HR much improved (prn low dose diltiazem as ordered) radiation pneumonitis (sob, fever)/transient worsened diffuse interstitial infiltrates on CXR 10/09--improved, stage 4 breast Ca: -no signs chf on exam or ct chest, bnp <100. received brief IV lasix following acute CXR changes here, now off -no signs acs -likely no chf component here (suspect transient incr'd interstitial infiltrates were part of pneumonitis, dropped BP after IVP lasix) -echo unremarkable. -abx per ID, steroid taper per pulm -sob currently is improving, and she is clinically stable -low threshold for prn lasix 20-40mg IV if worsening sob or incr infiltrates on cxr anemia: - declines blood transfusions. - heme now following, pt on procrit htn: -lisinopril held here for low bp trend -bp controlled, cont to observe hld: -cont statin
[2017-10-16] MEDS: IRON SUCROSE INJECTION 100 MG in SODIUM CHLORIDE 95 ML IVPB SCH (13:25)
--- NOTE | 2017-10-16 19:30 | PN ---
Progress Note (short form) - Note Progress Note: PAtient seen and examined c/o constipation. c/o worsening LUE edema Last Vital Signs Temp Pulse Resp BP Pulse Ox 97.3 F L 92 H 20 153/79 97 10/16/17 17:40 10/16/17 17:40 10/16/17 17:40 10/16/17 17:40 10/15/17 21:00 Cor: RSR, No murmurs, No gallops Lungs: Clear to P&A Abd: Soft, Normal bowel sounds, No organomegaly Ext:LUE edema worsening Active Medications Generic Name Dose Route Start Last Admin Trade Name Freq PRN Reason Stop Dose Admin Acetaminophen 650 mg 10/06/17 00:05 10/11/17 12:49 Tylenol - PO 650 mg Q4H PRN Administration FEVER Albuterol/Ipratropium 1 amp 10/10/17 03:12 10/10/17 07:45 Duoneb - NEB 1 amp Q4H PRN Administration SHORT OF BREATH/WHEEZING Amino Acids 30 ml 10/11/17 17:30 10/16/17 17:47 Prosource No Carb Liquid Pkt PO 30 ml BID@0800,1730 [facility] Administration Atorvastatin Calcium 40 mg 10/06/17 22:00 10/15/17 21:40 Lipitor - PO 40 mg HS [facility] Administration Budesonide 1 amp 10/10/17 20:00 10/16/17 07:30 Pulmicort 0.5 Mg Nebulizer - NEB 1 amp RBID [facility] Administration Cyanocobalamin 1,000 mcg 10/18/17 10:00 Vitamin B12 Injection - IM Q7D@1000 [facility] Diltiazem HCl 30 mg 10/14/17 12:31 10/14/17 17:06 Cardizem - PO 30 mg QID PRN Administration TACHYCARDIA Docusate Sodium 100 mg 10/07/17 14:45 10/16/17 13:25 Colace - PO 100 mg TID [facility] Administration Folic Acid 1 mg 10/07/17 14:45 10/16/17 09:34 Folic Acid - PO 1 mg DAILY [facility] Administration Heparin Sodium (Porcine) 5,000 unit 10/06/17 10:00 10/16/17 09:34 Heparin - SQ 5,000 unit BID [facility] Administration Insulin Aspart 1 vial 10/06/17 16:30 10/16/17 17:46 Novolog Vial Sliding Scale - SQ 6 units ACHS [facility] Administration Protocol Insulin Detemir 10 units 10/06/17 07:00 10/16/17 17:46 Levemir Vial SQ 10 units BIDI [facility] Administration Levothyroxine Sodium 50 mcg 10/06/17 07:00 10/16/17 06:01 Synthroid - PO 50 mcg DAILY@0700 [facility] Administration Methylprednisolone Sodium Succinate 40 mg 10/16/17 22:00 Solu-Medrol - IVPUSH Q12H [facility] Mirtazapine 15 mg 10/10/17 22:00 10/15/17 21:40 Remeron - PO 15 mg HS [facility] Administration Multivitamins/Minerals/Vitamin C 1 tab 10/10/17 17:45 10/16/17 09:34 Tab-A-Vit - PO 1 tab DAILY [facility] Administration Pantoprazole Sodium 40 mg 10/10/17 11:00 10/16/17 09:34 Protonix - PO 40 mg DAILY [facility] Administration Potassium Phos/Sodium Phos 1 packet 10/07/17 14:00 10/16/17 09:34 Phos-Nak Packet - PO 1 packet BID [facility] Administration A/P Stage IV Breast ca (triple positive, metastatic, on TPH ) , is on active systemic chemotherapy , last was on 10/05 , Oncologist: Dr.Avi Dallas in the [place]. anemia in a [place] Fever SOB Lymphedema LUE Right midcephalic vein superficial vein thrombosis No evidence of DVT chemotherapy induced anemia s/p 5 days IV iron/procrit On B12/folate Recheck CBC
[2017-10-16] MEDS ORDERED: INSULIN (NOVOLOG) ASPART 100 UNITS/ML 10ML VIAL ONE (20:45)
[2017-10-16] MEDS ORDERED: INSULIN DETEMIR 100 UNITS/ML MDV SQ ONE (20:46)
[2017-10-16] MEDS: ATORVASTATIN CA 40 MG TABLET (FP) PO SCH (21:21)
[2017-10-16] MEDS: MIRTAZAPINE 15 MG TABLET (FP) PO SCH (21:21)
--- NOTE | 2017-10-16 23:12 | PN ---
Progress Note (short form) - Note Progress Note: sitting upin bed reports getting better - able to walk to bathroom with less dyspnea seems in better spirits Vital Signs Period Temp Pulse Resp BP Sys/Cortez Pulse Ox Last 24 Hr 97.5 F-98.2 F 85-114 18-20 126-158/72-93 97 neck supple -JVD heart S1/S2 regular lungs / no wheezing / decreased at left base abd soft ext no edema persistent lymphedema left arm CBC, BMP 10/13/17 06:30 10/11/17 06:00 CTA - negative Microbiology 10/10/17 13:40 Urine For Antigen Detection Legionella Antigen - Final 10/10/17 13:40 Urine For Antigen Detection Streptococcus pneumoniae Antigen (M - Final 10/05/17 21:45 Blood - Peripheral Venous Blood Culture - Final NO GROWTH AFTER 5 DAYS INCUBATION 10/05/17 21:15 Blood - Peripheral Venous Blood Culture - Final NO GROWTH AFTER 5 DAYS INCUBATION 10/06/17 13:10 Urine - Urine Clean Catch Urine Culture - Final NO GROWTH OBTAINED 10/06/17 11:00 Nasopharyngeal Swab Influenza Types A,B Antigen (LUIS M) - Final 10/06/17 11:00 Nasopharyngeal Swab - Final Active Medications Acetaminophen (Tylenol -) 650 mg PO Q4H PRN PRN Reason: FEVER Last Admin: 10/10/17 22:59 Dose: 650 mg Albuterol/Ipratropium (Duoneb -) 1 amp NEB Q4H PRN PRN Reason: SHORT OF BREATH/WHEEZING Last Admin: 10/10/17 07:45 Dose: 1 amp Albuterol/Ipratropium (Duoneb -) 1 amp NEB RQID [facility] Last Admin: 10/11/17 07:25 Dose: 1 amp Albuterol/Ipratropium (Duoneb -) 1 amp NEB Q4H PRN PRN Reason: SHORTNESS OF BREATH Atorvastatin Calcium (Lipitor -) 40 mg PO HS [facility] Last Admin: 10/10/17 22:48 Dose: 40 mg Budesonide (Pulmicort 0.5 Mg Nebulizer -) 1 amp NEB RBID [facility] Last Admin: 10/11/17 07:30 Dose: 1 amp Docusate Sodium (Colace -) 100 mg PO TID [facility] Last Admin: 10/11/17 06:32 Dose: 100 mg Ferrous Sulfate (Feosol -) 325 mg PO TIDCM [facility] Last Admin: 10/11/17 08:21 Dose: 325 mg Folic Acid (Folic Acid -) 1 mg PO DAILY [facility] Last Admin: 10/11/17 09:04 Dose: 1 mg Heparin Sodium (Porcine) (Heparin -) 5,000 unit SQ BID [facility] Last Admin: 10/11/17 09:04 Dose: 5,000 unit Cefepime HCl (Maxipime 1 Gm Premix Ivpb) 1 gm in 50 mls @ 100 mls/hr IVPB Q8H- IV [facility] Last Admin: 10/11/17 09:04 Dose: 100 mls/hr Azithromycin 500 mg/ Dextrose 250 mls @ 250 mls/hr IVPB DAILY [facility] Last Admin: 10/11/17 09:04 Dose: 250 mls/hr Insulin Aspart (Novolog Vial Sliding Scale -) 1 vial SQ ACHS [facility] PRN Reason: Protocol Last Admin: 10/11/17 10:57 Dose: Not Given Insulin Detemir (Levemir Vial) 10 units SQ BIDI [facility] Last Admin: 10/11/17 06:34 Dose: 10 units Levothyroxine Sodium (Synthroid -) 50 mcg PO DAILY@0700 [facility] Last Admin: 10/11/17 06:31 Dose: 50 mcg Mirtazapine (Remeron -) 15 mg PO HS [facility] Last Admin: 10/10/17 22:47 Dose: 15 mg Multivitamins/Minerals/Vitamin C (Tab-A-Vit -) 1 tab PO DAILY [facility] Last Admin: 10/11/17 09:04 Dose: 1 tab Pantoprazole Sodium (Protonix -) 40 mg PO DAILY [facility] Last Admin: 10/11/17 09:04 Dose: 40 mg Potassium Phos/Sodium Phos (Phos-Nak Packet -) 1 packet PO BID [facility] Last Admin: 10/11/17 09:04 Dose: 1 packet # Tachycardia aymptomatic now resolved CCB prn # dyspnea 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 nebulizer / inhaled steroids started Iv steroids --with improvement will start to taper antibiotics now completed anemia --w/u done - on supplements and Procrit # stage 4 Breast CA undergoing chemo -- last treatment approx 2 week ago Procrit -- as patient declines blood transfusion, ( "even if it cost me my life") # Diabetes Mellitis Diabetic diet / sliding scale last HgA1c 9.9 had been on steroids during chemo # anemia declines blood transfusion Fe / folic acid / mvi /procrit labs as needed # malnutrition Poor appetite low albumin ON proform # hypothyroid continue meds # depression discussed with niece can't sleep / overall poor outlook on plans started on remeron Problem List - Problems (1) Shortness of breath Code(s): R06.02 - SHORTNESS OF BREATH (2) Cardiomyopathy due to chemotherapy Code(s): I42.7 - CARDIOMYOPATHY DUE TO DRUG AND EXTERNAL AGENT; T45.1X5A - ADVERSE EFFECT OF ANTINEOPLASTIC AND IMMUNOSUP DRUGS, INIT (3) Cancer of left breast, stage 4 Code(s): C50.912 - MALIGNANT NEOPLASM OF UNSPECIFIED SITE OF LEFT FEMALE BREAST (4) Diabetes Code(s): E11.9 - TYPE 2 DIABETES MELLITUS WITHOUT COMPLICATIONS
[2017-10-17] MEDS: INSULIN SLIDING SCALE (NOVOLOG) 1 VIAL SQ SCH ×4 (06:17→21:01)
[2017-10-17] MEDS: LEVOTHYROXINE NA 50 MCG TABLET (FP) PO SCH (06:17)
[2017-10-17] MEDS: DOCUSATE SODIUM 100 MG CAPSULE (FP) PO SCH ×3 (06:17→21:02)
[2017-10-17] MEDS: INSULIN DETEMIR 100 UNITS/ML MDV SQ SCH ×2 (06:18→17:17)
[2017-10-17] MEDS ORDERED: INSULIN (NOVOLOG) ASPART 100 UNITS/ML 10ML VIAL ONE ×3 (06:53→17:15)
[2017-10-17] MEDS ORDERED: INSULIN DETEMIR 100 UNITS/ML MDV SQ ONE (06:54)
[2017-10-17 07:52] LABS: ALBUMIN 2.3 g/dl (3.4-5.0); ANION GAP 6 (8-16); BLOOD UREA NITROGEN 36 mg/dL (7-18); CALCIUM 9.1 mg/dL (8.5-10.1); CHLORIDE 103 mmol/L (98-107); CO2 31 mmol/L (21-32); CREATININE 0.9 mg/dL (0.55-1.02); GLUCOSE,RANDOM 236 mg/dL (74-106); POTASSIUM 4.6 mmol/L (3.5-5.1); SGPT/ALT 24 U/L (12-78); SODIUM 140 mmol/L (136-145)
[2017-10-17 07:56] LABS: ALK PHOS 93 U/L (45-117); BILIRUBIN,TOTAL 0.3 mg/dL (0.2-1.0); SGOT/AST 22 U/L (15-37); TOT PROT 5.4 g/dl (6.4-8.2)
[2017-10-17 08:12] LABS: HEMATOCRIT 26.6 % (32.4-45.2); HEMOGLOBIN 8.4 GM/dL (10.7-15.3); MCH 27.6 pg (25.7-33.7); MCHC 31.4 g/dl (32.0-36.0); MEAN CELL VOLUME 87.9 fl (80-96); MEAN PLT VOLUME 7.5 fl (7.5-11.1); PLATELET COUNT 659 K/MM3 (134-434); RBC 3.02 M/mm3 (3.60-5.2); RDW 19.8 % (11.6-15.6)
[2017-10-17 09:22] LABS: WHITE BLOOD COUNT 27.3 K/mm3 (4.0-10.0)
[2017-10-17 09:23] LABS: ANISOCYTOSIS 2+; CORRECTED WBC 23.53 K/mm3; MACROCYTOSIS 2+; PLATELET ESTIMATE INCREASED; TEAR DROP CELLS 1+
[2017-10-17] MEDS ORDERED: PT OWN MED DRAWER 7, Y5N ONE ×2 (09:31→21:03)
[2017-10-17] MEDS: AMINO ACIDS/PROTEIN HYDROLYS 30 ML LIQUID.PKT PO SCH ×2 (09:36→17:17)
[2017-10-17] MEDS: MULTIVITAMINS (DAILY MVI) TABLET (FP) PO SCH (09:36)
[2017-10-17] MEDS: HEPARIN NA (PORCINE) 5,000 UNITS/ML 1ML VIAL SQ SCH ×2 (09:36→21:01)
[2017-10-17] MEDS: PANTOPRAZOLE 40 MG TABLET (FP) PO SCH (09:36)
[2017-10-17] MEDS: FOLIC ACID 1 MG TABLET (FP) PO SCH (09:36)
[2017-10-17] MEDS: methylPREDNISolone NA SUCC 40 MG/1 ML VIAL IVPUSH SCH ×2 (09:36→21:01)
[2017-10-17] MEDS: NAPH,MB-DB/K PH,MBDB POWDER PACKET PO SCH ×2 (09:36→21:02)
--- NOTE | 2017-10-17 12:09 | PN ---
Progress Note (short form) - Note Progress Note: Patient seen and examined continues to improve no further fevers. O/E: Constitutional: Yes: Calm, Mild Distress Eyes: Yes: Conjunctiva Clear HENT: Yes: Atraumatic, Normocephalic Neck: Yes: Supple, Trachea Midline Cardiovascular: Yes: Regular Rate and Rhythm Respiratory: Yes: Regular, Diminished Gastrointestinal: Yes: Normal Bowel Sounds Breast(s): Yes: Breast Implants Extremities: Yes: WNL Edema: LUE: 2+ Neurological: Yes: Alert, Oriented Last Vital Signs Temp Pulse Resp BP Pulse Ox 98.4 F 126 H 20 103/58 96 10/12/17 10:00 10/12/17 09:17 10/12/17 09:17 10/12/17 09:17 10/11/17 21:00 CBC, BMP 10/11/17 06:00 Current Medications Generic Name Dose Route Start Last Admin Trade Name Freq PRN Reason Stop Dose Admin Acetaminophen 650 mg 10/06/17 00:05 10/11/17 12:49 Tylenol - PO 650 mg Q4H PRN Administration FEVER Albuterol/Ipratropium 1 amp 10/10/17 03:12 10/10/17 07:45 Duoneb - NEB 1 amp Q4H PRN Administration SHORT OF BREATH/WHEEZING Albuterol/Ipratropium 1 amp 10/10/17 12:00 10/12/17 11:07 Duoneb - NEB 1 amp RQID [facility] Administration Amino Acids 30 ml 10/11/17 17:30 10/12/17 09:22 Prosource No Carb Liquid Pkt PO 30 ml BID@0800,1730 [facility] Administration Atorvastatin Calcium 40 mg 10/06/17 22:00 10/11/17 21:07 Lipitor - PO 40 mg HS [facility] Administration Budesonide 1 amp 10/10/17 20:00 10/12/17 07:27 Pulmicort 0.5 Mg Nebulizer - NEB 1 amp RBID [facility] Administration Cyanocobalamin 1,000 mcg 10/18/17 10:00 Vitamin B12 Injection - IM Q7D@1000 [facility] Docusate Sodium 100 mg 10/07/17 14:45 10/12/17 06:03 Colace - PO Not Given TID [facility] Epoetin Emerson 20,000 unit 10/11/17 18:00 10/12/17 09:27 Procrit - SQ 10/15/17 10:01 20,000 unit DAILY [facility] Administration Ferrous Sulfate 325 mg 10/07/17 17:30 10/12/17 11:53 Feosol - PO 325 mg TIDCM [facility] Administration Folic Acid 1 mg 10/07/17 14:45 10/12/17 09:23 Folic Acid - PO 1 mg DAILY [facility] Administration Heparin Sodium (Porcine) 5,000 unit 10/06/17 10:00 10/12/17 09:23 Heparin - SQ 5,000 unit BID [facility] Administration Vancomycin HCl 1,000 mg/ 250 mls @ 250 mls/hr 10/12/17 06:00 10/12/17 06:03 Dextrose IVPB 250 mls/hr Q12H [facility] Administration Iron Sucrose 100 mg/ Sodium 100 mls @ 200 mls/hr 10/12/17 18:15 Chloride IVPB 10/16/17 10:29 DAILY [facility] Insulin Aspart 1 vial 10/06/17 16:30 10/12/17 11:53 Novolog Vial Sliding Scale - SQ 8 units ACHS [facility] Administration Protocol Insulin Detemir 10 units 10/06/17 07:00 10/12/17 06:22 Levemir Vial SQ 10 units BIDI [facility] Administration Levothyroxine Sodium 50 mcg 10/06/17 07:00 10/12/17 06:03 Synthroid - PO 50 mcg DAILY@0700 [facility] Administration Methylprednisolone Sodium Succinate 60 mg 10/12/17 10:30 Solu-Medrol - IVPUSH Q8H-IV [facility] Mirtazapine 15 mg 10/10/17 22:00 10/11/17 21:07 Remeron - PO 15 mg HS [facility] Administration Multivitamins/Minerals/Vitamin C 1 tab 10/10/17 17:45 10/12/17 09:23 Tab-A-Vit - PO 1 tab DAILY [facility] Administration Pantoprazole Sodium 40 mg 10/10/17 11:00 10/12/17 09:23 Protonix - PO 40 mg DAILY [facility] Administration Potassium Phos/Sodium Phos 1 packet 10/07/17 14:00 10/12/17 09:24 Phos-Nak Packet - PO 1 packet BID [facility] Administration Stage IV Breast ca (triple positive, metastatic, well CR on TPH ) , is on active systemic chemotherapy , last was on 10/05 , Oncologist: Dr.Avi Dallas in the [place]. anemia in a [place] Fever SOB Lymphedema LUE continues to improve clinically. limit blood draws. to use pediatric tubes when blood is drawn. c/w epogen [id number] x5 days along with daily venofer.x5 [id number] weekly. MVI. (s/p 5D) no DVT in the LUE Superficial VT in the RUE, monitor. no DVT CBC with nRBC in the setting of procrit usage. PT eval
[2017-10-17] MEDS: BUDESONIDE 0.5 MG/2 ML INH SUSP VIAL NEB SCH (20:15)
[2017-10-17] MEDS: ATORVASTATIN CA 40 MG TABLET (FP) PO SCH (21:02)
[2017-10-17] MEDS: MIRTAZAPINE 15 MG TABLET (FP) PO SCH (21:03)
[2017-10-18] MEDS: INSULIN SLIDING SCALE (NOVOLOG) 1 VIAL SQ SCH ×4 (06:30→21:41)
[2017-10-18] MEDS: LEVOTHYROXINE NA 50 MCG TABLET (FP) PO SCH (06:30)
[2017-10-18] MEDS: DOCUSATE SODIUM 100 MG CAPSULE (FP) PO SCH ×3 (06:30→21:40)
[2017-10-18] MEDS: INSULIN DETEMIR 100 UNITS/ML MDV SQ SCH ×2 (06:31→16:24)
[2017-10-18] MEDS: ALBUTEROL SO4 2.5/IPRATROPIUM 0.5 INH SOL 3 ML VIAL.NEB. NEB PRN (07:45)
[2017-10-18] MEDS: BUDESONIDE 0.5 MG/2 ML INH SUSP VIAL NEB SCH ×2 (07:50→21:30)
[2017-10-18] MEDS ORDERED: PT OWN MED DRAWER 7, Y5N ONE (09:53)
[2017-10-18] MEDS: methylPREDNISolone NA SUCC 40 MG/1 ML VIAL IVPUSH SCH ×2 (09:58→21:41)
[2017-10-18] MEDS ORDERED: CYANOCOBALAMIN (VITAMIN B-12) 1000 MCG/1 ML VIAL IM SCH (10:00)
[2017-10-18] MEDS: AMINO ACIDS/PROTEIN HYDROLYS 30 ML LIQUID.PKT PO SCH ×2 (10:00→16:49)
[2017-10-18] MEDS: FOLIC ACID 1 MG TABLET (FP) PO SCH (10:07)
[2017-10-18] MEDS: HEPARIN NA (PORCINE) 5,000 UNITS/ML 1ML VIAL SQ SCH ×2 (10:07→21:40)
[2017-10-18] MEDS: MULTIVITAMINS (DAILY MVI) TABLET (FP) PO SCH (10:08)
[2017-10-18] MEDS: NAPH,MB-DB/K PH,MBDB POWDER PACKET PO SCH (10:08)
[2017-10-18] MEDS: PANTOPRAZOLE 40 MG TABLET (FP) PO SCH (10:08)
--- NOTE | 2017-10-18 16:08 | PN ---
Progress Note, Physician History of Present Illness: pulmonary alert,comfortable,sob improving - Current Medication List Current Medications: Active Medications Acetaminophen (Tylenol -) 650 mg PO Q4H PRN PRN Reason: FEVER Last Admin: 10/11/17 12:49 Dose: 650 mg Albuterol/Ipratropium (Duoneb -) 1 amp NEB Q4H PRN PRN Reason: SHORT OF BREATH/WHEEZING Last Admin: 10/18/17 07:45 Dose: 1 amp Amino Acids (Prosource No Carb Liquid Pkt) 30 ml PO BID@0800,1730 [facility] Last Admin: 10/18/17 10:00 Dose: 30 ml Atorvastatin Calcium (Lipitor -) 40 mg PO HS [facility] Last Admin: 10/17/17 21:02 Dose: 40 mg Budesonide (Pulmicort 0.5 Mg Nebulizer -) 1 amp NEB RBID [facility] Last Admin: 10/18/17 07:50 Dose: 1 amp Cyanocobalamin (Vitamin B12 Injection -) 1,000 mcg IM Q7D@1000 [facility] Last Admin: 10/18/17 10:08 Dose: 1,000 mcg Diltiazem HCl (Cardizem -) 30 mg PO QID PRN PRN Reason: TACHYCARDIA Last Admin: 10/14/17 17:06 Dose: 30 mg Docusate Sodium (Colace -) 100 mg PO TID [facility] Last Admin: 10/18/17 06:30 Dose: 100 mg Folic Acid (Folic Acid -) 1 mg PO DAILY [facility] Last Admin: 10/18/17 10:07 Dose: 1 mg Heparin Sodium (Porcine) (Heparin -) 5,000 unit SQ BID [facility] Last Admin: 10/18/17 10:07 Dose: 5,000 unit Insulin Aspart (Novolog Vial Sliding Scale -) 1 vial SQ ACHS [facility] PRN Reason: Protocol Last Admin: 10/18/17 11:11 Dose: Not Given Insulin Detemir (Levemir Vial) 10 units SQ BIDI [facility] Last Admin: 10/18/17 06:31 Dose: 10 units Levothyroxine Sodium (Synthroid -) 50 mcg PO DAILY@0700 [facility] Last Admin: 10/18/17 06:30 Dose: 50 mcg Methylprednisolone Sodium Succinate (Solu-Medrol -) 40 mg IVPUSH Q12H [facility] Last Admin: 10/18/17 09:58 Dose: 40 mg Mirtazapine (Remeron -) 15 mg PO HS [facility] Last Admin: 10/17/17 21:03 Dose: 15 mg Multivitamins/Minerals/Vitamin C (Tab-A-Vit -) 1 tab PO DAILY [facility] Last Admin: 10/18/17 10:08 Dose: 1 tab Pantoprazole Sodium (Protonix -) 40 mg PO DAILY [facility] Last Admin: 10/18/17 10:08 Dose: 40 mg Potassium Phos/Sodium Phos (Phos-Nak Packet -) 1 packet PO BID [facility] Last Admin: 10/18/17 10:08 Dose: 1 packet - Objective Vital Signs: Vital Signs Temperature 98.1 F 10/18/17 14:49 Pulse Rate 108 H 10/18/17 14:49 Respiratory Rate 20 10/18/17 14:49 Blood Pressure 143/82 10/18/17 14:49 O2 Sat by Pulse Oximetry (%) 99 10/18/17 09:00 Constitutional: Yes: Well Nourished, Calm Eyes: Yes: WNL HENT: Yes: WNL Neck: Yes: WNL Cardiovascular: Yes: Regular Rate and Rhythm, S1, S2 Respiratory: Yes: Rhonchi (few rhonchi) Gastrointestinal: Yes: Normal Bowel Sounds, Soft Extremities: Yes: WNL Edema: Yes Labs: CBC, BMP Problem List - Problems (1) Cancer of left breast, stage 4 Code(s): C50.912 - MALIGNANT NEOPLASM OF UNSPECIFIED SITE OF LEFT FEMALE BREAST (2) Cardiomyopathy due to chemotherapy Code(s): I42.7 - CARDIOMYOPATHY DUE TO DRUG AND EXTERNAL AGENT; T45.1X5A - ADVERSE EFFECT OF ANTINEOPLASTIC AND IMMUNOSUP DRUGS, INIT (3) Diabetes Code(s): E11.9 - TYPE 2 DIABETES MELLITUS WITHOUT COMPLICATIONS (4) Radiation pneumonitis Code(s): J70.0 - ACUTE PULMONARY MANIFESTATIONS DUE TO RADIATION (5) Shortness of breath Code(s): R06.02 - SHORTNESS OF BREATH Assessment/Plan A/P Radiation Pneumonitis Metastatic Breast Ca HTN Hyperlipidemia DM - medrol - inhaled bronchodilators as needed - O2 to keep SpO2 >90% - glucose control while on systemic steroids - PO as tolerated - DVT prophylaxis DR GRADY
[2017-10-18] MEDS ORDERED: INSULIN (NOVOLOG) ASPART 100 UNITS/ML 10ML VIAL ONE ×2 (16:42→21:19)
--- NOTE | 2017-10-18 16:43 | PN ---
Progress Note (short form) - Note Progress Note: 67 year old female found sitting in bed.States feels a little better. Nasal O2 in place.to Vital Signs Period Temp Pulse Resp BP Sys/Cortez Pulse Ox Last 24 Hr 97.7 F-98.1 F 95-108 20-22 117-146/61-84 96-99 HEENT-NL Neck-supple Lungs- Clear bilaterally to auscultation Heart-s1/s2 Abd-soft,NT Ext- Neg LE CBC, BMP 10/17/17 06:00 10/17/17 06:00 Active Medications Acetaminophen (Tylenol -) 650 mg PO Q4H PRN PRN Reason: FEVER Last Admin: 10/11/17 12:49 Dose: 650 mg Albuterol/Ipratropium (Duoneb -) 1 amp NEB Q4H PRN PRN Reason: SHORT OF BREATH/WHEEZING Last Admin: 10/18/17 07:45 Dose: 1 amp Amino Acids (Prosource No Carb Liquid Pkt) 30 ml PO BID@0800,1730 [facility] Last Admin: 10/18/17 10:00 Dose: 30 ml Atorvastatin Calcium (Lipitor -) 40 mg PO HS [facility] Last Admin: 10/17/17 21:02 Dose: 40 mg Budesonide (Pulmicort 0.5 Mg Nebulizer -) 1 amp NEB RBID [facility] Last Admin: 10/18/17 07:50 Dose: 1 amp Cyanocobalamin (Vitamin B12 Injection -) 1,000 mcg IM Q7D@1000 [facility] Last Admin: 10/18/17 10:08 Dose: 1,000 mcg Diltiazem HCl (Cardizem -) 30 mg PO QID PRN PRN Reason: TACHYCARDIA Last Admin: 10/14/17 17:06 Dose: 30 mg Docusate Sodium (Colace -) 100 mg PO TID [facility] Last Admin: 10/18/17 06:30 Dose: 100 mg Folic Acid (Folic Acid -) 1 mg PO DAILY [facility] Last Admin: 10/18/17 10:07 Dose: 1 mg Heparin Sodium (Porcine) (Heparin -) 5,000 unit SQ BID [facility] Last Admin: 10/18/17 10:07 Dose: 5,000 unit Insulin Aspart (Novolog Vial Sliding Scale -) 1 vial SQ ACHS [facility] PRN Reason: Protocol Last Admin: 10/18/17 11:11 Dose: Not Given Insulin Detemir (Levemir Vial) 10 units SQ BIDI [facility] Last Admin: 10/18/17 06:31 Dose: 10 units Levothyroxine Sodium (Synthroid -) 50 mcg PO DAILY@0700 [facility] Last Admin: 10/18/17 06:30 Dose: 50 mcg Methylprednisolone Sodium Succinate (Solu-Medrol -) 40 mg IVPUSH Q12H [facility] Last Admin: 10/18/17 09:58 Dose: 40 mg Mirtazapine (Remeron -) 15 mg PO HS [facility] Last Admin: 10/17/17 21:03 Dose: 15 mg Multivitamins/Minerals/Vitamin C (Tab-A-Vit -) 1 tab PO DAILY [facility] Last Admin: 10/18/17 10:08 Dose: 1 tab Pantoprazole Sodium (Protonix -) 40 mg PO DAILY [facility] Last Admin: 10/18/17 10:08 Dose: 40 mg Potassium Phos/Sodium Phos (Phos-Nak Packet -) 1 packet PO BID [facility] Last Admin: 10/18/17 10:08 Dose: 1 packet # Tachycardia aymptomatic # dyspnea On exertion 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 nebulizer / inhaled steroids anemia --w/u done - on supplements and Procrit # stage 4 Breast CA undergoing chemo -- last treatment approx 2 week ago # Diabetes Mellitis Diabetic diet / sliding scale last HgA1c 9.9 had been on steroids during chemo # anemia declines blood transfusion Procrit -- as patient declines blood transfusion, ( "even if it cost me my life") Fe / folic acid / mvi labs as needed # malnutrition Poor appetite low albumin ON proform # hypothyroidism continue Levothyroxine 50 mcg # depression Remeron 15 mg started Problem List - Problems (1) Shortness of breath Code(s): R06.02 - SHORTNESS OF BREATH (2) Cardiomyopathy due to chemotherapy Code(s): I42.7 - CARDIOMYOPATHY DUE TO DRUG AND EXTERNAL AGENT; T45.1X5A - ADVERSE EFFECT OF ANTINEOPLASTIC AND IMMUNOSUP DRUGS, INIT (3) Cancer of left breast, stage 4 Code(s): C50.912 - MALIGNANT NEOPLASM OF UNSPECIFIED SITE OF LEFT FEMALE BREAST (4) Diabetes Code(s): E11.9 - TYPE 2 DIABETES MELLITUS WITHOUT COMPLICATIONS
[2017-10-18] MEDS ORDERED: INSULIN (NOVOLOG) ASPART 100 UNITS/ML 10ML VIAL SQ ONE (19:15)
[2017-10-18] MEDS ORDERED: INSULIN DETEMIR 100 UNITS/ML MDV SQ ONE (21:19)
--- NOTE | 2017-10-18 21:19 | PN ---
Progress Note (short form) - Note Progress Note: Chief Complaint: sob History of Present Illness: sob remains improved. fatigue/energy improved. cough resolved. no cp, palpit, syncope Current Medications Acetaminophen (Tylenol -) 650 mg PO Q4H PRN PRN Reason: FEVER Last Admin: 10/11/17 12:49 Dose: 650 mg Albuterol/Ipratropium (Duoneb -) 1 amp NEB Q4H PRN PRN Reason: SHORT OF BREATH/WHEEZING Last Admin: 10/18/17 07:45 Dose: 1 amp Amino Acids (Prosource No Carb Liquid Pkt) 30 ml PO BID@0800,1730 [facility] Last Admin: 10/18/17 16:49 Dose: 30 ml Atorvastatin Calcium (Lipitor -) 40 mg PO HS [facility] Last Admin: 10/17/17 21:02 Dose: 40 mg Budesonide (Pulmicort 0.5 Mg Nebulizer -) 1 amp NEB RBID [facility] Last Admin: 10/18/17 07:50 Dose: 1 amp Cyanocobalamin (Vitamin B12 Injection -) 1,000 mcg IM Q7D@1000 [facility] Last Admin: 10/18/17 10:08 Dose: 1,000 mcg Diltiazem HCl (Cardizem -) 30 mg PO QID PRN PRN Reason: TACHYCARDIA Last Admin: 10/14/17 17:06 Dose: 30 mg Docusate Sodium (Colace -) 100 mg PO TID [facility] Last Admin: 10/18/17 14:25 Dose: 100 mg Folic Acid (Folic Acid -) 1 mg PO DAILY [facility] Last Admin: 10/18/17 10:07 Dose: 1 mg Heparin Sodium (Porcine) (Heparin -) 5,000 unit SQ BID [facility] Last Admin: 10/18/17 10:07 Dose: 5,000 unit Insulin Aspart (Novolog Vial Sliding Scale -) 1 vial SQ ACHS [facility] PRN Reason: Protocol Last Admin: 10/18/17 16:48 Dose: 10 units Insulin Detemir (Levemir Vial) 10 units SQ BIDI [facility] Last Admin: 10/18/17 16:24 Dose: 10 units Levothyroxine Sodium (Synthroid -) 50 mcg PO DAILY@0700 [facility] Last Admin: 10/18/17 06:30 Dose: 50 mcg Methylprednisolone Sodium Succinate (Solu-Medrol -) 40 mg IVPUSH Q12H [facility] Last Admin: 10/18/17 09:58 Dose: 40 mg Mirtazapine (Remeron -) 15 mg PO HS [facility] Last Admin: 10/17/17 21:03 Dose: 15 mg Multivitamins/Minerals/Vitamin C (Tab-A-Vit -) 1 tab PO DAILY [facility] Last Admin: 10/18/17 10:08 Dose: 1 tab Pantoprazole Sodium (Protonix -) 40 mg PO DAILY [facility] Last Admin: 10/18/17 10:08 Dose: 40 mg Potassium Phos/Sodium Phos (Phos-Nak Packet -) 1 packet PO BID [facility] Last Admin: 10/18/17 10:08 Dose: 1 packet - Objective Vital Signs: Vital Signs - 24 hr 10/17/17 10/18/17 10/18/17 22:00 06:00 09:00 Temperature 97.7 F 98.1 F Pulse Rate 101 H 101 H Respiratory 22 20 20 Rate Blood Pressure 146/70 139/84 O2 Sat by Pulse 99 Oximetry (%) 10/18/17 10/18/17 10/18/17 14:49 17:22 20:28 Temperature 98.1 F 98.1 F Pulse Rate 108 H 98 H Respiratory 20 20 20 Rate Blood Pressure 143/82 127/74 O2 Sat by Pulse 99 Oximetry (%) Intake & Output 10/16/17 10/17/17 10/18/17 10/19/17 07:59 07:59 07:59 07:59 Intake Total 400 300 100 260 Balance 400 300 100 260 Weight 175 lb 1.6 oz 172 lb 8 oz 174 lb 1.6 oz nad, calm no jvd rrr s1s2 no mrg basilar rales that improve with cough, nl eff aaox3 no le e/c/c LUE lymphedema/compression glove on abd nt nd pos bs no jaundice diaphoresis pos dp pt no carotid bruits Labs: no CBC, BMP today 10/17/17 06:00 10/17/17 06:00 Assessment/Plan rpt ECG 10/14: sinus tach 105 bpm, LAFB, old AWMI with TWI v2-- no change vs 10/12, 10/06 cxr 10/12: left hemidiaphragm elevation with shallow inspiration resulting in accentuated pulmonary vasculature. no chf. cxr 10/08: images, report reviewed. progressive pulmonary changes bilaterally. also with cephalization pattern likely, ? L effusion CTA chest 10/05: no PE. fibrotic changes/pleural thickening L apex. L base ATX. no congestion, effusions. ? bony met.s Echo 09/2017: tds. grossly nl lv fn. impaired relaxation. grossly nl rv size/ fn. mv not well visualized. no pericardial effusion mibi 04/2017: no ecg changes with exercise, nl mpi, lvef 47% LUE dopplers neg for dvt a/p: 67 f hx metastatic breast ca on chemo, hld, dm, htn, here with 1 week sob/ teresa. sinus tach - suspect sec to acute radiation pneumonitis +/- IV steroids. - CXR 10/14 image reviewed: no cephalization, ? small L effusion, faint interstitial prominence--no change vs prior - she will likely tolerate sinus tach intermittently, as she has had no CHF here. HR much improved (prn low dose diltiazem as ordered) radiation pneumonitis (sob, fever)/transient worsened diffuse interstitial infiltrates on CXR 10/09--improved, stage 4 breast Ca: -no signs chf on exam or ct chest, bnp <100. received brief IV lasix following acute CXR changes here, now off -no signs acs -likely no chf component here (suspect transient incr'd interstitial infiltrates were part of pneumonitis, dropped BP after IVP lasix) -echo unremarkable. -abx per ID, steroid taper per pulm -sob currently is improving, and she is clinically stable, weights stable -low threshold for prn lasix 20-40mg IV if worsening sob or incr infiltrates on cxr anemia: - declines blood transfusions. - heme now following, pt on procrit htn: -lisinopril held here for low bp trend -2/7 bp improving now. will resume at low dose and titrate up as needed. hld: -cont statin
[2017-10-18] MEDS: MIRTAZAPINE 15 MG TABLET (FP) PO SCH (21:40)
[2017-10-18] MEDS: ATORVASTATIN CA 40 MG TABLET (FP) PO SCH (21:40)
[2017-10-19] MEDS: DOCUSATE SODIUM 100 MG CAPSULE (FP) PO SCH ×3 (05:48→21:11)
[2017-10-19] MEDS: INSULIN DETEMIR 100 UNITS/ML MDV SQ SCH ×2 (06:03→17:18)
[2017-10-19] MEDS: INSULIN SLIDING SCALE (NOVOLOG) 1 VIAL SQ SCH ×4 (06:03→21:12)
[2017-10-19] MEDS: LEVOTHYROXINE NA 50 MCG TABLET (FP) PO SCH (06:04)
[2017-10-19] MEDS ORDERED: INSULIN (NOVOLOG) ASPART 100 UNITS/ML 10ML VIAL ONE ×2 (06:05→19:42)
[2017-10-19] MEDS ORDERED: INSULIN DETEMIR 100 UNITS/ML MDV SQ ONE ×2 (06:05→19:42)
[2017-10-19] MEDS: BUDESONIDE 0.5 MG/2 ML INH SUSP VIAL NEB SCH ×2 (08:15→20:28)
[2017-10-19] MEDS: AMINO ACIDS/PROTEIN HYDROLYS 30 ML LIQUID.PKT PO SCH ×2 (10:06→17:19)
[2017-10-19] MEDS: HEPARIN NA (PORCINE) 5,000 UNITS/ML 1ML VIAL SQ SCH ×2 (10:06→21:11)
[2017-10-19] MEDS: methylPREDNISolone NA SUCC 40 MG/1 ML VIAL IVPUSH SCH (10:07)
[2017-10-19] MEDS: PANTOPRAZOLE 40 MG TABLET (FP) PO SCH (10:10)
[2017-10-19] MEDS: LISINOPRIL 5 MG TABLET (FP) PO SCH (10:10)
[2017-10-19] MEDS: FOLIC ACID 1 MG TABLET (FP) PO SCH (10:10)
[2017-10-19] MEDS: MULTIVITAMINS (DAILY MVI) TABLET (FP) PO SCH (10:11)
--- NOTE | 2017-10-19 10:46 | PN ---
Progress Note (short form) - Note Progress Note: PULMONARY Breathing continues to improve. +nonproductive cough better. No fevers or chills. Last Vital Signs Temp Pulse Resp BP Pulse Ox 98 F 97 H 20 149/82 99 10/19/17 05:53 10/19/17 05:53 10/19/17 05:53 10/19/17 05:53 10/18/17 20:28 Gen: less tachypneic at rest Heart: RRR Lung: basilar rales Abd: soft, nontender Ext: + edema CBC, BMP 10/17/17 06:00 10/17/17 06:00 Active Medications Acetaminophen (Tylenol -) 650 mg PO Q4H PRN PRN Reason: FEVER Last Admin: 10/11/17 12:49 Dose: 650 mg Albuterol/Ipratropium (Duoneb -) 1 amp NEB Q4H PRN PRN Reason: SHORT OF BREATH/WHEEZING Last Admin: 10/18/17 07:45 Dose: 1 amp Amino Acids (Prosource No Carb Liquid Pkt) 30 ml PO BID@0800,1730 [facility] Last Admin: 10/19/17 10:06 Dose: 30 ml Atorvastatin Calcium (Lipitor -) 40 mg PO HS [facility] Last Admin: 10/18/17 21:40 Dose: 40 mg Budesonide (Pulmicort 0.5 Mg Nebulizer -) 1 amp NEB RBID [facility] Last Admin: 10/19/17 08:15 Dose: 1 amp Cyanocobalamin (Vitamin B12 Injection -) 1,000 mcg IM Q7D@1000 [facility] Last Admin: 10/18/17 10:08 Dose: 1,000 mcg Diltiazem HCl (Cardizem -) 30 mg PO QID PRN PRN Reason: TACHYCARDIA Last Admin: 10/14/17 17:06 Dose: 30 mg Docusate Sodium (Colace -) 100 mg PO TID [facility] Last Admin: 10/19/17 05:48 Dose: 100 mg Folic Acid (Folic Acid -) 1 mg PO DAILY [facility] Last Admin: 10/19/17 10:10 Dose: 1 mg Heparin Sodium (Porcine) (Heparin -) 5,000 unit SQ BID [facility] Last Admin: 10/19/17 10:06 Dose: 5,000 unit Insulin Aspart (Novolog Vial Sliding Scale -) 1 vial SQ ACHS [facility] PRN Reason: Protocol Last Admin: 10/19/17 06:03 Dose: 2 units Insulin Detemir (Levemir Vial) 10 units SQ BIDI [facility] Last Admin: 10/19/17 06:03 Dose: 10 units Levothyroxine Sodium (Synthroid -) 50 mcg PO DAILY@0700 [facility] Last Admin: 10/19/17 06:04 Dose: 50 mcg Lisinopril (Prinivil) 5 mg PO DAILY [facility] Last Admin: 10/19/17 10:10 Dose: 5 mg Methylprednisolone Sodium Succinate (Solu-Medrol -) 40 mg IVPUSH Q12H [facility] Last Admin: 10/19/17 10:07 Dose: 40 mg Mirtazapine (Remeron -) 15 mg PO HS [facility] Last Admin: 10/18/17 21:40 Dose: 15 mg Multivitamins/Minerals/Vitamin C (Tab-A-Vit -) 1 tab PO DAILY [facility] Last Admin: 10/19/17 10:11 Dose: 1 tab Pantoprazole Sodium (Protonix -) 40 mg PO DAILY [facility] Last Admin: 10/19/17 10:10 Dose: 40 mg A/P Radiation Pneumonitis Metastatic Breast Ca HTN Hyperlipidemia DM - will change steroids to PO prednisone 40mg daily, can taper as outpt - inhaled bronchodilators as needed - O2 to keep SpO2 >90% - glucose control while on systemic steroids - PO as tolerated - DVT prophylaxis
--- NOTE | 2017-10-19 14:23 | DS ---
Physical Examination Vital Signs: Vital Signs Temperature 98 F 10/19/17 05:53 Pulse Rate 97 H 10/19/17 05:53 Respiratory Rate 19 10/19/17 09:00 Blood Pressure 149/82 10/19/17 05:53 O2 Sat by Pulse Oximetry (%) 99 10/19/17 09:00 Constitutional: Yes: Well Nourished Eyes: Yes: WNL HENT: Yes: WNL Neck: Yes: WNL Cardiovascular: Yes: WNL Respiratory: Yes: WNL Gastrointestinal: Yes: WNL ...Rectal Exam: Yes: WNL, Deferred Renal/: Yes: WNL Breast(s): Yes: Other Musculoskeletal: Yes: WNL Extremities: Yes: WNL Edema: Yes Edema: LUE: 3+ Peripheral Pulses WNL: Yes Integumentary: Yes: WNL Neurological: Yes: WNL ...Motor Strength: WNL Psychiatric: Yes: WNL Labs: CBC, BMP 10/17/17 06:00 10/17/17 06:00 Discharge Summary Reason For Visit: SHORTNESS OF BREATH Current Active Problems Cancer of left breast, stage 4 (Acute) Cardiomyopathy due to chemotherapy (Acute) Diabetes (Acute) Fever (Acute) Pneumonia (Acute) Radiation pneumonitis (Acute) Shortness of breath (Acute) Condition: Guarded - Instructions - Home Medications Comprehensive Discharge Medication List: Ambulatory Orders Ergocalciferol [Vitamin D2] 50,000 unit PO SA 10/05/17 Insulin Glargine,Hum.rec.anlog [Sybil Ruiz] 10 unit SQ AM 10/05/17 Levothyroxine [Synthroid -] 50 mcg PO DAILY 10/05/17 Lisinopril 10 mg PO DAILY 10/05/17 Metformin HCl [Glucophage] 1,000 mg PO BID 10/05/17 Simvastatin [Zocor -] 40 mg PO HS 10/05/17
[2017-10-19 17:20] VITALS: BP 109/52
[2017-10-19] MEDS: MIRTAZAPINE 15 MG TABLET (FP) PO SCH (21:12)
[2017-10-19] MEDS: ATORVASTATIN CA 40 MG TABLET (FP) PO SCH (21:12)
[2017-10-20] MEDS: DOCUSATE SODIUM 100 MG CAPSULE (FP) PO SCH (05:34)
[2017-10-20] MEDS: INSULIN SLIDING SCALE (NOVOLOG) 1 VIAL SQ SCH ×2 (06:32→12:34)
[2017-10-20] MEDS: INSULIN DETEMIR 100 UNITS/ML MDV SQ SCH (06:32)
[2017-10-20] MEDS: LEVOTHYROXINE NA 50 MCG TABLET (FP) PO SCH (06:33)
[2017-10-20] MEDS ORDERED: INSULIN (NOVOLOG) ASPART 100 UNITS/ML 10ML VIAL ONE (06:35)
[2017-10-20] MEDS ORDERED: INSULIN DETEMIR 100 UNITS/ML MDV SQ ONE (06:35)
[2017-10-20] MEDS: BUDESONIDE 0.5 MG/2 ML INH SUSP VIAL NEB SCH (07:43)
[2017-10-20] MEDS: PANTOPRAZOLE 40 MG TABLET (FP) PO SCH (09:19)
[2017-10-20] MEDS: AMINO ACIDS/PROTEIN HYDROLYS 30 ML LIQUID.PKT PO SCH (09:20)
[2017-10-20] MEDS: FOLIC ACID 1 MG TABLET (FP) PO SCH (09:20)
[2017-10-20] MEDS: MULTIVITAMINS (DAILY MVI) TABLET (FP) PO SCH (09:20)
[2017-10-20] MEDS: HEPARIN NA (PORCINE) 5,000 UNITS/ML 1ML VIAL SQ SCH (09:20)
[2017-10-20] MEDS: LISINOPRIL 5 MG TABLET (FP) PO SCH (09:20)
[2017-10-20] MEDS ORDERED: predniSONE 20 MG TABLET (UD) PO SCH (10:00)
[2017-10-20 10:44] VITALS: PULSE 111; TEMP 98.2
[2017-10-20 10:44] LABS: HEMATOCRIT 32.3 % (32.4-45.2); HEMOGLOBIN 9.9 GM/dL (10.7-15.3); MCH 27.6 pg (25.7-33.7); MCHC 30.7 g/dl (32.0-36.0); MEAN CELL VOLUME 89.8 fl (80-96); PLATELET COUNT 510 K/MM3 (134-434); RDW 22.7 % (11.6-15.6); WHITE BLOOD COUNT 16.4 K/mm3 (4.0-10.0)
[2017-10-20 11:02] LABS: ADD RBC MORPHOLOGY YES
[2017-10-20] MEDS ORDERED: predniSONE 20 MG TABLET (UD) PO ONE (12:19)
--- NOTE | 2017-10-20 12:24 | PN ---
Progress Note (short form) - Note Progress Note: sitting upin bed reports getting better - able to walk to bathroom with less dyspnea on O2 dress for discharge already Vital Signs Period Temp Pulse Resp BP Sys/Cortez Pulse Ox Last 24 Hr 97.5 F-98.2 F 85-114 18-20 126-158/72-93 97 neck supple -JVD heart S1/S2 regular lungs / no wheezing / decreased at left base abd soft ext no edema persistent lymphedema left arm CBC, BMP 10/20/17 10:30 10/17/17 06:00 CTA - negative Microbiology 10/10/17 13:40 Urine For Antigen Detection Legionella Antigen - Final 10/10/17 13:40 Urine For Antigen Detection Streptococcus pneumoniae Antigen (M - Final 10/05/17 21:45 Blood - Peripheral Venous Blood Culture - Final NO GROWTH AFTER 5 DAYS INCUBATION 10/05/17 21:15 Blood - Peripheral Venous Blood Culture - Final NO GROWTH AFTER 5 DAYS INCUBATION 10/06/17 13:10 Urine - Urine Clean Catch Urine Culture - Final NO GROWTH OBTAINED 10/06/17 11:00 Nasopharyngeal Swab Influenza Types A,B Antigen (LUIS M) - Final 10/06/17 11:00 Nasopharyngeal Swab - Final Active Medications Acetaminophen (Tylenol -) 650 mg PO Q4H PRN PRN Reason: FEVER Last Admin: 10/10/17 22:59 Dose: 650 mg Albuterol/Ipratropium (Duoneb -) 1 amp NEB Q4H PRN PRN Reason: SHORT OF BREATH/WHEEZING Last Admin: 10/10/17 07:45 Dose: 1 amp Albuterol/Ipratropium (Duoneb -) 1 amp NEB RQID [facility] Last Admin: 10/11/17 07:25 Dose: 1 amp Albuterol/Ipratropium (Duoneb -) 1 amp NEB Q4H PRN PRN Reason: SHORTNESS OF BREATH Atorvastatin Calcium (Lipitor -) 40 mg PO HS [facility] Last Admin: 10/10/17 22:48 Dose: 40 mg Budesonide (Pulmicort 0.5 Mg Nebulizer -) 1 amp NEB RBID [facility] Last Admin: 10/11/17 07:30 Dose: 1 amp Docusate Sodium (Colace -) 100 mg PO TID [facility] Last Admin: 10/11/17 06:32 Dose: 100 mg Ferrous Sulfate (Feosol -) 325 mg PO TIDCM [facility] Last Admin: 10/11/17 08:21 Dose: 325 mg Folic Acid (Folic Acid -) 1 mg PO DAILY [facility] Last Admin: 10/11/17 09:04 Dose: 1 mg Heparin Sodium (Porcine) (Heparin -) 5,000 unit SQ BID [facility] Last Admin: 10/11/17 09:04 Dose: 5,000 unit Cefepime HCl (Maxipime 1 Gm Premix Ivpb) 1 gm in 50 mls @ 100 mls/hr IVPB Q8H- IV [facility] Last Admin: 10/11/17 09:04 Dose: 100 mls/hr Azithromycin 500 mg/ Dextrose 250 mls @ 250 mls/hr IVPB DAILY [facility] Last Admin: 10/11/17 09:04 Dose: 250 mls/hr Insulin Aspart (Novolog Vial Sliding Scale -) 1 vial SQ ACHS [facility] PRN Reason: Protocol Last Admin: 10/11/17 10:57 Dose: Not Given Insulin Detemir (Levemir Vial) 10 units SQ BIDI [facility] Last Admin: 10/11/17 06:34 Dose: 10 units Levothyroxine Sodium (Synthroid -) 50 mcg PO DAILY@0700 [facility] Last Admin: 10/11/17 06:31 Dose: 50 mcg Mirtazapine (Remeron -) 15 mg PO HS [facility] Last Admin: 10/10/17 22:47 Dose: 15 mg Multivitamins/Minerals/Vitamin C (Tab-A-Vit -) 1 tab PO DAILY [facility] Last Admin: 10/11/17 09:04 Dose: 1 tab Pantoprazole Sodium (Protonix -) 40 mg PO DAILY [facility] Last Admin: 10/11/17 09:04 Dose: 40 mg Potassium Phos/Sodium Phos (Phos-Nak Packet -) 1 packet PO BID [facility] Last Admin: 10/11/17 09:04 Dose: 1 packet # Tachycardia aymptomatic now resolved CCB prn # dyspnea 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 nebulizer / inhaled steroids PO steroids -- will start to taper as out patient antibiotics now completed anemia --w/u done - on supplements and Procrit improved hgb 9.9 # stage 4 Breast CA undergoing chemo -- last treatment approx 2 week ago Procrit -- as patient declines blood transfusion, ( "even if it cost me my life") # Diabetes Mellitis Diabetic diet / sliding scale last HgA1c 9.9 had been on steroids during chemo # anemia declines blood transfusion Fe / folic acid / mvi /procrit labs as needed # malnutrition Poor appetite low albumin ON proform # hypothyroid continue meds # depression discussed with niece can't sleep / overall poor outlook on plans started on remeron discussed d/c patient to follow up in office next week Problem List - Problems (1) Shortness of breath Code(s): R06.02 - SHORTNESS OF BREATH (2) Cardiomyopathy due to chemotherapy Code(s): I42.7 - CARDIOMYOPATHY DUE TO DRUG AND EXTERNAL AGENT; T45.1X5A - ADVERSE EFFECT OF ANTINEOPLASTIC AND IMMUNOSUP DRUGS, INIT (3) Cancer of left breast, stage 4 Code(s): C50.912 - MALIGNANT NEOPLASM OF UNSPECIFIED SITE OF LEFT FEMALE BREAST (4) Diabetes Code(s): E11.9 - TYPE 2 DIABETES MELLITUS WITHOUT COMPLICATIONS
[2017-10-20 12:27] LABS: ANISOCYTOSIS 2+; PLATELET ESTIMATE INCREASED
== END 2017-10-20 12:45 | disposition home or self-care (01) | DRG 812 ==
LOC: JER 16:59 → JERBED 20:18 → J7W 10-06 14:30
PROVIDERS: ADMIT Family Medicine; ATTEND Family Medicine
DX: D64.81 Anemia due to antineoplastic chemotherapy (principal); I42.7 Cardiomyopathy due to drug and external agent; J70.0 Acute pulmonary manifestations due to radiation; E46 Unspecified protein-calorie malnutrition; L03.114 Cellulitis of left upper limb; J98.11 Atelectasis; I82.611 Acute embolism and thrombosis of superficial veins of right upper extremity; T45.1X5A Adverse effect of antineoplastic and immunosuppressive drugs, initial encounter; I10 Essential (primary) hypertension; C50.912 Malignant neoplasm of unspecified site of left female breast; E11.9 Type 2 diabetes mellitus without complications; E78.5 Hyperlipidemia, unspecified; Z79.4 Long term (current) use of insulin; Z79.84 Long term (current) use of oral hypoglycemic drugs; Z90.12 Acquired absence of left breast and nipple; Z87.891 Personal history of nicotine dependence; E66.9 Obesity, unspecified; Z68.30 Body mass index [BMI] 30.0-30.9, adult; E03.9 Hypothyroidism, unspecified; F32.9 Major depressive disorder, single episode, unspecified; Z53.1 Procedure and treatment not carried out because of patient's decision for reasons of belief and group pressure; R60.0 Localized edema; I89.0 Lymphedema, not elsewhere classified; R00.0 Tachycardia, unspecified; K59.00 Constipation, unspecified; R50.9 Fever, unspecified
CPT/HCPCS: 36415; 71045-TC-FY; 71046-TC-FY; 71275-TC; 80048; 80053; 81003; 82272; 82550; 82607; 82728; 82747; 82962; 83605; 83615; 83735; 83880; 84100; 84439; 84443; 84484; 85014; 85025; 85027; 85044; 85610; 87040; 87086; 87804; 87899; 90688; 93005; 93010; 93306-TC; 93970-TC; 93971; 94640; 94761; 97116-GP; 97161-GP; 99284-25; 99285-25; G0008; J0885; J1644; J1756; J7030

== ENCOUNTER 2020-04-01 16:09 | Inpatient (IN) | payer OTHER ==
--- NOTE | 2020-04-01 16:22 | PDOC ---
Rapid Medical Evaluation Time Seen by Provider: 04/01/20 16:11 Medical Evaluation: Allergies Allergy/AdvReac Type Severity Reaction Status Date / Time No Known Allergies Allergy Verified 10/05/17 17:10 04/01/20 16:11 I have performed a brief in-person evaluation of this patient. The patient presents with a chief complaint of: syncope 2 days ago, baseline since. Went to PMD today and sent to ED for further eval and ekg changes (pt and son have ekg on their persons). No cp or sob per pt. No seizure life activity noted per son who is currently w/ pt. H/o breast ca, s/p b/l mastectomy, currently on chemo via R chest port, last chemo 03/23 in the [place]. Also has h/o HTN, HLD, CVA, former smoker, COPD. Referring PMD located in [place] Pertinent physical exam findings:stable, alert, NAD I have ordered the following:ekg/cxr/labs The patient will proceed to the ED for further evaluation. 04/01/20 16:26 Discharge Disposition - Diagnosis Syncope Qualifiers: Syncope type: unspecified Qualified Code(s): R55 - Syncope and collapse - Referrals - Patient Instructions - Post Discharge Activity
[2020-04-01] MEDS ORDERED: LACTATED RINGERS SOLUTION 1000 ML INFUS.BAG IV ONE (17:29)
[2020-04-01 17:43] LABS: BASO % 0.8 % (0-2.0); EOS % 2.3 % (0-4.5); HEMATOCRIT 31.7 % (32.4-45.2); HEMOGLOBIN 10.5 GM/dL (10.7-15.3); LYMPH % 16.7 % (8-40); MCH 27.3 pg (25.7-33.7); MCHC 33.1 g/dl (32.0-36.0); MEAN CELL VOLUME 82.6 fl (80-96); MEAN PLT VOLUME 7.2 fl (7.5-11.1); MONO % 8.6 % (3.8-10.2); NEUT % 71.6 % (42.8-82.8); PLATELET COUNT 318 K/MM3 (134-434); RBC 3.84 M/mm3 (3.60-5.2); RDW 16.1 % (11.6-15.6); WHITE BLOOD COUNT 8.5 K/mm3 (4.0-10.0)
--- NOTE | 2020-04-01 17:47 | PDOC ---
Documentation entered by Gilles Garcia SCRIBE, acting as scribe for Angeles Goss DO. Angeles Goss DO: This documentation has been prepared by the Ashley woodward inGilles SCRIBE, under my direction and personally reviewed by me in its entirety. I confirm that the documentation accurately reflects all work, treatment, procedures, and medical decision making performed by me. History of Present Illness - General Chief Complaint: Syncope/Near Syncope Stated Complaint: SYNCOPE Time Seen by Provider: 04/01/20 16:11 History Source: Patient Exam Limitations: No Limitations - History of Present Illness Initial Comments: 04/01/20 17:48 The patient is a 69 year old female with a significant past medical history of Stage 4 breast cancer (s/p bilateral mastectomy last chemo 03/23, next chemo 04/13), cardiomyopathy, pneumonitis, HTN, HLD, and DM who presents to the ED for evaluation s/p a syncopal episode on two days ago. The patient reports she was sitting and feeling lightheaded and nauseous prior to when she lost consciousness. Patient and family at her bedside deny any injury to her head or neck. The patient also notes bilateral lower extremity pain that is worse in the left leg which she believes is chronic in nature. She was evaluated by her SUPERVISOR BACKFILLING Yesi Yoon for evaluation after her syncopal episodes at which time she was advised to report to the ED for further evaluations secondary to EKG changes. The patient denies chest pain, palpitations, swelling, and dysuria. The patient denies any other symptoms. PCP: Dr. Latanya Mathur Oncologist: [facility] Allergies: NKDA Past History - Medical History Allergies/Adverse Reactions: Allergies Allergy/AdvReac Type Severity Reaction Status Date / Time No Known Allergies Allergy Verified 04/01/20 16:16 Home Medications: Ambulatory Orders Ergocalciferol [Vitamin D2] 50,000 unit PO SA 10/05/17 Insulin Glargine,Hum.rec.anlog [Toujeo Solostar] 10 unit SQ AM 10/05/17 Levothyroxine [Synthroid -] 50 mcg PO DAILY 10/05/17 Lisinopril 10 mg PO DAILY 10/05/17 Metformin HCl [Glucophage] 1,000 mg PO BID 10/05/17 Simvastatin [Zocor -] 40 mg PO HS 10/05/17 Cancer: Yes (left breast) Cardiac Disorders: No CVA: Yes () COPD: Yes DVT: No Diabetes: Yes HTN: Yes Hypercholesterolemia: Yes Other medical history: chemo last 03/23/2020 - Surgical History Cholecystectomy: Yes (1998) Lung Surgery: No (portacath) - Immunization History Immunization Up to Date: Yes - Psycho-Social/Smoking History Smoking History: Never smoked Have you smoked in the past 12 months: No If you are a former smoker, when did you quit?: 30YRS - Substance Abuse Hx (Audit-C & DAST Scrn) How often the patient has a drink containing alcohol: Never Score: In Men: 4 or > Positive; In Women: 3 or > Positive: 0 Screen Result (Pos requires Nsg. Audit-10AR): Negative Review of Systems - Review of Systems Able to Perform ROS?: Yes Comments:: 04/01/20 17:48 GENERAL/CONSTITUTIONAL: No fever or chills. No weakness. HEAD, EYES, EARS, NOSE AND THROAT: No change in vision. No ear pain or discharge. No sore throat. GASTROINTESTINAL: +nausea No vomiting, diarrhea or constipation. GENITOURINARY: No dysuria, frequency, or change in urination. CARDIOVASCULAR: No chest pain or shortness of breath. RESPIRATORY: No cough, wheezing, or hemoptysis. MUSCULOSKELETAL: + B/L lower extremity pain. No neck or back pain. SKIN: No rash NEUROLOGIC: + loss of consciousness. No headache, vertigo, or change in strength/sensation. ENDOCRINE: No increased thirst. No abnormal weight change. HEMATOLOGIC/LYMPHATIC: No anemia, easy bleeding, or history of blood clots. ALLERGIC/IMMUNOLOGIC: No hives or skin allergy. All Other Systems: Reviewed and Negative *Physical Exam - Vital Signs Last Vital Signs Temp Pulse Resp BP Pulse Ox 97 F L 88 18 101/68 99 04/01/20 16:13 04/01/20 16:13 04/01/20 16:13 04/01/20 16:13 04/01/20 16:13 - Physical Exam 04/01/20 18:18 Constitutional: Awake, alert, oriented. No acute distress. Head: Normocephalic. Atraumatic Eyes: PERRL. EOMI. Conjunctivae are not pale. ENT: Mucous membranes are moist and intact. Neck: Supple. Cardiovascular: Regular rate. Regular rhythm. S1, S2 regular. Distal pulses are 2+ and symmetric. Pulmonary/Chest: + subcutaneous port a cath in right chest wall, bilateral mastectomy with implants. No evidence of respiratory distress. Clear to auscultation bilaterally No wheezing, rales or rhonchi. Abdominal: Soft and non-distended. There is no tenderness. No rebound, guarding or rigidity. No organomegaly. No palpable masses. Good bowel sounds. Back: No CVA tenderness. Musculoskeletal: +bilateral +1 pitting edema, left calf tenderness to palpation. No cyanosis. No clubbing. Full range of motion in all extremities.. Radial/pedal pulses are intact and 2+ bilaterally Skin: Skin is warm and dry. No petechiae. No purpura. Neurological: Alert and oriented to person, place, and time. Cranial nerves II-XII are grossly intact. Normal speech. Strength is grossly symmetric. No sensory deficits. Psychiatric: Good eye contact. Normal interaction, affect and behavior. Heart Score/ECG Review - ECG Intrepretation Comment:: 04/01/20 17:34 sinus at 81, low voltage, incomplete RBBB, waves anterolaterally which are age indeterminate, poor r wave progression, q waves inferiorly, abnl ekg, but unchanged from prior in 2018 ED Treatment Course - LABORATORY CBC & Chemistry Diagram: 04/01/20 17:00 04/01/20 17:00 Medical Decision Making - Medical Decision Making 04/01/20 17:43 a/p: 69yo female with a witnessed syncopal episode while in a chair on the phone on Monday -seen by her PMD today who sent her in for further eval -hx of stage4 breast ca -felt lightheaded prior -will obtain orthostatics -will send labs, per , pt "hot" all the time, will send tsh -hx of chemo and radiation -will obtain ekg, cxr, ct head -last chemo was last Friday 03/23, due again on 04/13 -has a port to the R chest wall - no surrounding erythema or fluctuance when palpated -denies urinary complaints -s/p b/l mastectomy -will need obs for syncope overnight 04/01/20 18:35 labs reviewed trop neg elevated tsh, free t4 added case disussed with Dr. Contreras who accepts pt to service 04/01/20 18:[address] without acute findings cxr clear Discharge - Discharge Information Problems reviewed: Yes Clinical Impression/Diagnosis: Syncope Qualifiers: Syncope type: unspecified Qualified Code(s): R55 - Syncope and collapse Condition: Fair - Admission Yes - Follow up/Referral Referrals: Latanya Mathur MD [Primary Care Provider] - - Patient Discharge Instructions - Post Discharge Activity
[2020-04-01 17:50] LABS: INR 0.97 (0.83-1.09); PROTHROMBIN TIME (PATIENT) 11.4 SEC (9.7-13.0)
[2020-04-01 18:24] LABS: ALBUMIN 3.4 g/dl (3.4-5.0); ALK PHOS 81 U/L (45-117); ANION GAP 7 MMOL/L (8-16); BILIRUBIN,TOTAL 0.2 mg/dL (0.2-1); CALCIUM 9.2 mg/dL (8.5-10.1); CHLORIDE 98 mmol/L (98-107); CO2 28 mmol/L (21-32); CREATININE 0.9 mg/dL (0.55-1.3); GLUCOSE,RANDOM 96 mg/dL (74-106); POTASSIUM 4.8 mmol/L (3.5-5.1); SGOT/AST 30 U/L (15-37); SGPT/ALT 14 U/L (13-61); SODIUM 133 mmol/L (136-145)
--- NOTE | 2020-04-01 18:31 | HP ---
Admitting History and Physical - Admission Chief Complaint: Acute syncope and collapse followed by nausea and vomiting History of Present Illness: This 69 yr old female with PMH of stage 4 breast cancer, s/p bilateral mastectomy, s/p cholecystectomy, cardiomyopathy, HTN, NIDDM, HLD admitted via ER with an acute syncope and collapse having occurred 2 days ago. 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 Cardiovascular: Yes: HTN, Hyperlipdemia Pulmonary: No: Asthma, Bronchitis, Cancer, COPD, O2 Dependent, Pneumonia, Previously Intubated, Pulmonary Embolus, Pulmonary Fibrosis, Sleep Apnea, Other Gastrointestinal: Yes: GERD Hepatobiliary: Yes: Cholelithiasis Renal/: No: Renal Failure, Renal Inusuff, BPH, Cancer, Hematuria, Hemodialysis, Neurogenic Bladder, Renal Calculi, UTI, Other Reproductive: No: Ectopic , Endometriosis, Fibroids, PID, Polycystic Ovary Syndrome, Postmenopausal, Other Heme/Onc: Yes: Cancer (breast cancer) Infectious Disease: No: AIDS, C-Diff, Herpes Zoster, HIV, MRSA, STD's, Tuberculosis, VREF, Other Psych: No: Addictions, Anxiety, Bipolar, Depression, Panic, Psychosis, Schizophrenia, Other Musculoskeletal: No: Bursitis, Chronic low back pain, Hemiparesis, Hemiplegia, Osteoarthritis, Paraplegia, Other Rheumatology: No: Fibromyalgia, Gout, Lupus, Rheumatoid Arthritis, Sarcoidosis, Vasculitis, Other ENT: No: Allergic Rhinitis, Sinusitis, Other Endocrine: Yes: Diabetes Mellitus Dermatology: No: Basal Cell, Cellulitis, Eczema, Melanoma, Psoriasis, Squamous Cell, Other - Past Surgical History Past Surgical History: Yes: Cholecystectomy, Mastectomy - Smoking History Smoking history: Never smoked Have you smoked in the past 12 months: No If you are a former smoker, when did you quit?: 30YRS - Alcohol/Substance Use Hx Alcohol Use: No History of Substance Use: reports: None - Social History ADL: Independent Home Medications - Allergies Allergies/Adverse Reactions: Allergies Allergy/AdvReac Type Severity Reaction Status Date / Time No Known Allergies Allergy Verified 04/01/20 16:16 - Home Medications Home Medications: Ambulatory Orders Ergocalciferol [Vitamin D2] 50,000 unit PO SA 10/05/17 Insulin Glargine,Hum.rec.anlog [Toujeo Solostar] 10 unit SQ AM 10/05/17 Levothyroxine [Synthroid -] 50 mcg PO DAILY 10/05/17 Lisinopril 10 mg PO DAILY 10/05/17 Metformin HCl [Glucophage] 1,000 mg PO BID 10/05/17 Simvastatin [Zocor -] 40 mg PO HS 10/05/17 Review of Systems - Review of Systems Constitutional: reports: No Symptoms Eyes: reports: No Symptoms HENT: reports: No Symptoms Neck: reports: No Symptoms Cardiovascular: reports: No Symptoms Respiratory: reports: No Symptoms Gastrointestinal: reports: No Symptoms Genitourinary: reports: No Symptoms Breasts: reports: Other (s/p bilateral mastectomy) Musculoskeletal: reports: No Symptoms Integumentary: reports: No Symptoms Neurological: reports: No Symptoms Endocrine: reports: No Symptoms Hematology/Lymphatic: reports: No Symptoms Psychiatric: reports: No Symptoms Physical Examination Vital Signs: Vital Signs Temperature 97 F L 04/01/20 16:13 Pulse Rate 70 04/01/20 17:41 Respiratory Rate 18 04/01/20 16:13 Blood Pressure 121/49 L 04/01/20 17:41 O2 Sat by Pulse Oximetry (%) 97 04/01/20 17:37 Constitutional: Yes: Well Nourished, No Distress, Calm Eyes: Yes: Conjunctiva Clear, EOM Intact HENT: Yes: Atraumatic, Normocephalic Neck: Yes: Supple, Trachea Midline Cardiovascular: Yes: Regular Rate and Rhythm Respiratory: Yes: Regular, CTA Bilaterally Gastrointestinal: Yes: Normal Bowel Sounds, Soft ...Rectal Exam: Yes: Deferred Renal/: Yes: WNL Breast(s): Yes: Other (s/p bilateral mastectomy) Musculoskeletal: Yes: WNL Extremities: Yes: WNL Edema: No Peripheral Pulses WNL: Yes Integumentary: Yes: WNL Neurological: Yes: Alert, Oriented ...Motor Strength: WNL Psychiatric: Yes: WNL Labs: CBC, BMP 04/01/20 17:00 04/01/20 17:00 Imaging - Results Chest X-ray: Report Reviewed Cat Scan: Report Reviewed Ultrasound: Report Reviewed EKG: Report Reviewed Other: Report Reviewed (lab data reviewed) Problem List - Problems (1) Syncope Code(s): R55 - SYNCOPE AND COLLAPSE Qualifiers: Syncope type: unspecified Qualified Code(s): R55 - Syncope and collapse (2) Cancer of left breast, stage 4 Code(s): C50.912 - MALIGNANT NEOPLASM OF UNSPECIFIED SITE OF LEFT FEMALE BREAST (3) Cardiomyopathy due to chemotherapy Code(s): I42.7 - CARDIOMYOPATHY DUE TO DRUG AND EXTERNAL AGENT; T45.1X5A - ADVERSE EFFECT OF ANTINEOPLASTIC AND IMMUNOSUP DRUGS, INIT (4) Diabetes Code(s): E11.9 - TYPE 2 DIABETES MELLITUS WITHOUT COMPLICATIONS (5) Fever Code(s): R50.9 - FEVER, UNSPECIFIED (6) Pneumonia Code(s): J18.9 - PNEUMONIA, UNSPECIFIED ORGANISM (7) Radiation pneumonitis Code(s): J70.0 - ACUTE PULMONARY MANIFESTATIONS DUE TO RADIATION (8) Shortness of breath Code(s): R06.02 - SHORTNESS OF BREATH (9) Hypotension Code(s): I95.9 - HYPOTENSION, UNSPECIFIED Assessment/Plan Assessment/plan: acute syncope and collapse, acute hyponatremia, acute hypotension, cardiomyopathy, stage 4 breast cancer, HTN, HLD, NIDDM; IV fluids for hypotension and repletion of electrolytes, DVT/GI prophylaxis, consult to Cardiology, admit to Telemetry, WILL stockings, physical therapy.
[2020-04-01] MEDS ORDERED: LACTATED RINGERS SOLUTION 1,000 ML/1,000 ML INFUS.BAG IV SCH (19:45)
[2020-04-01] MEDS ORDERED: ATORVASTATIN CA 40 MG TABLET (FP) ONE (20:12)
[2020-04-01] MEDS ORDERED: ENOXAPARIN NA (PORCINE) 40 MG/0.4 ML DISP.SYRIN SQ ONE (20:12)
[2020-04-01] MEDS ORDERED: PANTOPRAZOLE 40 MG TABLET ONE (20:12)
[2020-04-01] MEDS: ENOXAPARIN NA (PORCINE) 40 MG/0.4 ML DISP.SYRIN SQ SCH (20:22)
[2020-04-01] MEDS: PANTOPRAZOLE 40 MG TABLET PO SCH (20:23)
[2020-04-01] MEDS: ATORVASTATIN CA 40 MG TABLET (FP) PO SCH (22:46)
[2020-04-02] MEDS ORDERED: LEVOTHYROXINE NA 25 MCG TABLET (FP) ONE (07:19)
[2020-04-02] MEDS ORDERED: LISINOPRIL 5 MG TABLET (FP) ONE (07:19)
[2020-04-02] MEDS ORDERED: PANTOPRAZOLE 40 MG TABLET ONE (07:19)
[2020-04-02] MEDS ORDERED: ENOXAPARIN NA (PORCINE) 40 MG/0.4 ML DISP.SYRIN SQ ONE (07:19)
[2020-04-02] MEDS ORDERED: metFORMIN HCL 500 MG TABLET (FP) ONE (07:19)
[2020-04-02 07:27] LABS: BASO % 0.7 % (0-2.0); EOS % 3.4 % (0-4.5); HEMATOCRIT 30.8 % (32.4-45.2); HEMOGLOBIN 10.2 GM/dL (10.7-15.3); LYMPH % 19.1 % (8-40); MCH 27.1 pg (25.7-33.7); MEAN CELL VOLUME 82.2 fl (80-96); MEAN PLT VOLUME 7.3 fl (7.5-11.1); MONO % 7.5 % (3.8-10.2); NEUT % 69.3 % (42.8-82.8); PLATELET COUNT 304 K/MM3 (134-434); RBC 3.74 M/mm3 (3.60-5.2); RDW 16.2 % (11.6-15.6); WHITE BLOOD COUNT 7.6 K/mm3 (4.0-10.0)
[2020-04-02] MEDS: metFORMIN HCL 500 MG TABLET (FP) PO SCH ×2 (07:32→17:02)
[2020-04-02] MEDS: Insulin (LOG) Aspart 100 UNITS/ML VIAL SQ SCH ×2 (07:33→17:01)
[2020-04-02] MEDS: LEVOTHYROXINE NA 50 MCG TABLET (FP) PO SCH (07:33)
[2020-04-02 07:51] LABS: ALBUMIN 3.3 g/dl (3.4-5.0); BILIRUBIN,TOTAL 0.5 mg/dL (0.2-1); BLOOD UREA NITROGEN 8.9 mg/dL (7-18); CALCIUM 9.1 mg/dL (8.5-10.1); CREATININE 0.8 mg/dL (0.55-1.3); TOT PROT 6.6 g/dl (6.4-8.2)
[2020-04-02] MEDS ORDERED: LACTATED RINGERS SOLUTION 1,000 ML/1,000 ML INFUS.BAG IV SCH (08:53)
--- NOTE | 2020-04-02 08:53 | PN ---
Progress Note, Physician Chief Complaint: Patient seen and examined at the bedside, no acute events from last night, no dizziness, headache or nausea and vomiting. History of Present Illness: This 69 yr old female with PMH of stage 4 breast cancer, s/p bilateral mastectomy, on chemotherapy, cardiomyopathy, hypothyroidism, HTN, NIDDM, HLD admitted via ER with an acute syncope and collapse 2 days prior to admission. - Current Medication List Current Medications: Active Medications Atorvastatin Calcium (Lipitor -) 40 mg PO HS COUNTS INCLUDE 234 BEDS AT THE [facility] Last Admin: 04/01/20 22:46 Dose: 40 mg Documented by: Enoxaparin Sodium (Lovenox -) 40 mg SQ DAILY COUNTS INCLUDE 234 BEDS AT THE [facility] Last Admin: 04/01/20 20:22 Dose: 40 mg Documented by: Lactated Ringer's (Lactated Ringers Solution) 1,000 ml in 1,000 mls @ 75 mls/hr IV ASDIR COUNTS INCLUDE 234 BEDS AT THE [facility] Last Admin: 04/01/20 20:23 Dose: 75 mls/hr Documented by: Insulin Aspart (Novolog) 5 units SQ BID@0700,1630 COUNTS INCLUDE 234 BEDS AT THE [facility] Last Admin: 04/02/20 07:33 Dose: Not Given Documented by: Levothyroxine Sodium (Synthroid -) 50 mcg PO DAILY@0700 COUNTS INCLUDE 234 BEDS AT THE [facility] Last Admin: 04/02/20 07:33 Dose: 50 mcg Documented by: Lisinopril (Prinivil) 10 mg PO DAILY COUNTS INCLUDE 234 BEDS AT THE [facility] Metformin HCl (Glucophage -) 1,000 mg PO BID@0700,1630 COUNTS INCLUDE 234 BEDS AT THE [facility] Last Admin: 04/02/20 07:32 Dose: Not Given Documented by: Pantoprazole Sodium (Protonix -) 40 mg PO DAILY COUNTS INCLUDE 234 BEDS AT THE [facility] Last Admin: 04/01/20 20:23 Dose: 40 mg Documented by: - Objective Vital Signs: Vital Signs Temperature 98.0 F 04/02/20 06:20 Pulse Rate 78 04/02/20 06:20 Respiratory Rate 16 04/02/20 06:20 Blood Pressure 176/79 H 04/02/20 06:20 O2 Sat by Pulse Oximetry (%) 100 04/02/20 06:20 Constitutional: Yes: Well Nourished, No Distress, Calm Eyes: Yes: Conjunctiva Clear, EOM Intact HENT: Yes: Atraumatic, Normocephalic Neck: Yes: Supple, Trachea Midline Cardiovascular: Yes: Regular Rate and Rhythm Respiratory: Yes: Regular, CTA Bilaterally Gastrointestinal: Yes: Normal Bowel Sounds, Soft ...Rectal Exam: Yes: Deferred Genitourinary: Yes: WNL Breast(s): Yes: Other (s/p bilateral mastectomy) Musculoskeletal: Yes: WNL Extremities: Yes: WNL Edema: No Peripheral Pulses WNL: Yes Integumentary: Yes: WNL Neurological: Yes: WNL ...Motor Strength: WNL Psychiatric: Yes: WNL Labs: CBC, BMP 04/02/20 06:48 04/02/20 06:00 INR, PTT INR 0.97 (0.83-1.09) 04/01/20 17:00 - ....Imaging Other: Report Reviewed (lab data reviewed) Problem List - Problems (1) Syncope Code(s): R55 - SYNCOPE AND COLLAPSE Qualifiers: Syncope type: unspecified Qualified Code(s): R55 - Syncope and collapse (2) Cancer of left breast, stage 4 Code(s): C50.912 - MALIGNANT NEOPLASM OF UNSPECIFIED SITE OF LEFT FEMALE BREAST (3) Cardiomyopathy due to chemotherapy Code(s): I42.7 - CARDIOMYOPATHY DUE TO DRUG AND EXTERNAL AGENT; T45.1X5A - ADVERSE EFFECT OF ANTINEOPLASTIC AND IMMUNOSUP DRUGS, INIT (4) Diabetes Code(s): E11.9 - TYPE 2 DIABETES MELLITUS WITHOUT COMPLICATIONS (5) Fever Code(s): R50.9 - FEVER, UNSPECIFIED (6) Pneumonia Code(s): J18.9 - PNEUMONIA, UNSPECIFIED ORGANISM (7) Radiation pneumonitis Code(s): J70.0 - ACUTE PULMONARY MANIFESTATIONS DUE TO RADIATION (8) Shortness of breath Code(s): R06.02 - SHORTNESS OF BREATH (9) Hypotension Code(s): I95.9 - HYPOTENSION, UNSPECIFIED Assessment/Plan Assessment/plan: acute syncope and collapse, abnormal ekg, acute anemia, hypothyroidism, stage 4 breast cancer, cardiomyopathy, HTN, NIDDM, HLD, on chemotherapy; IV fluids, consult to Cardiology pending, physical therapy, DVT/GI prophylaxis, atorvastatin for HLD, lisinopril for HTN, levothyroxine for hyp othyroidism, insulin and metformin for NIDDM.
[2020-04-02] MEDS: ENOXAPARIN NA (PORCINE) 40 MG/0.4 ML DISP.SYRIN SQ SCH (09:31)
[2020-04-02] MEDS: LISINOPRIL 10 MG TABLET (FP) PO SCH (09:31)
[2020-04-02] MEDS: PANTOPRAZOLE 40 MG TABLET PO SCH (09:31)
--- NOTE | 2020-04-02 10:19 | CON.CARD ---
Consult Consult Specialty:: Cardiology Referred by:: Hospitalist Medicine Reason for Consultation:: Syncope followed by nausea and vomiting - History of Present Illness Chief Complaint: Syncope followed by nausea and vomiting History of Present Illness: This 69 yr old female with PMH of stage 4 breast cancer, s/p bilateral mastectomy, s/p cholecystectomy, cardiomyopathy, HTN, NIDDM, HLD admitted via ER with syncope followed by nausea and emesis 2 days ago, denies recurrence since then, tolerating lunch. 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 Cardio/Vascular: Yes: HTN, Hyperlipdemia Pulmonary: No: Asthma, Bronchitis, Cancer, COPD, O2 Dependent, Pneumonia, Previously Intubated, Pulmonary Embolus, Pulmonary Fibrosis, Sleep Apnea, Other Gastrointestinal: Yes: GERD Hepatobiliary: Yes: Cholelithiasis Renal/: No: Renal Failure, Renal Inusuff, BPH, Cancer, Hematuria, Hemodialysis, Neurogenic Bladder, Renal Calculi, UTI, Other Infectious Disease: No: AIDS, C-Diff, Herpes Zoster, HIV, MRSA, STD's, Tuberculosis, VREF, Other Psych: No: Addictions, Anxiety, Bipolar, Depression, Panic, Psychosis, Schizophrenia, Other Musculoskeletal: No: Bursitis, Chronic low back pain, Hemiparesis, Hemiplegia, Osteoarthritis, Paraplegia, Other Rheumatology: No: Fibromyalgia, Gout, Lupus, Rheumatoid Arthritis, Sarcoidosis, Vasculitis, Other ENT: No: Allergic Rhinitis, Sinusitis, Other Endocrine: Yes: Diabetes Mellitus Dermatology: No: Basal Cell, Cellulitis, Eczema, Melanoma, Psoriasis, Squamous Cell, Other - Past Surgical History Past Surgical History: Yes: Cholecystectomy, Mastectomy - Alcohol/Substance Use Hx Alcohol Use: No History of Substance Use: reports: None - Smoking History Smoking history: Never smoked Have you smoked in the past 12 months: No If you are a former smoker, when did you quit?: 30YRS - Social History ADL: Independent Home Medications - Allergies Allergies/Adverse Reactions: Allergies Allergy/AdvReac Type Severity Reaction Status Date / Time No Known Allergies Allergy Verified 04/01/20 16:16 - Home Medications Home Medications: Ambulatory Orders Ergocalciferol [Vitamin D2] 50,000 unit PO SA 10/05/17 Insulin Glargine,Hum.rec.anlog [Toujeo Solostar] 10 unit SQ AM 10/05/17 Levothyroxine [Synthroid -] 50 mcg PO DAILY 10/05/17 Lisinopril 10 mg PO DAILY 10/05/17 Metformin HCl [Glucophage] 1,000 mg PO BID 10/05/17 Simvastatin [Zocor -] 40 mg PO HS 10/05/17 Review of Systems - Review of Systems Gastrointestinal: reports: Nausea, Vomiting Neurological: reports: Syncope Vital Signs: Vital Signs Temperature 98.0 F 04/02/20 09:45 Pulse Rate 87 04/02/20 09:45 Respiratory Rate 19 04/02/20 09:45 Blood Pressure 126/78 04/02/20 09:45 O2 Sat by Pulse Oximetry (%) 100 04/02/20 09:45 Constitutional: Yes: No Distress, Calm Neck: Yes: Supple Respiratory: Yes: Regular, CTA Bilaterally Gastrointestinal: Yes: Normal Bowel Sounds, Soft Cardiovascular: Yes: Regular Rate and Rhythm JVD: No Carotid Bruit: No Heart Sounds: Yes: S1, S2 Edema: No - Other Data Labs, Other Data: CBC, BMP 04/02/20 06:48 04/02/20 06:00 INR, PTT INR 0.97 (0.83-1.09) 04/01/20 17:00 Troponin, BNP 04/01/20 04/01/20 17:00 17:00 Troponin I < 0.02 < 0.02 Troponin, BNP 04/01/20 04/01/20 17:00 17:00 Troponin I < 0.02 < 0.02 Imaging - Results Chest X-ray: Report Reviewed (NAD) Cat Scan: Report Reviewed (HCT Negative) Ultrasound: Report Reviewed ([facility] US No DVT) Assessment/Plan rpt ECG 10/14: sinus tach 105 bpm, LAFB, old AWMI with TWI v2-- no change vs 10/12, 10/06 cxr 10/12: left hemidiaphragm elevation with shallow inspiration resulting in accentuated pulmonary vasculature. no chf. cxr 10/08: images, report reviewed. progressive pulmonary changes bilaterally. also with cephalization pattern likely, ? L effusion CTA chest 10/05: no PE. fibrotic changes/pleural thickening L apex. L base ATX. no congestion, effusions. ? bony met.s Echo 10/06/2017: tds. grossly nl lv fn. impaired relaxation. grossly nl rv size/fn. mv not well visualized. no pericardial effusion mibi 04/2017: no ecg changes with exercise, nl mpi, lvef 47% LUE dopplers neg for dvt - Problems (1) Syncope Code(s): R55 - SYNCOPE AND COLLAPSE Qualifiers: Syncope type: unspecified Qualified Code(s): R55 - Syncope and collapse (2) Cancer of left breast, stage 4 Code(s): C50.912 - MALIGNANT NEOPLASM OF UNSPECIFIED SITE OF LEFT FEMALE BREAST (3) Cardiomyopathy due to chemotherapy Code(s): I42.7 - CARDIOMYOPATHY DUE TO DRUG AND EXTERNAL AGENT; T45.1X5A - ADVERSE EFFECT OF ANTINEOPLASTIC AND IMMUNOSUP DRUGS, INIT (4) Diabetes Code(s): E11.9 - TYPE 2 DIABETES MELLITUS WITHOUT COMPLICATIONS (5) Fever Code(s): R50.9 - FEVER, UNSPECIFIED (6) Pneumonia Code(s): J18.9 - PNEUMONIA, UNSPECIFIED ORGANISM (7) Radiation pneumonitis Code(s): J70.0 - ACUTE PULMONARY MANIFESTATIONS DUE TO RADIATION (8) Shortness of breath Code(s): R06.02 - SHORTNESS OF BREATH (9) Hypotension Code(s): I95.9 - HYPOTENSION, UNSPECIFIED Assessment/Plan 1. Syncope 2. Anemia 3. Hypothyroidism 4. stage 4 breast cancer 5. cardiomyopathy (chemo-induced) resolved 6. HTN 7. Type 2 DM 8. Hyperlipidemia 9. H/o radiation pneumonitis P:1. Not orthostatic, ruled out for AL, cardiac monitor technician r/o arrhythmia 2. Continue lisinopril 10 qd, Zocor 40 qhs as hemodynamics tolerate 3. Thank you for consultative opportunity
[2020-04-02 10:25] LABS: PH,URINE >= 9.0 (5.0-8.0); URINE APPEARANCE CLEAR; URINE BILIRUBIN NEGATIVE (NEGATIVE); URINE COLOR YELLOW; URINE GLUCOSE (UA) NEGATIVE (NEGATIVE); URINE KETONE NEGATIVE (NEGATIVE); URINE LEUK ESTERASE NEGATIVE (NEGATIVE); URINE NITRITE NEGATIVE (NEGATIVE); URINE PROTEIN NEGATIVE (NEGATIVE); URINE UROBILINOGEN 0.2 mg/dL (0.2-1.0)
--- NOTE | 2020-04-02 12:12 | EKG ---
Test Reason : Blood Pressure : / mmHG Vent. Rate : 081 BPM Atrial Rate : 081 BPM P-R Int : 190 ms QRS Dur : 092 ms QT Int : 394 ms P-R-T Axes : 021 -48 012 degrees QTc Int : 457 ms NORMAL SINUS RHYTHM LOW VOLTAGE QRS INCOMPLETE RIGHT BUNDLE BRANCH BLOCK LEFT ANTERIOR FASCICULAR BLOCK CANNOT RULE OUT INFERIOR INFARCT (CITED ON OR BEFORE 01-APR-2020) POSSIBLE ANTEROLATERAL INFARCT (CITED ON OR BEFORE 01-APR-2020) ABNORMAL ECG WHEN COMPARED WITH ECG OF 14-OCT-2017 10:25, INCOMPLETE RIGHT BUNDLE BRANCH BLOCK IS NOW PRESENT Confirmed by ANDREINA CARRERO MD ([id number]) on 04/02/2020 12:12:26 PM Referred By: Confirmed By:ANDREINA CARRERO MD
[2020-04-02 15:51] VITALS: BMI 31.9
[2020-04-02] MEDS: ATORVASTATIN CA 40 MG TABLET (FP) PO SCH (21:31)
[2020-04-03] MEDS: LEVOTHYROXINE NA 50 MCG TABLET (FP) PO SCH (06:32)
[2020-04-03] MEDS: metFORMIN HCL 500 MG TABLET (FP) PO SCH (06:32)
[2020-04-03] MEDS: Insulin (LOG) Aspart 100 UNITS/ML VIAL SQ SCH (06:33)
[2020-04-03 07:08] LABS: BASO % 0.7 % (0-2.0); LYMPH % 17.2 % (8-40); MCH 26.6 pg (25.7-33.7); MCHC 32.2 g/dl (32.0-36.0); MEAN CELL VOLUME 82.8 fl (80-96); MEAN PLT VOLUME 7.4 fl (7.5-11.1); MONO % 8.1 % (3.8-10.2); PLATELET COUNT 295 K/MM3 (134-434); RBC 3.74 M/mm3 (3.60-5.2); RDW 16.5 % (11.6-15.6); WHITE BLOOD COUNT 7.7 K/mm3 (4.0-10.0)
[2020-04-03 07:27] LABS: ALBUMIN 3.1 g/dl (3.4-5.0); BILIRUBIN,TOTAL 0.7 mg/dL (0.2-1); BLOOD UREA NITROGEN 9.3 mg/dL (7-18); CALCIUM 9.4 mg/dL (8.5-10.1); CREATININE 0.9 mg/dL (0.55-1.3); TOT PROT 6.5 g/dl (6.4-8.2)
--- NOTE | 2020-04-03 08:26 | PN ---
Progress Note, Physician Chief Complaint: Patient seen and examined at the bedside, no acute events from last night, afebrile, no dizziness. History of Present Illness: This 69 yr old female with PMH of stage 4 breast cancer, s/p bilateral mastectomy, on chemotherapy, drug induced cardiomyopathy, HTN, NIDDM, HLD admitted via ER with an acute syncope and collapse 2 days prior to admission. - Current Medication List Current Medications: Active Medications Atorvastatin Calcium (Lipitor -) 40 mg PO HS [facility] Last Admin: 04/02/20 21:31 Dose: 40 mg Documented by: Enoxaparin Sodium (Lovenox -) 40 mg SQ DAILY [facility] Last Admin: 04/02/20 09:31 Dose: 40 mg Documented by: Insulin Aspart (Novolog) 5 units SQ BID@0700,1630 [facility] Last Admin: 04/03/20 06:33 Dose: Not Given Documented by: Levothyroxine Sodium (Synthroid -) 50 mcg PO DAILY@0700 [facility] Last Admin: 04/03/20 06:32 Dose: 50 mcg Documented by: Lisinopril (Prinivil) 10 mg PO DAILY [facility] Last Admin: 04/02/20 09:31 Dose: 10 mg Documented by: Metformin HCl (Glucophage -) 1,000 mg PO BID@0700,1630 [facility] Last Admin: 04/03/20 06:32 Dose: 1,000 mg Documented by: Pantoprazole Sodium (Protonix -) 40 mg PO DAILY [facility] Last Admin: 04/02/20 09:31 Dose: 40 mg Documented by: - Objective Vital Signs: Vital Signs Temperature 98.0 F 04/03/20 06:00 Pulse Rate 77 04/03/20 06:00 Respiratory Rate 20 04/03/20 06:00 Blood Pressure 149/79 04/03/20 06:00 O2 Sat by Pulse Oximetry (%) 96 04/02/20 21:00 Constitutional: Yes: Well Nourished, No Distress, Calm Eyes: Yes: Conjunctiva Clear, EOM Intact HENT: Yes: Atraumatic, Normocephalic Neck: Yes: Supple, Trachea Midline Cardiovascular: Yes: Regular Rate and Rhythm Respiratory: Yes: Regular, CTA Bilaterally Gastrointestinal: Yes: Normal Bowel Sounds, Soft ...Rectal Exam: Yes: Deferred Genitourinary: Yes: WNL Breast(s): Yes: WNL Musculoskeletal: Yes: WNL Extremities: Yes: WNL Edema: No Peripheral Pulses WNL: Yes Integumentary: Yes: WNL Neurological: Yes: WNL ...Motor Strength: WNL Psychiatric: Yes: WNL Labs: CBC, BMP 04/03/20 06:05 04/03/20 06:05 INR, PTT INR 0.97 (0.83-1.09) 04/01/20 17:00 - ....Imaging Other: Report Reviewed (lab data reviewed) Problem List - Problems (1) Syncope Code(s): R55 - SYNCOPE AND COLLAPSE Qualifiers: Syncope type: unspecified Qualified Code(s): R55 - Syncope and collapse (2) Cancer of left breast, stage 4 Code(s): C50.912 - MALIGNANT NEOPLASM OF UNSPECIFIED SITE OF LEFT FEMALE BREAST (3) Cardiomyopathy due to chemotherapy Code(s): I42.7 - CARDIOMYOPATHY DUE TO DRUG AND EXTERNAL AGENT; T45.1X5A - ADVERSE EFFECT OF ANTINEOPLASTIC AND IMMUNOSUP DRUGS, INIT (4) Diabetes Code(s): E11.9 - TYPE 2 DIABETES MELLITUS WITHOUT COMPLICATIONS (5) Fever Code(s): R50.9 - FEVER, UNSPECIFIED (6) Pneumonia Code(s): J18.9 - PNEUMONIA, UNSPECIFIED ORGANISM (7) Radiation pneumonitis Code(s): J70.0 - ACUTE PULMONARY MANIFESTATIONS DUE TO RADIATION (8) Shortness of breath Code(s): R06.02 - SHORTNESS OF BREATH (9) Hypotension Code(s): I95.9 - HYPOTENSION, UNSPECIFIED Assessment/Plan Assessmeent/plan: acute syncope and collapse, acute hypotension, dehydration, ?cardiac arrhythmia, stage 4 breast cancer, s/p bilateral mastectomy, on chemotherapy, chemotherapy induced cardiomyopathy, HTN, NIDDM, HLD, hypothyroidism; DVT/GI prophylaxis, on telemetry, insulin and metformin for NIDDM, lisinopril for HTN, atorvastatin for HLD, levothyroxine for hypothyroidism, physical therapy.
[2020-04-03] MEDS: LISINOPRIL 10 MG TABLET (FP) PO SCH (09:02)
[2020-04-03] MEDS: ENOXAPARIN NA (PORCINE) 40 MG/0.4 ML DISP.SYRIN SQ SCH (09:02)
[2020-04-03] MEDS: PANTOPRAZOLE 40 MG TABLET PO SCH (09:02)
--- NOTE | 2020-04-03 10:02 | PN ---
Progress Note (short form) - Note Progress Note: This 69 yr old female with PMH of stage 4 breast cancer, s/p bilateral mastectomy, s/p cholecystectomy, cardiomyopathy, HTN, NIDDM, HLD admitted via ER with syncope followed by nausea and emesis 2 days ago, denies recurrence since then, received IVF; 04/03;No acute cardiac events; no more syncopal episodes; IVF d/c'ed as BP increased - Vital Signs Temperature 98.0 F 04/03/20 06:00 Pulse Rate 77 04/03/20 06:00 Respiratory Rate 20 04/03/20 06:00 Blood Pressure 149/79 04/03/20 06:00 O2 Sat by Pulse Oximetry (%) 96 04/02/20 21:00 Respiratory: Yes: Regular, CTA Bilaterally Gastrointestinal: Yes: Normal Bowel Sounds, Soft Cardiovascular: Yes: Regular Rate and Rhythm JVD: No Carotid Bruit: No Edema: No - Other Data Labs, Other Data: CBC, BMP 04/03/20 06:05 04/03/20 06:05 Troponin, BNP 04/01/20 04/01/20 17:00 17:00 Troponin I < 0.02 < 0.02 Active Medications Atorvastatin Calcium (Lipitor -) 40 mg PO HS [facility] Last Admin: 04/02/20 21:31 Dose: 40 mg Documented by: Enoxaparin Sodium (Lovenox -) 40 mg SQ DAILY [facility] Last Admin: 04/03/20 09:02 Dose: 40 mg Documented by: Insulin Aspart (Novolog) 5 units SQ BID@0700,1630 [facility] Last Admin: 04/03/20 06:33 Dose: Not Given Documented by: Levothyroxine Sodium (Synthroid -) 50 mcg PO DAILY@0700 [facility] Last Admin: 04/03/20 06:32 Dose: 50 mcg Documented by: Lisinopril (Prinivil) 10 mg PO DAILY [facility] Last Admin: 04/03/20 09:02 Dose: 10 mg Documented by: Metformin HCl (Glucophage -) 1,000 mg PO BID@0700,1630 [facility] Last Admin: 04/03/20 06:32 Dose: 1,000 mg Documented by: Pantoprazole Sodium (Protonix -) 40 mg PO DAILY [facility] Last Admin: 04/03/20 09:02 Dose: 40 mg Documented by: Imaging - Results Chest X-ray: Report Reviewed (NAD) Cat Scan: Report Reviewed (HCT Negative) Ultrasound: Report Reviewed (Vas US No DVT) Assessment/Plan rpt ECG 10/14: sinus tach 105 bpm, LAFB, old AWMI with TWI v2-- no change vs 10/12, 10/06 cxr 10/12: left hemidiaphragm elevation with shallow inspiration resulting in accentuated pulmonary vasculature. no chf. cxr 10/08: images, report reviewed. progressive pulmonary changes bilaterally. also with cephalization pattern likely, ? L effusion CTA chest 10/05: no PE. fibrotic changes/pleural thickening L apex. L base ATX. no congestion, effusions. ? bony met.s Echo 10/06/2017: tds. grossly nl lv fn. impaired relaxation. grossly nl rv size/fn. mv not well visualized. no pericardial effusion mibi 04/2017: no ecg changes with exercise, nl mpi, lvef 47% LUE dopplers neg for dvt - Problems (1) Syncope Code(s): R55 - SYNCOPE AND COLLAPSE Qualifiers: Syncope type: unspecified Qualified Code(s): R55 - Syncope and collapse (2) Cancer of left breast, stage 4 Code(s): C50.912 - MALIGNANT NEOPLASM OF UNSPECIFIED SITE OF LEFT FEMALE BREAST (3) Cardiomyopathy due to chemotherapy Code(s): I42.7 - CARDIOMYOPATHY DUE TO DRUG AND EXTERNAL AGENT; T45.1X5A - ADVERSE EFFECT OF ANTINEOPLASTIC AND IMMUNOSUP DRUGS, INIT (4) Diabetes Code(s): E11.9 - TYPE 2 DIABETES MELLITUS WITHOUT COMPLICATIONS (5) Fever Code(s): R50.9 - FEVER, UNSPECIFIED (6) Pneumonia Code(s): J18.9 - PNEUMONIA, UNSPECIFIED ORGANISM (7) Radiation pneumonitis Code(s): J70.0 - ACUTE PULMONARY MANIFESTATIONS DUE TO RADIATION (8) Shortness of breath Code(s): R06.02 - SHORTNESS OF BREATH (9) Hypotension Code(s): I95.9 - HYPOTENSION, UNSPECIFIED Assessment/Plan 1. Syncope 2. Anemia 3. Hypothyroidism 4. stage 4 breast cancer 5. cardiomyopathy (chemo-induced) resolved 6. HTN 7. Type 2 DM 8. Hyperlipidemia 9. H/o radiation pneumonitis P: 1. Not orthostatic, ruled out for SC, no arrhythmias 2. Continue lisinopril 10 qd, Zocor 40 qhs as hemodynamics tolerate 3. cont statin 4.F/U as outpatient
[2020-04-03 10:46] VITALS: TEMP 98.1
[2020-04-03 16:03] VITALS: BP 161/69; PULSE 120
--- NOTE | 2020-04-03 16:13 | DS ---
Physical Examination Vital Signs: Vital Signs Temperature 98.1 F 04/03/20 14:30 Pulse Rate 120 H 04/03/20 14:30 Respiratory Rate 20 04/03/20 14:30 Blood Pressure 161/69 04/03/20 14:30 O2 Sat by Pulse Oximetry (%) 98 04/03/20 10:00 Constitutional: Yes: Well Nourished, No Distress, Calm Eyes: Yes: Conjunctiva Clear, EOM Intact HENT: Yes: Atraumatic Neck: Yes: Supple, Trachea Midline Cardiovascular: Yes: Regular Rate and Rhythm Respiratory: Yes: Regular, CTA Bilaterally Gastrointestinal: Yes: Normal Bowel Sounds, Soft ...Rectal Exam: Yes: Deferred Renal/: Yes: WNL Breast(s): Yes: Other (s/p bilateral mastectomy) Musculoskeletal: Yes: WNL Edema: No Peripheral Pulses WNL: Yes Integumentary: Yes: WNL Neurological: Yes: WNL ...Motor Strength: WNL Psychiatric: Yes: WNL Labs: CBC, BMP 04/03/20 06:05 04/03/20 06:05 Discharge Summary Problems reviewed: Yes Reason For Visit: SYNCOPE Current Active Problems Hypotension (Acute) Syncope (Acute) Condition: Fair - Instructions Diet, Activity, Other Instructions: Continue home meds. Activity as tolerated. Follow up with within one week. Total time spent over 30 minutes. Referrals: Latanya Mathur MD [Primary Care Provider] - Disposition: HOME - Home Medications Comprehensive Discharge Medication List: Ambulatory Orders Ergocalciferol [Vitamin D2] 50,000 unit PO SA 10/05/17 Insulin Glargine,Hum.rec.anlog [Touyovana Solostar] 10 unit SQ AM 10/05/17 Levothyroxine [Synthroid -] 50 mcg PO DAILY 10/05/17 Lisinopril 10 mg PO DAILY 10/05/17 Metformin HCl [Glucophage] 1,000 mg PO BID 10/05/17 Simvastatin [Zocor -] 40 mg PO HS 10/05/17 Atorvastatin Ca [Lipitor] 40 mg PO HS tablet 04/03/20 Levothyroxine [Synthroid -] 50 mcg PO DAILY@0700 tablet 04/03/20 Lisinopril [Prinivil] 10 mg PO DAILY tablet 04/03/20 metFORMIN HCL [Glucophage -] 1,000 mg PO BID@0700,1630 tablet 04/03/20
== END 2020-04-03 16:42 | disposition home or self-care (01) | DRG 312 ==
LOC: JER 16:09 → JERBED 18:56 → J4W 04-02 15:27
PROVIDERS: ADMIT Internal Medicine; ATTEND Internal Medicine
DX: R55 Syncope and collapse (principal); E87.1 Hypo-osmolality and hyponatremia; I42.7 Cardiomyopathy due to drug and external agent; E86.0 Dehydration; D64.9 Anemia, unspecified; E03.9 Hypothyroidism, unspecified; C50.912 Malignant neoplasm of unspecified site of left female breast; I95.9 Hypotension, unspecified; Z86.73 Personal history of transient ischemic attack (TIA), and cerebral infarction without residual deficits; J44.9 Chronic obstructive pulmonary disease, unspecified; E11.9 Type 2 diabetes mellitus without complications; I45.10 Unspecified right bundle-branch block; K21.9 Gastro-esophageal reflux disease without esophagitis; R50.9 Fever, unspecified; T45.1X5A Adverse effect of antineoplastic and immunosuppressive drugs, initial encounter
CPT/HCPCS: 36415; 70450-TC; 71045-TC-FY; 80053; 81003; 82550; 82962; 83036; 84439; 84443; 84484; 85025; 85610; 85730; 93005; 93010; 93970-TC; 97116-GP; 97161-GP; 99285-25; U0003

== ENCOUNTER 2021-10-14 12:42 | Inpatient (IN) | payer OTHER ==
[2021-10-14 15:01] LABS: BASO % 0.7 % (0-2.0); EOS % 2.3 % (0-4.5); HEMOGLOBIN 10.4 GM/dL (10.7-15.3); LYMPH % 12.2 % (8-40); MCHC 33.7 g/dl (32.0-36.0); MEAN CELL VOLUME 89.1 fl (80-96); MEAN PLT VOLUME 6.3 fl (7.5-11.1); MONO % 9.7 % (3.8-10.2); NEUT % 75.1 % (42.8-82.8); PLATELET COUNT 418 10^3/uL (134-434); RBC 3.48 M/mm3 (3.60-5.2); RDW 16.7 % (11.6-15.6); WHITE BLOOD COUNT 6.9 K/mm3 (4.0-10.0)
[2021-10-14 15:11] LABS: INR 1.07 (0.83-1.09); PROTHROMBIN TIME (PATIENT) 12.3 SEC (9.7-13.0)
[2021-10-14 15:18] LABS: ALBUMIN 3.1 g/dl (3.4-5.0); CALCIUM 9.2 mg/dL (8.5-10.1)
[2021-10-14 15:19] LABS: BLOOD UREA NITROGEN 21.2 mg/dL (7-18)
[2021-10-14 15:22] LABS: CREATININE 1.1 mg/dL (0.55-1.3)
[2021-10-14 15:23] LABS: BILIRUBIN,TOTAL 0.4 mg/dL (0.2-1); TOT PROT 6.6 g/dl (6.4-8.2)
[2021-10-14] MEDS ORDERED: ACETAMINOPHEN 1000 MG/100 ML BAG IVPB ONE (17:34)
[2021-10-14] MEDS ORDERED: LIDOCAINE 5% TOPICAL PATCH TP ONE (17:34)
[2021-10-14] MEDS ORDERED: LIDOCAINE 5% TOPICAL PATCH ONE (18:26)
[2021-10-14] MEDS ORDERED: ACETAMINOPHEN INJECTION 100 ML IVPB ONE (18:26)
[2021-10-14] MEDS ORDERED: DEXAMETHASONE SOD PHOSPHATE 10 MG/1 ML VIAL IVPUSH ONE (20:53)
[2021-10-14] MEDS ORDERED: DEXAMETHASONE SOD PHOSPHATE 10 MG/1 ML VIAL ONE (21:46)
[2021-10-14] MEDS ORDERED: ENOXAPARIN NA (PORCINE) 40 MG/0.4 ML DISP.SYRIN SQ ONE (21:47)
[2021-10-14] MEDS ORDERED: PANTOPRAZOLE 40 MG TABLET ONE (21:47)
[2021-10-14] MEDS ORDERED: ATORVASTATIN CA 40 MG TABLET (FP) ONE (21:47)
[2021-10-14] MEDS: PANTOPRAZOLE 40 MG TABLET PO SCH (21:55)
[2021-10-14] MEDS: ENOXAPARIN NA (PORCINE) 40 MG/0.4 ML DISP.SYRIN SQ SCH (21:55)
[2021-10-14] MEDS: ATORVASTATIN CA 40 MG TABLET (FP) PO SCH (21:55)
[2021-10-14] MEDS ORDERED: LIDOCAINE PATCH REMOVAL MC ONE (22:00)
[2021-10-15 01:47] VITALS: BMI 30.9
[2021-10-15] MEDS: LEVOTHYROXINE NA 50 MCG TABLET (FP) PO SCH ×2 (05:42→10:17)
[2021-10-15] MEDS: INSULIN SLIDING SCALE (NOVOLOG) 1 VIAL SQ SCH ×2 (06:00→16:09)
[2021-10-15] MEDS ORDERED: INSULIN SLIDING SCALE (NOVOLOG) 1 VIAL SQ SCH (07:00)
[2021-10-15] MEDS: INSULIN (LEVEMIR) 100 UNITS/ML UNITS SQ SCH ×2 (09:08→10:16)
[2021-10-15 10:18] LABS: BASO % 0.1 % (0-2.0); EOS % 0.1 % (0-4.5); HEMATOCRIT 33.8 % (32.4-45.2); HEMOGLOBIN 11.1 GM/dL (10.7-15.3); LYMPH % 9.1 % (8-40); MCH 29.7 pg (25.7-33.7); MCHC 32.7 g/dl (32.0-36.0); MEAN CELL VOLUME 90.8 fl (80-96); MEAN PLT VOLUME 6.9 fl (7.5-11.1); MONO % 1.6 % (3.8-10.2); NEUT % 89.1 % (42.8-82.8); PLATELET COUNT 447 10^3/uL (134-434); RBC 3.72 M/mm3 (3.60-5.2); RDW 16.5 % (11.6-15.6); WHITE BLOOD COUNT 6.6 K/mm3 (4.0-10.0)
[2021-10-15] MEDS: PANTOPRAZOLE 40 MG TABLET PO SCH (10:21)
[2021-10-15] MEDS: LISINOPRIL 20 MG TABLET PO SCH (10:22)
[2021-10-15] MEDS: ENOXAPARIN NA (PORCINE) 40 MG/0.4 ML DISP.SYRIN SQ SCH (10:23)
[2021-10-15] MEDS: LIDOCAINE 5% TOPICAL PATCH TP SCH (10:23)
[2021-10-15 10:35] LABS: CALCIUM 9.4 mg/dL (8.5-10.1)
[2021-10-15 10:39] LABS: CREATININE 0.8 mg/dL (0.55-1.3)
[2021-10-15 10:40] LABS: BILIRUBIN,TOTAL 0.4 mg/dL (0.2-1)
[2021-10-15 10:41] LABS: TOT PROT 6.8 g/dl (6.4-8.2)
[2021-10-15] MEDS: CYANOCOBALAMIN 1,000 MCG TABLET (FP) PO SCH (15:49)
[2021-10-15] MEDS: CHOLECALCIFEROL (VIT D3) 5000 UNITS (125 MCG) CAP PO SCH (15:51)
[2021-10-15] MEDS ORDERED: INSULIN (NOVOLOG) ASPART 100 UNITS/ML 10ML VIAL ONE (16:20)
[2021-10-15] MEDS: LIDOCAINE PATCH REMOVAL MC SCH (21:01)
[2021-10-15] MEDS: ATORVASTATIN CA 40 MG TABLET (FP) PO SCH (21:01)
[2021-10-15] MEDS: PREGABALIN 50 MG CAPSULE PO SCH (21:01)
[2021-10-15 22:55] LABS: EPI CELLS 5 /uL (0-25.1); HYALINE CASTS 0 /uL (0-3.1); PH,URINE 5.5 (5.0-8.0); URINE APPEARANCE CLEAR; URINE BACTERIA 1 /uL (0-1359); URINE BILIRUBIN NEGATIVE (NEGATIVE); URINE COLOR YELLOW; URINE GLUCOSE (UA) NEGATIVE (NEGATIVE); URINE KETONE NEGATIVE (NEGATIVE); URINE LEUK ESTERASE NEGATIVE (NEGATIVE); URINE NITRITE NEGATIVE (NEGATIVE); URINE PROTEIN TRACE (NEGATIVE); URINE RBC 8 /uL (0-23.9); URINE UROBILINOGEN 0.2 mg/dL (0.2-1.0); URINE WBC 4 /uL (0-25.8)
[2021-10-16] MEDS ORDERED: PIPERACILLIN/TAZOBACTAM 3.375 GM VIAL IVPB ONE ×3 (00:40→16:07)
[2021-10-16] MEDS ORDERED: DEXTROSE 5%-WATER - 50 ML IVPB ONE ×3 (00:40→16:07)
[2021-10-16] MEDS: PIPERACILLIN/TAZOB 3.375 GM 3.375 GM in DEXTROSE 5%-WATER - 50 ML IVPB SCH ×3 (01:02→18:38)
[2021-10-16] MEDS: INSULIN SLIDING SCALE (NOVOLOG) 1 VIAL SQ SCH ×2 (06:40→16:10)
[2021-10-16] MEDS: ACETAMINOPHEN 325 MG TABLET (FP) PO PRN ×2 (07:40→21:31)
[2021-10-16] MEDS ORDERED: diazePAM 5 MG TABLET PO ONE ×2 (09:42→16:15)
[2021-10-16 09:47] LABS: BASO % 0.2 % (0-2.0); HEMATOCRIT 31.4 % (32.4-45.2); HEMOGLOBIN 10.4 GM/dL (10.7-15.3); LYMPH % 8.9 % (8-40); MCH 29.6 pg (25.7-33.7); MCHC 33.2 g/dl (32.0-36.0); MEAN CELL VOLUME 89.1 fl (80-96); MEAN PLT VOLUME 7.1 fl (7.5-11.1); MONO % 10.5 % (3.8-10.2); NEUT % 80.4 % (42.8-82.8); PLATELET COUNT 470 10^3/uL (134-434); RBC 3.52 M/mm3 (3.60-5.2); RDW 16.3 % (11.6-15.6); WHITE BLOOD COUNT 8.5 K/mm3 (4.0-10.0)
[2021-10-16] MEDS: LIDOCAINE 5% TOPICAL PATCH TP SCH (09:59)
[2021-10-16] MEDS: ENOXAPARIN NA (PORCINE) 40 MG/0.4 ML DISP.SYRIN SQ SCH (10:00)
[2021-10-16] MEDS: INSULIN (LEVEMIR) 100 UNITS/ML UNITS SQ SCH (10:00)
[2021-10-16] MEDS: PREGABALIN 50 MG CAPSULE PO SCH ×2 (10:00→21:17)
[2021-10-16] MEDS: PANTOPRAZOLE 40 MG TABLET PO SCH (10:00)
[2021-10-16] MEDS: LISINOPRIL 20 MG TABLET PO SCH (10:01)
[2021-10-16] MEDS: CYANOCOBALAMIN 1,000 MCG TABLET (FP) PO SCH (10:02)
[2021-10-16] MEDS: CHOLECALCIFEROL (VIT D3) 5000 UNITS (125 MCG) CAP PO SCH (10:03)
[2021-10-16] MEDS: LEVOTHYROXINE NA 50 MCG TABLET (FP) PO SCH (10:09)
[2021-10-16 10:59] LABS: ERYTHROCYTE SEDIMENTATION RATE 28 mm/hr (0-30)
[2021-10-16] MEDS ORDERED: INSULIN (NOVOLOG) ASPART 100 UNITS/ML 10ML VIAL ONE ×2 (15:14→18:20)
[2021-10-16] MEDS: ALPRAZolam 0.25 MG TABLET PO PRN (15:43)
[2021-10-16] MEDS: ATORVASTATIN CA 40 MG TABLET (FP) PO SCH (21:17)
[2021-10-16] MEDS: LIDOCAINE PATCH REMOVAL MC SCH (21:17)
[2021-10-17] MEDS ORDERED: DEXTROSE 5%-WATER - 50 ML IVPB ONE ×3 (00:42→17:24)
[2021-10-17] MEDS ORDERED: PIPERACILLIN/TAZOBACTAM 3.375 GM VIAL IVPB ONE ×3 (00:42→17:24)
[2021-10-17] MEDS: PIPERACILLIN/TAZOB 3.375 GM 3.375 GM in DEXTROSE 5%-WATER - 50 ML IVPB SCH ×3 (01:03→17:50)
[2021-10-17] MEDS: INSULIN SLIDING SCALE (NOVOLOG) 1 VIAL SQ SCH ×2 (05:59→17:10)
[2021-10-17] MEDS: ACETAMINOPHEN 325 MG TABLET (FP) PO PRN ×2 (08:54→23:03)
[2021-10-17 10:00] LABS: BASO % 0.3 % (0-2.0); EOS % 2.9 % (0-4.5); HEMOGLOBIN 11.3 GM/dL (10.7-15.3); LYMPH % 11.5 % (8-40); MCH 29.4 pg (25.7-33.7); MCHC 32.2 g/dl (32.0-36.0); MEAN CELL VOLUME 91.3 fl (80-96); MEAN PLT VOLUME 6.8 fl (7.5-11.1); MONO % 8.3 % (3.8-10.2); PLATELET COUNT 419 10^3/uL (134-434); RBC 3.83 M/mm3 (3.60-5.2); RDW 16.1 % (11.6-15.6); WHITE BLOOD COUNT 6.7 K/mm3 (4.0-10.0)
[2021-10-17] MEDS: PREGABALIN 50 MG CAPSULE PO SCH ×2 (10:51→21:58)
[2021-10-17] MEDS: LISINOPRIL 20 MG TABLET PO SCH (10:51)
[2021-10-17] MEDS: CYANOCOBALAMIN 1,000 MCG TABLET (FP) PO SCH (10:52)
[2021-10-17] MEDS: CHOLECALCIFEROL (VIT D3) 5000 UNITS (125 MCG) CAP PO SCH (10:52)
[2021-10-17] MEDS: ENOXAPARIN NA (PORCINE) 40 MG/0.4 ML DISP.SYRIN SQ SCH (10:53)
[2021-10-17] MEDS: PANTOPRAZOLE 40 MG TABLET PO SCH (10:53)
[2021-10-17] MEDS: LIDOCAINE 5% TOPICAL PATCH TP SCH (10:53)
[2021-10-17] MEDS: INSULIN (LEVEMIR) 100 UNITS/ML UNITS SQ SCH (10:56)
[2021-10-17] MEDS ORDERED: LEVOTHYROXINE SODIUM 100 MCG VIAL IVPUSH ONE (11:09)
[2021-10-17] MEDS: LEVOTHYROXINE NA 50 MCG TABLET (FP) PO SCH (11:19)
[2021-10-17] MEDS: ATORVASTATIN CA 40 MG TABLET (FP) PO SCH (21:58)
[2021-10-17] MEDS: LIDOCAINE PATCH REMOVAL MC SCH (22:05)
[2021-10-18 00:07] LABS: MYOGLOBIN SERUM 30 ng/mL (25-58)
[2021-10-18] MEDS ORDERED: PIPERACILLIN/TAZOBACTAM 3.375 GM VIAL IVPB ONE ×3 (01:32→17:15)
[2021-10-18] MEDS ORDERED: DEXTROSE 5%-WATER - 50 ML IVPB ONE ×3 (01:32→17:15)
[2021-10-18] MEDS: PIPERACILLIN/TAZOB 3.375 GM 3.375 GM in DEXTROSE 5%-WATER - 50 ML IVPB SCH ×5 (01:35→19:36)
[2021-10-18] MEDS: ACETAMINOPHEN 325 MG TABLET (FP) PO PRN ×2 (05:37→21:34)
[2021-10-18] MEDS: INSULIN SLIDING SCALE (NOVOLOG) 1 VIAL SQ SCH ×2 (06:15→17:45)
[2021-10-18] MEDS ORDERED: LEVOTHYROXINE NA 50 MCG TABLET (FP) PO SCH (07:00)
[2021-10-18 09:46] LABS: BASO % 0.6 % (0-2.0); EOS % 3.1 % (0-4.5); HEMATOCRIT 30.2 % (32.4-45.2); HEMOGLOBIN 10.4 GM/dL (10.7-15.3); LYMPH % 13.3 % (8-40); MCH 30.4 pg (25.7-33.7); MCHC 34.3 g/dl (32.0-36.0); MEAN CELL VOLUME 88.5 fl (80-96); MEAN PLT VOLUME 6.5 fl (7.5-11.1); MONO % 10.4 % (3.8-10.2); NEUT % 72.6 % (42.8-82.8); PLATELET COUNT 429 10^3/uL (134-434); RBC 3.42 M/mm3 (3.60-5.2); WHITE BLOOD COUNT 7.3 K/mm3 (4.0-10.0)
[2021-10-18] MEDS: ENOXAPARIN NA (PORCINE) 40 MG/0.4 ML DISP.SYRIN SQ SCH (09:50)
[2021-10-18] MEDS: INSULIN (LEVEMIR) 100 UNITS/ML UNITS SQ SCH (09:51)
[2021-10-18] MEDS: LIDOCAINE 5% TOPICAL PATCH TP SCH (09:52)
[2021-10-18] MEDS: PREGABALIN 50 MG CAPSULE PO SCH ×2 (09:56→21:34)
[2021-10-18] MEDS: PANTOPRAZOLE 40 MG TABLET PO SCH (09:57)
[2021-10-18] MEDS: CHOLECALCIFEROL (VIT D3) 5000 UNITS (125 MCG) CAP PO SCH (09:57)
[2021-10-18] MEDS: CYANOCOBALAMIN 1,000 MCG TABLET (FP) PO SCH (09:57)
[2021-10-18] MEDS: LISINOPRIL 20 MG TABLET PO SCH (09:57)
[2021-10-18 10:08] LABS: ALBUMIN 2.8 g/dl (3.4-5.0); BLOOD UREA NITROGEN 14.4 mg/dL (7-18); CALCIUM 8.9 mg/dL (8.5-10.1)
[2021-10-18 10:11] LABS: CREATININE 0.7 mg/dL (0.55-1.3)
[2021-10-18 10:12] LABS: BILIRUBIN,TOTAL 0.5 mg/dL (0.2-1); TOT PROT 6.2 g/dl (6.4-8.2)
[2021-10-18] MEDS: ALPRAZolam 0.25 MG TABLET PO PRN (17:39)
[2021-10-18] MEDS ORDERED: MINERAL OIL ENEMA 133 ML ENEMA PR ONE (21:26)
[2021-10-18] MEDS: ATORVASTATIN CA 40 MG TABLET (FP) PO SCH (21:34)
[2021-10-18] MEDS: LIDOCAINE PATCH REMOVAL MC SCH (21:36)
[2021-10-18] MEDS ORDERED: POLYETHYLENE GLYCOL (HEALTHYLAX) 3350 17 GM PACKET PO SCH (22:00)
[2021-10-18 23:04] VITALS: BP 150/90; PULSE 88; TEMP 97.5
== END 2021-10-19 00:45 | disposition short-term general hospital (02) | DRG 542 ==
LOC: JER 12:42 → JERBED 20:49 → J6S 10-15 00:21
PROVIDERS: ADMIT Internal Medicine; ATTEND Internal Medicine
DX: C79.51 Secondary malignant neoplasm of bone (principal); J18.9 Pneumonia, unspecified organism; J90 Pleural effusion, not elsewhere classified; J98.11 Atelectasis; I42.9 Cardiomyopathy, unspecified; L02.414 Cutaneous abscess of left upper limb; G62.81 Critical illness polyneuropathy; G95.29 Other cord compression; C50.912 Malignant neoplasm of unspecified site of left female breast; C50.911 Malignant neoplasm of unspecified site of right female breast; I10 Essential (primary) hypertension; M54.9 Dorsalgia, unspecified; E78.5 Hyperlipidemia, unspecified; E11.9 Type 2 diabetes mellitus without complications; E03.9 Hypothyroidism, unspecified; I89.0 Lymphedema, not elsewhere classified; K21.9 Gastro-esophageal reflux disease without esophagitis; M47.897 Other spondylosis, lumbosacral region; R26.2 Difficulty in walking, not elsewhere classified; M62.81 Muscle weakness (generalized); Z86.73 Personal history of transient ischemic attack (TIA), and cerebral infarction without residual deficits
CPT/HCPCS: 36415; 70553-TC; 71045-TC-FY; 71250-TC; 72129-TC; 72132-TC; 72142-TC; 72146-TC; 72147-TC; 72148-TC; 72149-TC; 72156-TC; 77074-TC-FY; 80053; 81003; 82085; 82550; 82607; 82728; 82962; 83036; 83540; 83550; 83874; 84155; 84165; 84484; 85025; 85610; 85651; 85730; 86038; 86140; 86850; 86900; 86901; 87040; 87070; 87086; 87186; 87205; 87899; 93005; 93010; 93306-TC; 99285-25; A9579; C9803; J0131; J1100; Q9967; U0003; U0005